=== PATIENT | female | born 1955 | race Two or more races ===

== ENCOUNTER 2022-01-01 21:31 | Inpatient (IN) | payer OTHER, MEDICAID ==
[~2022-01-01] VITALS: Ht 152.4 cm; Wt 99.3 kg
[2022-01-01 22:51] LABS: Basophils # (auto) 0 10 ^3/uL (0-0.2); Basophils % (auto) 0.4 % (0.0-2.0); Eosinophils # (auto) 0 10 ^3/uL (0-0.8); Hematocrit 35.5 % (36.0-46.0); Hemoglobin 11.2 g/dL (12.2-16.2); Lymphocytes # (auto) 1.2 10 ^3/uL (0.4-5.4); Lymphocytes % (auto) 11.8 % (10.0-50.0); Mean Corpuscular Hemoglobin 25.3 pg (28.0-32.0); Mean Corpuscular Hgb Conc. 31.5 g/dL (32.0-36.0); Mean Corpuscular Volume 80.3 fL (80.0-100.0); Monocytes # (auto) 0.7 10 ^3/uL (0-1.3); Monocytes % (auto) 6.7 % (0.0-12.0); Neutrophils % (auto) 81.1 % (37.0-80.0); Nucleated Red Blood Cells % 0.1 %; Red Blood Cells 4.43 10^6/uL (4.0-5.20); Red Cell Distribution Width 17.9 % (11.8-14.3); White Blood Cell 9.9 10^3/uL (4.4-10.8)
[2022-01-01 23:28] LABS: Albumin 3.9 g/dL (3.4-5.0); Calcium 9.3 mg/dL (8.5-10.1); Magnesium 2.2 mg/dL (1.6-2.6); Potassium 3.4 mmol/L (3.5-5.1)
[2022-01-01 23:30] LABS: BUN/Creatinine Ratio 22.9
[2022-01-01 23:31] LABS: Bilirubin, Total 0.5 mg/dL (0.2-1.0); Total Protein 9.8 g/dL (6.4-8.2)
[2022-01-01 23:48] LABS: INR 1.09 (0.9-1.15)
[2022-01-02] MEDS ORDERED: MORPHINE SULFATE INJ 2 MG/ml SYRG IV ONE ×3 (01:15→07:05)
[2022-01-02] MEDS ORDERED: FAMOTIDINE (10MG/ML) 2ML VL IV ONE (02:30)
[2022-01-02] MEDS ORDERED: ALUM & MAG HYDROX-SIMETH LIQ(MAALOX) 30 ML PO ONE (02:30)
[2022-01-02] MEDS ORDERED: LACTATED RINGER'S 1,000 ML IV ONE (02:30)
[2022-01-02] MEDS ORDERED: ONDANSETRON HCL 4 MG/2 ML VIAL IV ONE (02:30)
[2022-01-02] MEDS ORDERED: LIDOCAINE VISCOUS 2% 15ML UD PO ONE (02:30)
[2022-01-02] MEDS ORDERED: HYDROcodone-ACET 5/325MG TAB PO ONE (05:15)
[2022-01-02] MEDS ORDERED: ADENOSINE 57 MG in GIVE UN-DILUTED 0 ML IV ONE (08:45)
[2022-01-02 10:28] LABS: Urine Bacteria FEW /hpf (None Seen); Urine Blood 2+ /uL (Negative); Urine Budding Yeast OCCASIONAL /hpf (None Seen); Urine Specific Gravity 1.026 (1.001-1.035); Urine WBC 332 /hpf (0 - 5); Urine WBC Clumps PRESENT /hpf (None Seen)
[2022-01-02] MEDS ORDERED: PANTOPRAZOLE 40 MG/10 ML VIAL INJ IV ONE (10:45)
[2022-01-02] MEDS ORDERED: MORPHINE SULFATE INJ 2 MG/ml SYRG IV PRN ×2 (10:45)
[2022-01-02] MEDS ORDERED: NITROGLYCERIN 0.4 MG SL TAB SL PRN (10:45)
[2022-01-02] MEDS ORDERED: cefTRIAXone 1GM/50ML D5W 50 ML IV ONE (10:45)
[2022-01-02 10:56] LABS: Albumin 3.7 g/dL (3.4-5.0); Calcium 9.5 mg/dL (8.5-10.1)
[2022-01-02 11:03] LABS: BUN/Creatinine Ratio 21.9; Bilirubin, Total 0.5 mg/dL (0.2-1.0); Total Protein 9.6 g/dL (6.4-8.2)
[2022-01-02 11:33] LABS: Potassium 2.7 mmol/L (3.5-5.1)
[2022-01-02] MEDS: SOD CHL 0.45% 1,000 ML IV SCH ×2 (11:41→20:45)
[2022-01-02] MEDS ORDERED: POTASSIUM EFFERVESENT TAB 25 MEQ PO ONE (11:45)
[2022-01-02 11:47] LABS: Alcohol, Urine < 3.0 mg/dL (0-10); Amphetamine Screen, Urine NEGATIVE (NEGATIVE); Barbiturate Scree,Urine NEGATIVE (NEGATIVE); Benzodiazephine Screen, Urine NEGATIVE (NEGATIVE); Cocaine Screen, Urine NEGATIVE (NEGATIVE); Opiate Scree,Urine NEGATIVE (NEGATIVE); Phencyclidine Screen, Urine NEGATIVE (NEGATIVE)
[2022-01-02 11:55] LABS: Cannabinoid Screen, Urine POSITIVE (NEGATIVE)
[2022-01-02] MEDS: POTASSIUM CHL 20MEQ/100ML 100 ML IV SCH ×2 (11:57→13:45)
[2022-01-02 12:09] LABS: Eosinophils # (auto) 0.1 10 ^3/uL (0-0.8); Hemoglobin 11.2 g/dL (12.2-16.2); Lymphocytes # (auto) 0.9 10 ^3/uL (0.4-5.4)
[2022-01-02 12:12] LABS: Basophils # (auto) 0 10 ^3/uL (0-0.2); Basophils % (auto) 0.4 % (0.0-2.0); Eosinophils % (auto) 0.9 % (0.0-7.0); Lymphocytes % (auto) 8.9 % (10.0-50.0); Mean Corpuscular Hemoglobin 26.2 pg (28.0-32.0); Mean Corpuscular Hgb Conc. 32.1 g/dL (32.0-36.0); Mean Corpuscular Volume 81.4 fL (80.0-100.0); Monocytes # (auto) 0.6 10 ^3/uL (0-1.3); Monocytes % (auto) 5.8 % (0.0-12.0); Neutrophils # (auto) 8.1 10 ^3/uL (1.6-8.6); Nucleated Red Blood Cells % 0.2 %; Red Blood Cells 4.29 10^6/uL (4.0-5.20); Red Cell Distribution Width 17.8 % (11.8-14.3); White Blood Cell 9.7 10^3/uL (4.4-10.8)
[2022-01-02] MEDS ORDERED: OPTISON 3ml Vial for INJ IV ONE (14:57)
[2022-01-02 18:31] LABS: Calcium 8.9 mg/dL (8.5-10.1); Potassium 3.5 mmol/L (3.5-5.1)
[2022-01-02] MEDS ORDERED: ESZO1TAB9 PO (19:32)
[2022-01-02] MEDS ORDERED: OLAN20TA PO (19:33)
[2022-01-02] MEDS: SUCRALFATE 1 GM/10 ML ORAL SUSP PO SCH (21:01)
[2022-01-02] MEDS: PANTOPRAZOLE 40 MG/10 ML VIAL INJ IV SCH (21:01)
[2022-01-02 22:00] VITALS: BP 117/80
[2022-01-03 05:00] VITALS: BP 117/68
[2022-01-03 05:37] LABS: Basophils # (auto) 0.1 10 ^3/uL (0-0.2); Basophils % (auto) 0.9 % (0.0-2.0); Eosinophils # (auto) 0 10 ^3/uL (0-0.8); Eosinophils % (auto) 0.3 % (0.0-7.0); Hematocrit 33.3 % (36.0-46.0); Hemoglobin 10.4 g/dL (12.2-16.2); Lymphocytes # (auto) 2.1 10 ^3/uL (0.4-5.4); Lymphocytes % (auto) 25.3 % (10.0-50.0); Mean Corpuscular Hgb Conc. 31.3 g/dL (32.0-36.0); Mean Corpuscular Volume 83.2 fL (80.0-100.0); Monocytes # (auto) 0.4 10 ^3/uL (0-1.3); Monocytes % (auto) 5.2 % (0.0-12.0); Neutrophils # (auto) 5.6 10 ^3/uL (1.6-8.6); Neutrophils % (auto) 68.3 % (37.0-80.0); Red Cell Distribution Width 17.6 % (11.8-14.3); White Blood Cell 8.3 10^3/uL (4.4-10.8)
[2022-01-03 05:49] LABS: Albumin 3.2 g/dL (3.4-5.0); Calcium 8.6 mg/dL (8.5-10.1)
[2022-01-03 05:53] LABS: BUN/Creatinine Ratio 22.6; Bilirubin, Total 0.7 mg/dL (0.2-1.0); Total Protein 8.6 g/dL (6.4-8.2)
[2022-01-03] MEDS: SUCRALFATE 1 GM/10 ML ORAL SUSP PO SCH ×4 (06:19→21:10)
[2022-01-03] MEDS: SOD CHL 0.45% 1,000 ML IV SCH ×2 (07:00→16:52)
[2022-01-03 09:00] VITALS: BP 94/45
[2022-01-03] MEDS: PANTOPRAZOLE 40 MG/10 ML VIAL INJ IV SCH ×2 (09:55→21:10)
[2022-01-03] MEDS: cefTRIAXone 1GM/50ML D5W 50 ML IV SCH (09:57)
[2022-01-03] MEDS ORDERED: PANTOPRAZOLE 40 MG/10 ML VIAL INJ IV SCH (10:00)
[2022-01-03 13:00] VITALS: BP 92/60
[2022-01-03] MEDS ORDERED: POTASSIUM CHL 20 Meq TABLET PO ONE (13:30)
[2022-01-03] MEDS ORDERED: ACETAMINOPHEN 325 MG TAB PO PRN (13:30)
[2022-01-03] MEDS: POTASSIUM CHL 20MEQ/100ML 100 ML IV SCH ×2 (15:00→18:13)
[2022-01-03 17:00] VITALS: BP 102/52
[2022-01-03] MEDS: TEMAZEPAM 15 MG CAP PO PRN (21:10)
[2022-01-03 22:17] VITALS: BP 105/64
[2022-01-04 05:11] VITALS: BP 99/59
[2022-01-04] MEDS: SUCRALFATE 1 GM/10 ML ORAL SUSP PO SCH ×4 (06:01→21:07)
[2022-01-04 06:46] LABS: BUN/Creatinine Ratio 18.9; Basophils # (auto) 0 10 ^3/uL (0-0.2); Basophils % (auto) 0.3 % (0.0-2.0); Calcium 8.2 mg/dL (8.5-10.1); Eosinophils # (auto) 0 10 ^3/uL (0-0.8); Eosinophils % (auto) 0.6 % (0.0-7.0); Hematocrit 25.5 % (36.0-46.0); Hemoglobin 8.2 g/dL (12.2-16.2); Lymphocytes # (auto) 1.8 10 ^3/uL (0.4-5.4); Lymphocytes % (auto) 34.3 % (10.0-50.0); Mean Corpuscular Hemoglobin 26.4 pg (28.0-32.0); Mean Corpuscular Hgb Conc. 32.1 g/dL (32.0-36.0); Mean Corpuscular Volume 82.2 fL (80.0-100.0); Monocytes # (auto) 0.3 10 ^3/uL (0-1.3); Monocytes % (auto) 6.5 % (0.0-12.0); Neutrophils # (auto) 3.1 10 ^3/uL (1.6-8.6); Neutrophils % (auto) 58.3 % (37.0-80.0); Nucleated Red Blood Cells % 0.2 %; Potassium 3.6 mmol/L (3.5-5.1); Red Cell Distribution Width 17.2 % (11.8-14.3); White Blood Cell 5.3 10^3/uL (4.4-10.8)
[2022-01-04] MEDS ORDERED: LIDOCAINE VISCOUS 2% 15ML UD ONE (07:40)
[2022-01-04] MEDS ORDERED: SODIUM CHLORIDE LOCK 10 ML ONE (07:40)
[2022-01-04] MEDS ORDERED: diphenhdrAMINE HCL 50 MG/1 ML VL ONE (07:40)
[2022-01-04] MEDS ORDERED: MIDAZOLAM HCL 5 MG/ML-1ML VIAL ONE (07:40)
[2022-01-04] MEDS ORDERED: fentaNYL CITRATE 100 MCG/2 ML VL ONE ×2 (07:41→10:10)
[2022-01-04] MEDS ORDERED: MIDAZOLAM HCL 2MG/2ML 2ml VIAL (1mg/ml) ONE (10:10)
[2022-01-04] MEDS ORDERED: PROPOFOL 10 MG/ML 20 ML IV ONE (10:45)
[2022-01-04] MEDS ORDERED: ONDANSETRON HCL 4 MG/2 ML VIAL IV PRN (10:45)
[2022-01-04] MEDS: cefTRIAXone 1GM/50ML D5W 50 ML IV SCH (12:51)
[2022-01-04] MEDS: PANTOPRAZOLE 40 MG/10 ML VIAL INJ IV SCH ×2 (12:52→21:07)
[2022-01-04 13:00] VITALS: BP 116/61
[2022-01-04] MEDS: AZITHROMYCIN 500MG/ 250ML 250 ML IV SCH (16:58)
[2022-01-04 17:00] VITALS: BP 112/66
[2022-01-04] MEDS: ONDANSETRON HCL 4 MG/2 ML VIAL IV PRN (19:48)
[2022-01-04] MEDS: HYDROcodone-ACET 5/325MG TAB PO PRN (21:08)
[2022-01-04] MEDS: SOD CHL 0.45% 1,000 ML IV SCH (21:45)
[2022-01-04 21:59] VITALS: BP 117/64
[2022-01-04 22:29] LABS: Protein, Urine 46.1 mg/dL (0.0-11.9)
[2022-01-04] MEDS: TEMAZEPAM 15 MG CAP PO PRN (23:42)
[2022-01-05 05:00] VITALS: BP 100/59
[2022-01-05] MEDS: SUCRALFATE 1 GM/10 ML ORAL SUSP PO SCH ×4 (06:01→17:30)
[2022-01-05] MEDS: HYDROcodone-ACET 5/325MG TAB PO PRN ×2 (06:04→13:16)
[2022-01-05 06:05] LABS: Basophils # (auto) 0 10 ^3/uL (0-0.2); Basophils % (auto) 0.4 % (0.0-2.0); Eosinophils # (auto) 0 10 ^3/uL (0-0.8); Lymphocytes # (auto) 1.4 10 ^3/uL (0.4-5.4); Mean Corpuscular Volume 82.8 fL (80.0-100.0); Monocytes # (auto) 0.4 10 ^3/uL (0-1.3)
[2022-01-05 06:08] LABS: Eosinophils % (auto) 0.4 % (0.0-7.0); Hematocrit 27.2 % (36.0-46.0); Hemoglobin 8.6 g/dL (12.2-16.2); Lymphocytes % (auto) 27.9 % (10.0-50.0); Mean Corpuscular Hemoglobin 26.1 pg (28.0-32.0); Mean Corpuscular Hgb Conc. 31.6 g/dL (32.0-36.0); Monocytes % (auto) 8.3 % (0.0-12.0); Neutrophils # (auto) 3.2 10 ^3/uL (1.6-8.6); Nucleated Red Blood Cells % 0.1 %; Red Blood Cells 3.28 10^6/uL (4.0-5.20); Red Cell Distribution Width 17.5 % (11.8-14.3); White Blood Cell 5.1 10^3/uL (4.4-10.8)
[2022-01-05 06:22] LABS: BUN/Creatinine Ratio 13.9; Calcium 7.8 mg/dL (8.5-10.1); Potassium 3.4 mmol/L (3.5-5.1)
[2022-01-05] MEDS ORDERED: PNEUMOCOCCAL VACC POLYS 25 MCG/0.5 ML VIAL IM ONE (07:00)
[2022-01-05] MEDS: SOD CHL 0.45% 1,000 ML IV SCH ×2 (08:45→18:45)
[2022-01-05 09:22] VITALS: BP 105/63
[2022-01-05] MEDS: cefTRIAXone 1GM/50ML D5W 50 ML IV SCH (09:32)
[2022-01-05] MEDS: PANTOPRAZOLE 40 MG/10 ML VIAL INJ IV SCH (09:32)
[2022-01-05] MEDS: AZITHROMYCIN 500MG/ 250ML 250 ML IV SCH (10:15)
[2022-01-05 12:37] VITALS: BP 113/69
[2022-01-05] MEDS: ONDANSETRON HCL 4 MG/2 ML VIAL IV PRN ×2 (13:16→17:26)
[2022-01-05] MEDS ORDERED: POTASSIUM CHL 20MEQ/100ML 100 ML IV ONE (14:15)
[2022-01-05] MEDS ORDERED: LEVO500T31 PO (14:37)
[2022-01-05] MEDS ORDERED: PANT40TA2 PO (14:37)
[2022-01-05 16:38] VITALS: BP 120/80
[2022-01-05 18:00] VITALS: BP 113/69
== END 2022-01-05 19:30 | disposition home health service (06) | DRG 391 ==
LOC: EDBD 21:31 → ER 21:31 → TELE 01-02 10:40 → TELE-CENTR 01-02 16:42
PROVIDERS: ADMIT Registered Nurse; ATTEND Internal Medicine
PROC: 0DB68ZX Excision of Stomach, Via Natural or Artificial Opening Endoscopic, Diagnostic (ICD-10-PCS; principal; 2022-01-04 10:05)
DX: K29.70 Gastritis, unspecified, without bleeding (principal); J96.01 Acute respiratory failure with hypoxia; E87.1 Hypo-osmolality and hyponatremia; N17.9 Acute kidney failure, unspecified; N39.0 Urinary tract infection, site not specified; Z68.41 Body mass index [BMI] 40.0-44.9, adult; J98.11 Atelectasis; K92.1 Melena; E66.01 Morbid (severe) obesity due to excess calories; E86.0 Dehydration; E87.6 Hypokalemia; G89.29 Other chronic pain; I10 Essential (primary) hypertension; K31.7 Polyp of stomach and duodenum; Z98.84 Bariatric surgery status; D64.9 Anemia, unspecified; E78.5 Hyperlipidemia, unspecified; M54.9 Dorsalgia, unspecified; R31.9 Hematuria, unspecified; R79.89 Other specified abnormal findings of blood chemistry; R80.9 Proteinuria, unspecified; R82.4 Acetonuria; R94.31 Abnormal electrocardiogram [ECG] [EKG]; Z88.8 Allergy status to other drugs, medicaments and biological substances; Z71.6 Tobacco abuse counseling
CPT/HCPCS: 36415; 36600; 71045; 71250; 78452; 78582; 80048; 80053; 80061; 80307; 81001; 82570; 82805; 83036; 83690; 83735; 83880; 84156; 84484; 85025; 85379; 85610; 85730; 87086; 93005; 93017; 93306; 93970; 96361; 96365; 96375; 96376; C9113; G0378; J0153; J0696; J2250; J2405; J2704; J3480; J3490; Q9956

== ENCOUNTER 2022-12-01 21:01 | Inpatient (IN) | payer OTHER, MEDICAID ==
[~2022-12-01] VITALS: Ht 167.6 cm; Wt 108.1 kg
[~2022-12-01 21:01] MED LIST: ESZO1TAB9 PO; LEVO500T31 PO; OLAN20TA PO; PANT40TA2 PO
[2022-12-01 22:03] LABS: Basophils # (auto) 0 10 ^3/uL (0-0.2); Basophils % (auto) 0.4 % (0.0-2.0); Eosinophils # (auto) 0.1 10 ^3/uL (0-0.8); Eosinophils % (auto) 1.2 % (0.0-7.0); Hematocrit 24.5 % (36.0-46.0); Hemoglobin 7.3 g/dL (12.2-16.2); Lymphocytes # (auto) 2.2 10 ^3/uL (0.4-5.4); Lymphocytes % (auto) 39.3 % (10.0-50.0); Mean Corpuscular Hemoglobin 19.3 pg (28.0-32.0); Mean Corpuscular Hgb Conc. 29.8 g/dL (32.0-36.0); Mean Corpuscular Volume 64.8 fL (80.0-100.0); Monocytes # (auto) 0.5 10 ^3/uL (0-1.3); Monocytes % (auto) 8.9 % (0.0-12.0); Neutrophils # (auto) 2.8 10 ^3/uL (1.6-8.6); Neutrophils % (auto) 50.2 % (37.0-80.0); Nucleated Red Blood Cells % 0.1 %; Red Blood Cells 3.77 10^6/uL (4.0-5.20); Red Cell Distribution Width 21.2 % (11.8-14.3); White Blood Cell 5.5 10^3/uL (4.4-10.8)
[2022-12-01 22:20] LABS: Albumin 3.1 g/dL (3.4-5.0); Calcium 7.9 mg/dL (8.5-10.1); Magnesium 1.6 mg/dL (1.6-2.6)
[2022-12-01 22:24] LABS: BUN/Creatinine Ratio 7.7 (10.0-20.0); Bilirubin, Total 0.3 mg/dL (0.2-1.0); Total Protein 8.7 g/dL (6.4-8.2)
[2022-12-01 22:28] LABS: Potassium 2.8 mmol/L (3.5-5.1)
[2022-12-01 22:39] LABS: INR 1.01 (0.9-1.15); Partial Thromboplastin Time 25.7 sec (24.6-33.4)
[2022-12-01] MEDS ORDERED: POTASSIUM EFFERVESENT TAB 25 MEQ PO ONE (22:45)
[2022-12-01] MEDS ORDERED: LACTATED RINGER'S 2,000 ML IV ONE (23:15)
[2022-12-02] MEDS ORDERED: ONDANSETRON HCL 4 MG/2 ML VIAL IV ONE (04:15)
[2022-12-02] MEDS ORDERED: HYDROmorphone HCL 2 MG/ML VL/or syr IV ONE (04:15)
[2022-12-02 04:19] LABS: Urine Bacteria FEW /hpf (None Seen); Urine Blood Negative /uL (Negative); Urine Specific Gravity 1.001 (1.001-1.035); Urine WBC 7 /hpf (0 - 5)
[2022-12-02] MEDS ORDERED: ACETAMINOPHEN 325 MG TAB PO PRN (04:45)
[2022-12-02] MEDS ORDERED: MORPHINE SULFATE INJ 2 MG/ml SYRG IV PRN ×2 (04:45→06:15)
[2022-12-02] MEDS ORDERED: ONDANSETRON HCL 4 MG/2 ML VIAL IV PRN (04:45)
[2022-12-02] MEDS ORDERED: DOCUSATE SOD 100 MG CAP PO PRN (04:45)
[2022-12-02] MEDS: SODIUM CHLORIDE 0.9% 1,000 ML IV SCH ×2 (05:09→21:44)
[2022-12-02 05:27] LABS: Hematocrit 23.7 % (36.0-46.0); Mean Corpuscular Volume 66.3 fL (80.0-100.0); Monocytes # (auto) 0.4 10 ^3/uL (0-1.3); Nucleated Red Blood Cells % 0.1 %; Red Blood Cells 3.57 10^6/uL (4.0-5.20); White Blood Cell 5.8 10^3/uL (4.4-10.8)
[2022-12-02 05:29] LABS: Basophils # (auto) 0.1 10 ^3/uL (0-0.2); Eosinophils # (auto) 0.1 10 ^3/uL (0-0.8); Lymphocytes % (auto) 33.7 % (10.0-50.0); Mean Corpuscular Hemoglobin 19.6 pg (28.0-32.0); Mean Corpuscular Hgb Conc. 29.6 g/dL (32.0-36.0); Monocytes % (auto) 6.8 % (0.0-12.0); Neutrophils # (auto) 3.3 10 ^3/uL (1.6-8.6); Neutrophils % (auto) 57.5 % (37.0-80.0)
[2022-12-02 05:50] LABS: Albumin 2.8 g/dL (3.4-5.0); Calcium 7.6 mg/dL (8.5-10.1); Potassium 3.1 mmol/L (3.5-5.1)
[2022-12-02 05:53] LABS: BUN/Creatinine Ratio 8.3 (10.0-20.0); Bilirubin, Total 0.2 mg/dL (0.2-1.0); Total Protein 7.9 g/dL (6.4-8.2)
[2022-12-02] MEDS ORDERED: NITROGLYCERIN 0.4 MG SL TAB SL PRN (06:15)
[2022-12-02 07:18] LABS: Red Cell Distribution Width 20.9 % (11.8-14.3)
[2022-12-02 07:19] LABS: Hemoglobin 7.1 g/dL (12.2-16.2)
[2022-12-02] MEDS ORDERED: POTASSIUM CHL 20 Meq TABLET PO ONE (07:45)
[2022-12-02] MEDS ORDERED: ASPirin 81 mg TAB PO SCH (10:00)
[2022-12-02] MEDS: FAMOTIDINE (10MG/ML) 2ML VL IV SCH ×2 (10:04→21:44)
[2022-12-02] MEDS ORDERED: POTASSIUM CHL 20MEQ/100ML 100 ML IV ONE (10:15)
[2022-12-02] MEDS: cefTRIAXone 1GM/50ML D5W 50 ML IV SCH (10:50)
[2022-12-02 10:58] LABS: % Iron Saturation 3.2 % (15-50)
[2022-12-02 12:23] VITALS: BP 140/50
[2022-12-02] MEDS ORDERED: OLAN10TA PO (12:40)
[2022-12-02 12:56] VITALS: BP 140/50
[2022-12-02] MEDS: HYDROcodone-ACET 5/325MG TAB PO PRN ×2 (15:50→21:43)
[2022-12-02 17:00] VITALS: BP 130/72
[2022-12-02] MEDS ORDERED: IRON SUCROSE COMPLEX 200 MG in SODIUM CHL 0.9% 100 ML IV SCH (17:00)
[2022-12-02] MEDS ORDERED: MIRT-94 PO (17:10)
[2022-12-02] MEDS ORDERED: LEV25T PO (17:11)
[2022-12-02] MEDS: SODIUM FERR GLUC 62.5MG/5ML 125 MG in SODIUM CHL 0.9% 100 ML IV SCH (19:35)
[2022-12-02] MEDS ORDERED: ESZO1TAB21 PO (19:37)
[2022-12-02] MEDS ORDERED: PREG-110 PO (19:41)
[2022-12-02 19:56] LABS: Hematocrit 23.8 % (36.0-46.0); Mean Corpuscular Hemoglobin 18.9 pg (28.0-32.0); Mean Corpuscular Hgb Conc. 28.6 g/dL (32.0-36.0); Mean Corpuscular Volume 65.8 fL (80.0-100.0); Red Blood Cells 3.61 10^6/uL (4.0-5.20); White Blood Cell 4.7 10^3/uL (4.4-10.8)
[2022-12-02 20:05] LABS: BUN/Creatinine Ratio 5.3 (10.0-20.0); Calcium 7.7 mg/dL (8.5-10.1); Potassium 3.4 mmol/L (3.5-5.1)
[2022-12-02 20:07] LABS: Hemoglobin 6.8 g/dL (12.2-16.2); Red Cell Distribution Width 21.5 % (11.8-14.3)
[2022-12-02 20:08] LABS: Band Neutrophils % (manual) 0; Basophils % (manual) 0 (0.0-2.0); Blast Cells 0; Eosinophils % (manual) 0 (0-7); Metamyelocytes % 0; Myelocytes % 0; Promyelocytes % 0; Reactive Lymphocytes 0
[2022-12-02] MEDS: ATORVASTATIN 20 MG TAB PO SCH (21:44)
[2022-12-02 22:00] VITALS: BP 120/58
[2022-12-02 22:22] LABS: Lymphocytes % (manual) 42 (10.0-50.0); Monocytes % (manual) 9 (0-12)
[2022-12-02] MEDS: MELATONIN 5 MG TAB PO PRN (23:13)
[2022-12-03] VITALS (13 sets, daily range): BP systolic 100–157; BP diastolic 46–85
[2022-12-03 07:10] LABS: Hemoglobin 7.4 g/dL (12.2-16.2); Mean Corpuscular Volume 68.9 fL (80.0-100.0); Nucleated Red Blood Cells % 0.2 %
[2022-12-03 07:12] LABS: Basophils # (auto) 0.1 10 ^3/uL (0-0.2); Eosinophils # (auto) 0.1 10 ^3/uL (0-0.8); Eosinophils % (auto) 2.5 % (0.0-7.0); Hematocrit 24.3 % (36.0-46.0); Lymphocytes # (auto) 1.2 10 ^3/uL (0.4-5.4); Lymphocytes % (auto) 23.3 % (10.0-50.0); Mean Corpuscular Hemoglobin 20.9 pg (28.0-32.0); Mean Corpuscular Hgb Conc. 30.4 g/dL (32.0-36.0); Monocytes # (auto) 0.4 10 ^3/uL (0-1.3); Monocytes % (auto) 8.2 % (0.0-12.0); Neutrophils # (auto) 3.4 10 ^3/uL (1.6-8.6); Red Blood Cells 3.53 10^6/uL (4.0-5.20); Red Cell Distribution Width 24.3 % (11.8-14.3); White Blood Cell 5.2 10^3/uL (4.4-10.8)
[2022-12-03 07:28] LABS: Potassium 3.1 mmol/L (3.5-5.1)
[2022-12-03 07:35] LABS: Albumin 2.5 g/dL (3.4-5.0); Bilirubin, Total 0.6 mg/dL (0.2-1.0); Calcium 7.2 mg/dL (8.5-10.1); Total Protein 6.9 g/dL (6.4-8.2)
[2022-12-03] MEDS: cefTRIAXone 1GM/50ML D5W 50 ML IV SCH (08:58)
[2022-12-03] MEDS: FAMOTIDINE (10MG/ML) 2ML VL IV SCH ×2 (08:58→21:34)
[2022-12-03] MEDS: SODIUM FERR GLUC 62.5MG/5ML 125 MG in SODIUM CHL 0.9% 100 ML IV SCH (12:38)
[2022-12-03] MEDS: POTASSIUM CHL 20MEQ/100ML 100 ML IV SCH ×2 (13:23→23:21)
[2022-12-03] MEDS ORDERED: POTASSIUM CHL 20 Meq TABLET PO ONE (14:30)
[2022-12-03] MEDS ORDERED: MAGNESIUM SULFATE 1GM/100ML 200 ML IV ONE (20:31)
[2022-12-03] MEDS ORDERED: POTASSIUM CHL 20MEQ/100ML 200 ML IV ONE (20:31)
[2022-12-03] MEDS: MAGNESIUM SULFATE 1GM/100ML 100 ML IV SCH ×2 (20:45→22:21)
[2022-12-03] MEDS: SODIUM CHLORIDE 0.9% 1,000 ML IV SCH (20:46)
[2022-12-03] MEDS: ATORVASTATIN 20 MG TAB PO SCH (21:34)
[2022-12-03] MEDS: MELATONIN 5 MG TAB PO PRN (21:35)
[2022-12-04] MEDS: HYDROcodone-ACET 5/325MG TAB PO PRN (00:19)
[2022-12-04] MEDS: POTASSIUM CHL 20MEQ/100ML 100 ML IV SCH (02:48)
[2022-12-04 05:00] VITALS: BP 135/69
[2022-12-04 06:10] LABS: BUN/Creatinine Ratio 3.6 (10.0-20.0); Calcium 8.2 mg/dL (8.5-10.1); Potassium 3.2 mmol/L (3.5-5.1)
[2022-12-04 06:31] LABS: Basophils # (auto) 0 10 ^3/uL (0-0.2); Eosinophils # (auto) 0.1 10 ^3/uL (0-0.8); Hemoglobin 7.4 g/dL (12.2-16.2); Mean Corpuscular Hemoglobin 21.1 pg (28.0-32.0); Neutrophils # (auto) 3.1 10 ^3/uL (1.6-8.6); Red Blood Cells 3.52 10^6/uL (4.0-5.20); White Blood Cell 4.9 10^3/uL (4.4-10.8)
[2022-12-04 06:33] LABS: Basophils % (auto) 0.3 % (0.0-2.0); Eosinophils % (auto) 2.3 % (0.0-7.0); Lymphocytes # (auto) 1.1 10 ^3/uL (0.4-5.4); Lymphocytes % (auto) 22.3 % (10.0-50.0); Mean Corpuscular Hgb Conc. 30.9 g/dL (32.0-36.0); Mean Corpuscular Volume 68.1 fL (80.0-100.0); Monocytes # (auto) 0.5 10 ^3/uL (0-1.3); Monocytes % (auto) 10.8 % (0.0-12.0); Neutrophils % (auto) 64.3 % (37.0-80.0); Nucleated Red Blood Cells % 0.7 %
[2022-12-04 06:51] LABS: Red Cell Distribution Width 24.4 % (11.8-14.3)
[2022-12-04] MEDS: FAMOTIDINE (10MG/ML) 2ML VL IV SCH (09:21)
[2022-12-04] MEDS: cefTRIAXone 1GM/50ML D5W 50 ML IV SCH (09:21)
[2022-12-04] MEDS ORDERED: DOCU-94 PO (11:15)
[2022-12-04] MEDS ORDERED: FER325T PO (11:15)
[2022-12-04] MEDS ORDERED: BACDST PO (11:16)
[2022-12-04] MEDS ORDERED: POTASSIUM CHL 20 Meq TABLET PO ONE (12:30)
[2022-12-04 13:00] VITALS: BP 143/77
[2022-12-04] MEDS: SODIUM FERR GLUC 62.5MG/5ML 125 MG in SODIUM CHL 0.9% 100 ML IV SCH (13:11)
[2022-12-04 14:52] VITALS: BP 143/77
[2022-12-05 11:20] LABS: Folate (Folic Acid) 4.25 ng/mL (5.38-24)
== END 2022-12-04 15:30 | disposition home or self-care (01) | DRG 812 ==
LOC: ER 21:01 → TELE 12-02 06:08 → TELE-CENTR 12-02 11:50
PROVIDERS: ADMIT Nurse Practitioner Family; ATTEND Internal Medicine
PROC: 30233N1 Transfusion of Nonautologous Red Blood Cells into Peripheral Vein, Percutaneous Approach (ICD-10-PCS; principal; 2022-12-03)
DX: D50.9 Iron deficiency anemia, unspecified (principal); N39.0 Urinary tract infection, site not specified; N17.9 Acute kidney failure, unspecified; K90.9 Intestinal malabsorption, unspecified; R07.89 Other chest pain; E87.6 Hypokalemia; D69.6 Thrombocytopenia, unspecified; G47.00 Insomnia, unspecified; I10 Essential (primary) hypertension; E83.51 Hypocalcemia; E88.09 Other disorders of plasma-protein metabolism, not elsewhere classified; G25.2 Other specified forms of tremor; G89.29 Other chronic pain; E11.9 Type 2 diabetes mellitus without complications; G20 Parkinson's disease; D63.8 Anemia in other chronic diseases classified elsewhere; Z98.84 Bariatric surgery status
CPT/HCPCS: 36415; 71045; 80048; 80053; 81001; 82270; 82607; 82728; 82746; 83540; 83550; 83615; 83735; 83880; 84132; 84425; 84484; 85007; 85025; 85027; 85610; 85730; 86850; 86900; 86901; 86920; 87086; 93005; 93306; 96361; 96365; 96375; 99291; G0378; J0696; J1756; J2405; J3480; J3490

== ENCOUNTER 2023-06-25 10:56 | Emergency (ER) | payer OTHER, MEDICAID ==
[~2023-06-25] VITALS: Ht 167.6 cm; Wt 93.2 kg
[~2023-06-25 10:56] MED LIST changes: +BACDST PO; +DOCU-94 PO; +ESZO1TAB21 PO; -ESZO1TAB9 PO; +FER325T PO; +LEV25T PO; -LEVO500T31 PO; +MIRT-94 PO; +OLAN10TA PO; -OLAN20TA PO; +PREG-110 PO
[2023-06-25] MEDS ORDERED: SODIUM CHLORIDE 0.9% 500 ML IV ONE (11:45)
[2023-06-25 12:29] LABS: Basophils # (auto) 0.1 10 ^3/uL (0-0.2); Basophils % (auto) 0.8 % (0.0-2.0); Eosinophils # (auto) 0.2 10 ^3/uL (0-0.8); Eosinophils % (auto) 2.3 % (0.0-7.0); Hematocrit 43.7 % (36.0-46.0); Hemoglobin 14.3 g/dL (12.2-16.2); Lymphocytes # (auto) 1.8 10 ^3/uL (0.4-5.4); Lymphocytes % (auto) 23.9 % (10.0-50.0); Mean Corpuscular Hemoglobin 29.6 pg (28.0-32.0); Mean Corpuscular Hgb Conc. 32.7 g/dL (32.0-36.0); Mean Corpuscular Volume 90.6 fL (80.0-100.0); Monocytes # (auto) 0.6 10 ^3/uL (0-1.3); Monocytes % (auto) 8.7 % (0.0-12.0); Neutrophils # (auto) 4.7 10 ^3/uL (1.6-8.6); Neutrophils % (auto) 64.3 % (37.0-80.0); Red Blood Cells 4.82 10^6/uL (4.0-5.20); Red Cell Distribution Width 14.2 % (11.8-14.3); White Blood Cell 7.3 10^3/uL (4.4-10.8)
[2023-06-25 12:47] LABS: Alanine Aminotransferase 11 U/L (7-40); Albumin 4.8 g/dL (3.2-4.8); Alkaline Phosphatase 140 U/L (46-116); Anion Gap 13 (5-15); Aspartate Aminotransferase 15 U/L (13-40); BUN/Creatinine Ratio 6.8 (10.0-20.0); Blood Urea Nitrogen 27 mg/dL (9-23); Calcium 9.6 mg/dL (8.5-10.1); Carbon Dioxide 25 mmol/L (20-30); Chloride 95 mmol/L (98-107); Glucose 148 mg/dL (74-106); Sodium 133 mmol/L (136-145)
[2023-06-25 12:48] LABS: Bilirubin, Total 0.6 mg/dL (0.2-1.0); Total Protein 9.6 g/dL (5.7-8.2)
[2023-06-25] MEDS ORDERED: POTASSIUM EFFERVESENT TAB 25 MEQ PO ONE (14:45)
[2023-06-25 16:49] VITALS: BP 127/67; PULSE 105; RESP 20; TEMP 97.3; O2SAT 94
[2023-06-25] MEDS: ONDANSETRON HCL 4 MG/2 ML VIAL IV ONE ×2 (16:51→17:25)
== END 2023-06-25 18:05 | disposition home or self-care (01) ==
LOC: ER 10:56
DX: G45.9 Transient cerebral ischemic attack, unspecified (principal); E87.6 Hypokalemia; R53.1 Weakness; R42 Dizziness and giddiness; F12.10 Cannabis abuse, uncomplicated
CPT/HCPCS: 36415; 70450; 80053; 82962; 83605; 84484; 85025; 87040; 93005; 96361; 96374; 99285; J2405; J7040

== ENCOUNTER 2025-03-18 18:47 | Emergency (ER) | payer BC, MEDICAID ==
[~2025-03-18] VITALS: Ht 167.6 cm; Wt 90.0 kg
[~2025-03-18 18:47] MED LIST changes: -ESZO1TAB21 PO; +ESZO2TAB24 PO; -PREG-110 PO; +PREG100C66 PO
--- NOTE | 2025-03-18 20:00 | DVH ---
EXAM: CT HEAD WITHOUT CONTRAST INDICATION: NATARAJAN TECHNIQUE: CT of the head without intravenous contrast. Radiation Dose : 1. Head: CT Dose: CTDI volume is 51.89 mGy. Dose-length product is 935.65 mGy*cm The dose indicators for CT are the volume Computed Tomography (CT) Dose Index (CTDIvol) and the Dose Length Product (DLP), and are measured in units of mGy and mGy-cm, respectively. These indicators are not patient dose, but values generated from the CT scanner acquisition factors. The report includes radiation exposure data for exposures received during this examination. COMPARISON: CT HEAD WITHOUT CONTRAST on DOS: 06/25/23 FINDINGS: Evaluation is mildly degraded by motion and streak artifact. No acute territorial infarct, intracranial hemorrhage, or mass effect. There are global involutional changes with compensatory prominence of the ventricles and sulci. Patchy periventricular and subcorti eddie white matter hypoattenuation is nonspecific but may be related to small vessel ischemic disease. The orbits are normal. The paranasal sinuses and mastoid air cells are clear. The osseous structures are unremarkable. IMPRESSION: 1. No acute territorial infarct, intracranial hemorrhage, or mass effect. 2. Age-related involutional changes. Chronic microvascular changes. 3. If clinical symptoms persist, MRI may be beneficial in further evaluation. Radiation optimization: All CT scans at this facility use at least one of these dose optimization millicent hniques: automated exposure control mA and/or kV adjustment per patient size (includes targeted exam s where dose is matched to clinical indication) or iterative reconstruction.
--- NOTE | 2025-03-18 20:07 | DVH ---
CHEST RADIOGRAPH REASON FOR EXAM: body aches COMPARISON: XY CHEST PORTABLE on DOS: 12/01/22, CHEST WITHOUT CONTRAST on DOS: 01/04/22, CXRP on DOS: , CHEST PORTABLE on DOS: 01/01/22 TECHNIQUE: One view of the chest is provided FINDINGS: The cardiomediastinal silhouette is stable. There is aortic atherosclerosis. There is eleva tion of the right hemidiaphragm, unchanged. There is platelike atelectasis at the right lung base. No other focal airspace disease is identified. There is no significant pleural effusion. There is no p neumothorax. No acute osseous abnormality is identified. IMPRESSION: Platelike atelectasis of the right lung base. No other focal airspace disease is identified. Persistent elevation of the right hemidiaphragm.
[2025-03-18 21:02] LABS: Alanine Aminotransferase 11 U/L (7-40); Albumin 4.6 g/dL (3.2-4.8); Alkaline Phosphatase 108 U/L (46-116); Anion Gap 14 (5-15); BUN/Creatinine Ratio 8.2 (10.0-20.0); Bilirubin, Total 0.4 mg/dL (0.2-1.0); Calcium 9.6 mg/dL (8.7-10.4); Carbon Dioxide 22 mmol/L (20-31)
[2025-03-18 21:06] LABS: Blood Urea Nitrogen 8 mg/dL (9-23); Chloride 104 mmol/L (98-107); Glucose 114 mg/dL (74-106); Potassium 3.9 mmol/L (3.5-5.1); Sodium 140 mmol/L (136-145); Total Protein 9.1 g/dL (5.7-8.2)
--- NOTE | 2025-03-18 21:13 | ED.PDOC ---
GI ASSESSMENT HPI Comments HPI: 70-year-old female presents to the ED with chief complain of bilateral lower back pain onset 2 months. Patient has been experiencing headache, currently resolved, body aches, bilateral flank pain and tingling to bilateral feet for the past 2 months. Patient states she saw PCP about 1 month ago, was diagnosed with yeast infection, was not prescribed medication. She also states she was experiencing diarrhea, was taking Imodium and Pepto-Bismol, has now controlled diarrhea. Denies any fall, injury, trauma, shortness a breath, chest pain, dizziness, cough, congestion, dysuria, hematuria. No other symptoms or modifying factors present at this time. Initial Vitals BP: 175/102 HR: 67 RR: 20 O2: 98% Temp: 99.5 F Past Medical History: Denies Past Surgical History: gastric bypass Social History: Denies ETOH, smoking, and drug use. Medications: Lipitor Allergies: Prochlorperazine SHARYN: Multiple vague complaints HPI: Poor Historian. REVIEW OF SYSTEMS: CONSTITUTIONAL: Denies acute: fever, diaphoresis, chills, generalized weakness. HEAD: Denies acute: photophobia Eyes: Denies acute: Double vision, vision loss, eye pain, eye discharge. EARS: Denies acute: tinnitus, hearing loss, ear discharge, ear pain, THROAT: Denies acute: sore throat, swelling, difficulty swallowing , pain with swallowing, change in voice. NECK: Denies acute: neck pain, neck swelling, stiff neck. HEART: Denies acute : chest pain, palpitations, LUNGS: Denies acute: SOB, wheezing, cough, hemoptysis ABDOMEN: Denies acute: abdominal pain, Nausea, Vomiting, diarrhea, melena , hematemesis, hematochezia SKIN: Denies acute: rash, redness, lesions, itchiness. EXTREMITIES: Denies acute: calf pain, numbness, tingling, weakness, denies pain in extremity. Neuro: Denies acute: focal neurological deficit, motor or sensory focal neurological deficit, tremors, seizure like activity, confusion, dizziness, change in mental status, loss of bowel or bladder function, cauda equina like symptoms. : Denies acute: dysuria, hematuria, flank pain, increase in urinary frequency. PSYCH: Denies acute: hallucination, suicidal ideation, homicidal ideation. FEMALE: Denies acute: abnormal vaginal bleeding, foul odor, unusual discharge. PHYSICAL EXAM: General: ------no--acute distress, awake and alert. Head: normocephalic, atraumatic. Neck: supple, trachea is midline, no swelling. Throat: Normal phonation. Eyes:, no erythema, no purulent discharge, no proptosis, no icterus. Heart: regular rate, regular rhythm, no significant murmur appreciated. Lungs: no apparent respiratory distress, Able to speak in full sentences. No wheezing, no rhonchi, no crackles. No stridors Clear to auscultation bilaterally. Abdomen: non tender to palpation, non distended, soft, no guarding, no rebound, + bowel sounds. Mild nonspecific bilateral posterior iliac crest tenderness to palpation Neuro: Awake, Alert, oriented to name, self, situation, follows commands GCS=15. Speech is normal. Skin: no petechia, no purpura, no cyanosis, non-pale, not jaundice. Lower extremities: --no - Pitting edema no deformity, no focal swelling, no calf TTP. Makes eye contact. moves all four extremities. Face: no apparent facial droop. ED COURSE: DISCLAIMER: This medical document was created using an electronic medical record system with voice recognition software and computerized dictation system. Although this document has been carefully reviewed, there might still be some phonetic and typographical errors. Occasional wrong-word or "sound-alike" substitutions may have occurred due to the inherent limitations of voice recognition software. The se areas are purely typographical due to imperfections of the software programs and do not reflect any compromise in the patient's medical care. Please read the chart carefully and recognize, using context, where these substitutions have occurred. Chief Complaint: Headache Time Seen by MD: 21:00 Primary Care Provider: DANTE Reviewed Notes: Medications, Allergies Allergies: Coded Allergies: Prochlorperazine (Verified Allergy, Unknown, 01/01/22) Home Meds Active Scripts Sulfamethoxazole W/Trimethopri (Bactrim Ds Tablet) 1 Tab Tb, 1 TAB PO BID, #10 TAB Prov:LITO OHARA MD 12/04/22 Docusate Sodium (Colace) 100 Mg Cap, 100 MG PO DAILY PRN MDD Constipation, #30 MG Prov:LITO OHARA MD 12/04/22 Ferrous Sulfate (Ferrous Sulfate) 325 Mg Tab, 325 MG PO TIDWMEALS, #90 MG Prov:LITO OHARA MD 12/04/22 Pantoprazole Sodium Sesquihydr (Protonix) 40 Mg Tab, 40 MG PO BID, #60 TAB Prov:LITO OHARA MD 01/05/22 Reported Medications Pregabalin (Pregabalin) 100 Mg Cap, 1 CAP PO TID 12/02/22 Eszopiclone (Lunesta) 2 Mg Tab, 1 TAB PO QHSP PRN for INSOMNIA 12/02/22 Levothyroxine Sodium (Levothyroxine Sodium) 25 Mcg Tab, 1 TAB PO DAILY 12/02/22 Mirtazapine (REMERON) 30 Mg Tab, 1 TAB PO 12/02/22 Olanzapine (Zyprexa) 10 Mg Tab, 1 TAB PO 12/02/22 Information Source: Patient, Relative Mode of Arrival: Wheelchair Timing: Months Duration: Since onset Prehospital treatment: None Vomitus: None Stool: Loose Severity: Moderate Recent: None Recent Hx of: None Pain Location: Other (bilateral flank) Modifying Factors: Nothing Past Medical History PAST MEDICAL HISTORY: Denies Surgical History (Other): gastric bypass ELDERLY SITTER History: Denies all ELDERLY SITTER Hx Family History Family History: Reviewed,noncontributory to illness Social History Smoker: Non-Smoker Alcohol: Denies ETOH Use Drugs: Marijuana Lives In: Home Was a procedure done? Was a procedure done?: No GI differential Dx Differential Diagnosis: Other (Includes but not limited to thyroid disease, encephalopathy, electrolyte abnormality, sepsis, infection, intracranial pathology, drug adverse effects, arrhythmia, kidney insufficiency, ACS, CVA, malignancy, anemia) X-Ray, Labs, Meds, VS Vital Signs Date Time Temp Pulse Resp B/P (MAP) Pulse Ox O2 Delivery O2 Flow Rate FiO2 03/19/25 01:47 98.5 61 18 171/75 (107) 98 98.5 03/18/25 21:25 58 16 156/92 (113) 98 03/18/25 19:03 67 03/18/25 18:53 99.5 85 20 175/102 98 99.5 Lab Test 03/18/25 21:22 03/18/25 20:15 03/18/25 19:48 Range/Units White Blood Count 5.2 4.4-10.8 10^3/uL Red Blood Count 4.64 4.0-5.20 10^6/uL Hemoglobin 13.0 12.2-16.2 g/dL Hematocrit 39.4 36.0-46.0 % Mean Corpuscular Volume 84.9 80.0-100.0 fL Mean Corpuscular Hemoglobin 28.0 28.0-32.0 pg Mean Corpuscular Hemoglobin Concent 33.0 32.0-36.0 g/dL Red Cell Distribution Width 16.2 H 11.8-14.3 % Platelet Count 323 140-450 10^3/uL Mean Platelet Volume 7.6 6.9-10.8 fL Neutrophils (%) (Auto) 59.9 37.0-80.0 % Lymphocytes (%) (Auto) 29.7 10.0-50.0 % Monocytes (%) (Auto) 5.7 0.0-12.0 % Eosinophils (%) (Auto) 4.3 0.0-7.0 % Basophils (%) (Auto) 0.4 0.0-2.0 % Neutrophils # (Auto) 3.1 1.6-8.6 10 ^3/uL Lymphocytes # (Auto) 1.6 0.4-5.4 10 ^3/uL Monocytes # (Auto) 0.3 0-1.3 10 ^3/uL Eosinophils # (Auto) 0.2 0-0.8 10 ^3/uL Basophils # (Auto) 0 0-0.2 10 ^3/uL Nucleated Red Blood Cells 0.1 % Urine Color Light-yellow Yellow Urine Clarity Clear Clear Urine pH 6.0 5.0-9.0 Urine Specific [place] 1.008 1.001-1.035 Urine Protein Negative Negative Urine Ketones Negative Negative Urine Blood Negative Negative /uL Urine Nitrite Negative Negative Urine Bilirubin Negative Negative Urine Urobilinogen Normal Negative mg/dL Urine Leukocyte Esterase Negative Negative /uL Urine RBC None seen 0 - 4 /hpf Urine Microscopic WBC 1 0-5 /HPF Urine Squamous Epithelial Cells Few <5 /hpf Urine Bacteria None seen None Seen /hpf Urine Glucose Normal Normal mg/dL Troponin I High Sensitivity 7 9 </=34 ng/L Influenza Type A Antigen Negative Negative Influenza Type B Antigen Negative Negative SARS-CoV-2 Antigen (Rapid) Negative NEGATIVE Sodium Level 140 136-145 mmol/L Potassium Level 3.9 3.5-5.1 mmol/L Chloride Level 104 98-107 mmol/L Carbon Dioxide Level 22 20-31 mmol/L Anion Gap 14 5-15 Blood Urea Nitrogen 8 L 9-23 mg/dL Creatinine 0.97 0.550-1.02 mg/dL Glomerular Filtration Rate Calc 62 >90 mL/min BUN/Creatinine Ratio 8.2 L 10.0-20.0 Serum Glucose 114 H 74-106 mg/dL Calcium Level 9.6 8.7-10.4 mg/dL Total Bilirubin 0.4 0.2-1.0 mg/dL Aspartate Amino Transferase (AST) 19 13-40 U/L Alanine Aminotransferase (ALT) 11 7-40 U/L Alkaline Phosphatase 108 46-116 U/L Total Protein 9.1 H 5.7-8.2 g/dL Albumin 4.6 3.2-4.8 g/dL [place] [address] Ph: [phone] DIAGNOSTIC IMAGING Diagnostic Imaging Report : [id number] Signed PATIENT: ROBERT COLESACCT: [id number] UNIT: [id number] : 1955 LOC: ER ROOM / BED: / AGE / SEX: 70 / F ADM STATUS: REG ER SERVICE 17 ORDERING PHYSICIAN: DANII WELDON DO PROCEDURE(s): HWOCT - HEAD WITHOUT CONTRAST REASON: NATARAJAN ORDER NUMBER(s): [id number], ACCESSION NUMBER(s): [id number] EXAM: CT HEAD WITHOUT CONTRAST INDICATION: NATARAJAN TECHNIQUE: CT of the head without intravenous contrast. Radiation Dose : 1. Head: CT Dose: CTDI volume is 51.89 mGy. Dose-length product is 935.65 mGy*cm The dose indicators for CT are the volume Computed Tomography (CT) Dose Index (CTDIvol) and the Dose Length Product (DLP), and are measured in units of mGy and mGy-cm, respectively. These indicators are not patient dose, but values generated from the CT scanner acquisition factors. The report includes radiation exposure data for exposures received during this examination. COMPARISON: CT HEAD WITHOUT CONTRAST on DOS: 06/25/23 FINDINGS: Evaluation is mildly degraded by motion and streak artifact. No acute territorial infarct, intracranial hemorrhage, or mass effect. There are global involutional changes with compensatory prominence of the ventricles and sulci. Patchy periventricular and subcortical white matter hypoattenuation is nonspecific but may be related to small vessel ischemic disease. The orbits are normal. The paranasal sinuses and mastoid air cells are clear. The osseous structures are unremarkable. IMPRESSION: 1. No acute territorial infarct, intracranial hemorrhage, or mass effect. 2. Age-related involutional changes. Chronic microvascular changes. 3. If clinical symptoms persist, MRI may be beneficial in further evaluation. Radiation optimization: All CT scans at this facility use at least one of these dose optimization techniques: automated exposure control mA and/or kV adjustment per patient size (includes targeted exams where dose is matched to clinical indication) or iterative reconstruction. ATED BY: RODGER LISA MD DICTATED DATE/TIME: 03/18/251956 SIGNED BY: RODGER LISA MD SIGNED DATE/TIME: 03/18/251956 CC: [place] [address] Ph: [phone] DIAGNOSTIC IMAGING Diagnostic Imaging Report : [id number] Signed PATIENT: ROBERT COLESACCT: [id number] UNIT: [id number] : 1955 LOC: ER ROOM / BED: / AGE / SEX: 70 / F ADM STATUS: REG ER SERVICE 17 ORDERING PHYSICIAN: DANII WELDON DO PROCEDURE(s): CXRP - CHEST PORTABLE REASON: body aches ORDER NUMBER(s): [id number], ACCESSION NUMBER(s): [id number] CHEST RADIOGRAPH REASON FOR EXAM: body aches COMPARISON: XY CHEST PORTABLE on DOS: 12/01/22, CHEST WITHOUT CONTRAST on DOS: 01/04/22, CXRP on DOS: 01/01/22, CHEST PORTABLE on DOS: 01/01/22 TECHNIQUE: One view of the chest is provided FINDINGS: The cardiomediastinal silhouette is stable. There is aortic atherosclerosis. There is elevation of the right hemidiaphragm, unchanged. There is platelike atelectasis at the right lung base. No other focal airspace disease is identified. There is no significant pleural effusion. There is no pneumo thorax. No acute osseous abnormality is identified. IMPRESSION: Platelike atelectasis of the right lung base. No other focal airspace disease is identified. Persistent elevation of the right hemidiaphragm. ATED BY: PORTER ABRAMS MD DICTATED DATE/TIME: 03/18/252004 SIGNED BY: PORTER ABRAMS MD SIGNED DATE/TIME: 03/18/252004 CC: Time of 1ST Reevaluation: 21:30 Reevaluation 1ST: Unchanged Patient Education/Counseling: Diagnosis, Treatment Family Education/Counseling: Diagnosis, Treatment Comments MDM: patient presented with the above HPI.--multiple complaints of headache side pains-and body aches---workup was initiated. patient was found with the above mentioned diagnosis. the following medications were ordered: please refer to order lists of meds and tests obtained by myself Dr. Weldon. Patient ED course and VS have been stabilized. Patient has been reassessed in the ED and remained in a stable condition. Pertinent incidental findings were discussed with the patient and/or family. Patient/family voices understanding and is agreeable with plan. Patient has been observed in the ED adequate length of time to insure improvement/stability. Escalation of care considered: Consideration of escalation to observation or admission Patient was DISCHARGED home in a stable condition. All the reports of any imaging studies that were ordered by myself were reviewed by myself. Departure 1 Departure Time of Disposition: 01:00 Impression: Primary Impression: Body aches Additional Impression: Headache Disposition: HOME / SELF CARE / HOMELESS Condition: Stable Additional Instructions: Additional instructions: Please read all instructions provided in this packet carefully. You MUST follow-up with your primary care/family doctor in 1 to 2 days. If you are unable to see your primary care/family doctor, please return to our emergency room for re-assessment and re-evaluation in 1 to 2 days. Return to the emergency room here in our facility or to the nearest ER [facility] if your symptoms change or worsen. CONSULTATIONS: you MUST Follow-up for consultation as soon as possible with: Dr.-cardiology and gastroenterology and urology and OB Gyne doctor as needed in 1-2 days. Please call for appointment You MUST call the consultants office yourself to make an appointment. You may need to arrange that through your insurance and/or your primary/family doctor. If you are unable to see the as400 consultant in 1 to 2 days, you must return to our emergency room (or any other ER of your choice) for re-assessment and re- evaluation. Adequate fluid hydration. Although you have been discharged from the Emergency Department, this does not mean that you have a "clean bill of health". No definitive diagnosis for your symptoms has been made today. It is possible that you are in the process of developing a serious illness. This is why you must return to the ED without fail if any new or worsening symptoms develop. Below is a copy of your radiological report for follow up: [place] [address] Ph: [phone] DIAGNOSTIC IMAGING Diagnostic Imaging Report : [id number] Signed PATIENT: ROBERT COLES ACCT: [id number] UNIT: [id number] : 1955 LOC: ER ROOM / BED: / AGE / SEX: 70 / F ADM STATUS: REG ER SERVICE 17 ORDERING PHYSICIAN: DANII WELDON DO PROCEDURE(s): HWOCT - HEAD WITHOUT CONTRAST REASON: NATARAJAN ORDER NUMBER(s): [id number], ACCESSION NUMBER(s): [id number] EXAM: CT HEAD WITHOUT CONTRAST INDICATION: NATARAJAN TECHNIQUE: CT of the head without intravenous contrast. Radiation Dose : 1. Head: CT Dose: CTDI volume is 51.89 mGy. Dose-length product is 935.65 mGy*cm The dose indicators for CT are the volume Computed Tomography (CT) Dose Index (CTDIvol) and the Dose Length Product (DLP), and are measured in units of mGy and mGy-cm, respectively. These indicators are not patient dose, but values generated from the CT scanner acquisition factors. The report includes radiation exposure data for exposures received during this examination. COMPARISON: CT HEAD WITHOUT CONTRAST on DOS: 06/25/23 FINDINGS: Evaluation is mildly degraded by motion and streak artifact. No acute territorial infarct, intracranial hemorrhage, or mass effect. There are global involutional changes with compensatory prominence of the ventricles and sulci. Patchy periventricular and subcortical white matter hypoattenuation is nonspecific but may be related to small vessel ischemic disease. The orbits are normal. The paranasal sinuses and mastoid air cells are clear. The osseous structures are unremarkable. IMPRESSION: 1. No acute territorial infarct, intracranial hemorrhage, or mass effect. 2. Age-related involutional changes. Chronic microvascular changes. 3. If clinical symptoms persist, MRI may be beneficial in further evaluation. Radiation optimization: All CT scans at this facility use at least one of these dose optimization techniques: automated exposure control mA and/or kV adjustment per patient size (includes targeted exams where dose is matched to clinical indication) or iterative reconstruction. ATED BY: RODGER LISA MD DICTATED DATE/TIME: 03/18/251956 SIGNED BY: RODGER LISA MD SIGNED DATE/TIME: 03/18/251956 CC: [place] [address] Ph: [phone] DIAGNOSTIC IMAGING Diagnostic Imaging Report : [id number] Signed PATIENT: ROBERT COLES ACCT: [id number] UNIT: [id number] : 1955 LOC: ER ROOM / BED: / AGE / SEX: 70 / F ADM STATUS: REG ER SERVICE 17 ORDERING PHYSICIAN: DANII WELDON DO PROCEDURE(s): CXRP - CHEST PORTABLE REASON: body aches ORDER NUMBER(s): [id number], ACCESSION NUMBER(s): [id number] CHEST RADIOGRAPH REASON FOR EXAM: body aches COMPARISON: XY CHEST PORTABLE on DOS: 12/01/22, CHEST WITHOUT CONTRAST on DOS: 01/04/22, CXRP on DOS: 01/01/22, CHEST PORTABLE on DOS: 01/01/22 TECHNIQUE: One view of the chest is provided FINDINGS: The cardiomediastinal silhouette is stable. There is aortic atherosclerosis. There is elevation of the right hemidiaphragm, unchanged. There is platelike atelectasis at the right lung base. No other focal airspace disease is identified. There is no significant pleural effusion. There is no pneumothorax. No acute osseous abnormality is identified. IMPRESSION: Platelike atelectasis of the right lung base. No other focal airspace disease is identified. Persistent elevation of the right hemidiaphragm. ATED BY: PORTER ABRAMS MD DICTATED DATE/TIME: 03/18/252004 SIGNED BY: PORTER ABRAMS MD SIGNED DATE/TIME: 03/18/252004 [place] [address] Ph: [phone] DIAGNOSTIC IMAGING Diagnostic Imaging Report : [id number] Signed PATIENT: ROBERT COLES ACCT: [id number] UNIT: [id number] : 1955 LOC: ER ROOM / BED: / AGE / SEX: 70 / F ADM STATUS: REG ER SERVICE [id number] ORDERING PHYSICIAN: DANII WELDON DO PROCEDURE(s): ABPL - CT AB PEL WO CON-NO ORAL OR IV REASON: pain ORDER NUMBER(s): [id number], ACCESSION NUMBER(s): [id number] Exam: CT CT AB PEL WO CON-NO ORAL OR IV History: Abdominal pain Comparison Study: ECIDC on DOS: 01/02/22, ECIDC on DOS: 01/02/22 TECHNIQUE: Multidetector CT of the abdomen and pelvis was performed from lung bases to pubic symphysis. Imaging was performed without IV contrast. Axial, coronal, and sagittal multiplanar reformats were obtained from the axial data set by the technologist. RADIATION DOSE: CTDI vol 20.38 mGy. DLP 1163.27 mGy.cm Findings: Lungs: The lung bases are clear. Liver: Unremarkable. 2.3 cm cystic perihepatic lesion. Spleen: Unremarkable. Pancreas: Unremarkable. Gallbladder: Prior cholecystectomy. Adrenals: Unremarkable Kidneys: Unremarkable. Pelvic Viscera: The uterus is not visualized and may be surgically absent. Vasculature: Mild atherosclerotic vascular calcifications. Retroperitoneum: Unremarkable. Bowel: No bowel obstruction. Postsurgical changes of the stomach. Portions of the bowel are decompressed, limiting assessment. Musculoskeletal: Grade 1 anterolisthesis of L4 on L5. Soft tissues: Unremarkable Impression: 1. No acute abdominopelvic abnormality identified. 2. Incidental findings as detailed. ATED BY: RODGER LISA MD DICTATED DATE/TIME: 03/19/2554 SIGNED BY: RODGER LISA MD SIGNED DATE/TIME: 03/19/2554 CC: Discharged With: Self, Relative Critical Care Note Critical Care Time?: No I personally scribed for DANII WELDON DO ([email or web address]) on 03/18/25 at 21:13. Electronically submitted by Monserrat Huynh ([email or web address]). DANII WELDON DO Mar 18, 2025 21:13
[2025-03-18 21:24] LABS: COVID19 ANTIGEN SOFIA FIA NEGATIVE (NEGATIVE)
[2025-03-18 21:51] LABS: Hematocrit 39.4 % (36.0-46.0); Hemoglobin 13.0 g/dL (12.2-16.2); Mean Corpuscular Hemoglobin 28.0 pg (28.0-32.0); Mean Corpuscular Volume 84.9 fL (80.0-100.0); Nucleated Red Blood Cells % 0.1 %
[2025-03-18 23:32] LABS: Urine Protein, UAD Negative (Negative)
--- NOTE | 2025-03-19 00:58 | DVH ---
Exam: CT CT AB PEL WO CON-NO ORAL OR IV History: Abdominal pain Comparison Study: ECIDC on DOS: 01/02/22, ECIDC on DOS: 01/02/22 TECHNIQUE: Multidetector CT of the abdomen and pelvis was performed from lung bases to pubic symphysi s. Imaging was performed without IV contrast. Axial, coronal, and sagittal multiplanar reformats were obtained from the axial data set by the technologist. RADIATION DOSE: CTDI vol 20.38 mGy. DLP 1163.27 mGy.cm Findings: Lungs: The lung bases are clear. Liver: Unremarkable. 2.3 cm cystic perihepatic lesion. Spleen: Unremarkable. Pancreas: Unremarkable. Gallbladder: Prior cholecystectomy. Adrenals: Unremarkable Kidneys: Unremarkable. Pelvic Viscera: The uterus is not visualized and may be surgically absent. Vasculature: Mild atherosclerotic vascular calcifications. Retroperitoneum: Unremarkable. Bowel: No bowel obstruction. Postsurgical changes of the stomach. Portions of the bowel are decompres sed, limiting assessment. Musculoskeletal: Grade 1 anterolisthesis of L4 on L5. Soft tissues: Unremarkable Impression: 1. No acute abdominopelvic abnormality identified. 2. Incidental findings as detailed.
[2025-03-19 01:47] VITALS: BP 171/75; PULSE 61; RESP 18; TEMP 98.5; O2SAT 98
--- NOTE | 2025-03-19 06:22 | ECG ---
[facility] Test Date: 2025-03-18 Test Time: 19:03:52 Pat Name: ROBERT COLES Department: ED Room: Gender: F Gardening Supervisor: abisai : 1955 Requested By: EMERGENCY EMERGENCY Order Number: [id number] Reading MD: Measurements Intervals [place] Rate: 67 P: 68 KS: 146 QRS: 69 QRSD: 85 T: 66 QT: 396 QTc: 418 Interpretive Statements Sinus rhythm Low voltage, precordial leads Probable anteroseptal infarct, old Please click the below link to view image of tracing.
== END 2025-03-19 01:50 | disposition home or self-care (01) ==
LOC: ER 18:51
DX: R51.9 Headache, unspecified (principal); R19.7 Diarrhea, unspecified; R10.9 Unspecified abdominal pain; M54.50 Low back pain, unspecified; F12.90 Cannabis use, unspecified, uncomplicated; Z79.890 Hormone replacement therapy; Z98.84 Bariatric surgery status; Z79.899 Other long term (current) drug therapy; Z20.822 Contact with and (suspected) exposure to COVID-19
CPT/HCPCS: 36415; 70450; 71045; 74176; 80053; 81001; 84484; 87426; 87804; 93005

== ENCOUNTER 2025-06-01 07:24 | Inpatient (IN) | payer BC, OTHER ==
[~2025-06-01] VITALS: Ht 167.6 cm; Wt 88.1 kg
[2025-06-01 07:52] VITALS: PULSE 116; RESP 20; O2SAT 94
--- NOTE | 2025-06-01 08:01 | ED.PDOC ---
GI ASSESSMENT HPI Comments 70 year old female with PMHx HLD, CVA, [place], thyroid disease presents to the ED with a chief complaint of nausea/vomiting onset 5 days. Patient states she has been experiencing diffused abdominal pain as well as nausea, vomiting, dysuria, chills. She has experienced similar symptoms in the past, was diagnosed with UTI. Last marijuana use was last night. Denies hematemesis, chest pain, dizziness, headache, melena, constipation, shortness of breath, fever. No other symptoms or modifying factors present at this time. Chief Complaint: Nausea/Vomiting Time Seen by MD: 07:45 Primary Care Provider: DANTE Reviewed Notes: Medications, Allergies Allergies: Coded Allergies: Prochlorperazine (Verified Allergy, Unknown, 01/01/22) Home Meds Active Scripts Sulfamethoxazole W/Trimethopri (Bactrim Ds Tablet) 1 Tab Tb, 1 TAB PO BID, #10 TAB Prov:LITO OHARA MD 12/04/22 Docusate Sodium (Colace) 100 Mg Cap, 100 MG PO DAILY PRN MDD Constipation, #30 MG Prov:LITO OHARA MD 12/04/22 Ferrous Sulfate (Ferrous Sulfate) 325 Mg Tab, 325 MG PO TIDWMEALS, #90 MG Prov:LITO OHARA MD 12/04/22 Pantoprazole Sodium Sesquihydr (Protonix) 40 Mg Tab, 40 MG PO BID, #60 TAB Prov:LITO OHARA MD 01/05/22 Reported Medications Pregabalin (Pregabalin) 100 Mg Cap, 1 CAP PO TID 12/02/22 Eszopiclone (Lunesta) 2 Mg Tab, 1 TAB PO QHSP PRN for INSOMNIA 12/02/22 Levothyroxine Sodium (Levothyroxine Sodium) 25 Mcg Tab, 1 TAB PO DAILY 12/02/22 Mirtazapine (REMERON) 30 Mg Tab, 1 TAB PO 12/02/22 Olanzapine (Zyprexa) 10 Mg Tab, 1 TAB PO 12/02/22 Information Source: Patient Mode of Arrival: Ambulatory Timing: Days Duration: Since onset Prehospital treatment: None Quality: Sharp Severity: Moderate Recent: None Recent Hx of: None Pain Location: Diffuse Modifying Factors: Nothing Associated sign and symptoms: Nausea, Vomiting, Abdominal Pain Past Medical History PAST MEDICAL HISTORY: CVA, High Lip[place], [place], Thyroid Surgical History: Cholecystectomy, Hysterectomy Surgical History (Other): gastric bypass STOCK BROKER History: Denies all STOCK BROKER Hx Family History Family History: Reviewed,noncontributory to illness Social History Smoker: Non-Smoker Alcohol: Occasionally Drugs: Marijuana Lives In: Home Constitutional: reports: chills; denies: diaphoresis, fatigue, fever, malaise, sweats, weakness, others EENTM: denies: blurred vision, double vision, ear bleeding, ear discharge, ear drainage, ear pain, ear ringing, eye pain, eye redness, hearing loss, mouth pain, mouth swelling, nasal discharge, nose bleeding, nose congestion, nose pain, photophobia, tearing, throat pain, throat swelling, voice changes, others Respiratory: denies: cough, hemoptysis, orthopnea, SOB at rest, shortness of breath, SOB with excertion, stridor, wheezing, others Cardiovascular: denies: chest pain, dizzy spells, diaphoresis, Dyspnea on exertion, edema, irregular heart beat, left arm pain, lightheadedness, palpitations, PND, syncope, others Gastrointestinal: reports: abdominal pain, nausea, vomiting; denies: abdomen distended, blood streaked bowels, constipated, diarrhea, dysphagia, difficulty swallowing, hematemesis, melena, poor appetite, poor fluid intake, rectal bleeding, rectal pain, others Genitourinary: reports: dysuria; denies: abnormal vagina bleeding, burning, dy spareunia, flank pain, frequency, hematuria, incontinence, pain, , vagina discharge, urgency, others Neurological: denies: dizziness, fainting, headache, left sided numbness, left sided weakness, numbness, paresthesia, pre-existing deficit, right sided numbness, right sided weakness, seizure, speech problems, tingling, tremors, weakness, others Musculoskeletal: denies: back pain, gout, joint pain, joint swelling, muscle pain, muscle stiffness, neck pain, others Integumetry: denies: bruises, change in color, change in hair/nails, dryness, laceration, lesions, lumps, rash, wounds, others Allergic/Immunocompromised: denies: Difficulty Healing, Frequent Infections, Hi ves, Itching, others Hematologic/Lymphatic: denies: anemia, blood clots, easy bleeding, easy bruising, swollen glands, others Endocrine: denies: excessive hunger, excessive sweating, excessive thirst, excessive urination, flushing, intolerance to cold, intolerance to heat, unexplained weight gain, unexplained weight loss, others Psychiatric: denies: anxiety, bipolar disorder, depression, hopeless, panic disorder, schizophrenia, sleepless, suicidal, others All Other Systems: Reviewed and Negative Physical Exam General Appearance: Moderate Distress HEENT: Normal ENT Inspection, Pharynx Normal, TMs Normal Neck: Full Range of Motion, Non-Tender, Normal, Normal Inspection Respiratory: Chest Non-Tender, Lungs Clear, No Accessory Muscle Use, No Respiratory Distress, Normal Breath Sounds Cardiovascular: No Edema, No JVD, No Murmur, No Gallop, Tachycardia Breast Exam: Deferred Gastrointestinal: Diffuse, No Organomegaly, No Pulsatile Mass, Normal Bowel Sounds, Soft, Tenderness Genitalia: Deferred Pelvic: Deferred Rectal: Deferred Extremities: No calf tenderness, Normal capillary refill, Normal inspection, Normal range of motion, Non-tender, No pedal edema Musculoskeletal : Apperance: Normal Neurologic: Alert, automatic bow maker machine tender II-XII nml as Tested, No Motor Deficits, Normal Affect, Normal Mood, No Sensory Deficits Cerebellar Function: Normal Reflexes: Normal Skin: Dry, Normal Color, Warm Lymphatic: No Adenopathy EKG EKG : Pulse Rate (adult): 126 Cardiac Rhythm: ST Comments low voltage Was a procedure done? Was a procedure done?: No GI differential Dx Differential Diagnosis: Gastritis/PUD, Gastroenteritis, Inflammatory BD, Pancreatitis, UTI, Electrolyte Imbalance, Food Poisoning X-Ray, Labs, Meds, VS Vital Signs Date Time Temp Pulse Resp B/P (MAP) Pulse Ox O2 Delivery O2 Flow Rate FiO2 06/01/25 08:27 111 06/01/25 08:01 126 06/01/25 07:52 99.1 118 20 127/88 (101) 94 99.1 06/01/25 07:52 116 20 94 Room Air* 0 21 06/01/25 07:37 126 06/01/25 07:27 97.9 129 18 127/91 97 97.9 Lab Test 06/01/25 07:57 Range/Units White Blood Count 10.2 4.4-10.8 10^3/uL Red Blood Count 4.99 4.0-5.20 10^6/uL Hemoglobin 14.0 12.2-16.2 g/dL Hematocrit 43.1 36.0-46.0 % Mean Corpuscular Volume 86.4 80.0-100.0 fL Mean Corpuscular Hemoglobin 28.1 28.0-32.0 pg Mean Corpuscular Hemoglobin Concent 32.6 32.0-36.0 g/dL Red Cell Distribution Width 16.3 H 11.8-14.3 % Platelet Count 435 140-450 10^3/uL Mean Platelet Volume 8.0 6.9-10.8 fL Neutrophils (%) (Auto) 84.8 H 37.0-80.0 % Lymphocytes (%) (Auto) 10.0 10.0-50.0 % Monocytes (%) (Auto) 4.8 0.0-12.0 % Eosinophils (%) (Auto) 0.0 0.0-7.0 % Basophils (%) (Auto) 0.4 0.0-2.0 % Neutrophils # (Auto) 8.7 H 1.6-8.6 10 ^3/uL Lymphocytes # (Auto) 1.0 0.4-5.4 10 ^3/uL Monocytes # (Auto) 0.5 0-1.3 10 ^3/uL Eosinophils # (Auto) 0 0-0.8 10 ^3/uL Basophils # (Auto) 0 0-0.2 10 ^3/uL Nucleated Red Blood Cells 0.1 % Sodium Level 149 H 136-145 mmol/L Potassium Level 3.0 L 3.5-5.1 mmol/L Chloride Level 103 98-107 mmol/L Carbon Dioxide Level 25 20-31 mmol/L Anion Gap 21 H 5-15 Blood Urea Nitrogen 29 H 9-23 mg/dL Creatinine 2.40 H 0.550-1.02 mg/dL Glomerular Filtration Rate Calc 21 >90 mL/min BUN/Creatinine Ratio 12.1 10.0-20.0 Serum Glucose 168 H 74-106 mg/dL Calcium Level 10.7 H 8.7-10.4 mg/dL Total Bilirubin 0.6 0.2-1.0 mg/dL Aspartate Amino Transferase (AST) 29 13-40 U/L Alanine Aminotransferase (ALT) 14 7-40 U/L Alkaline Phosphatase 102 46-116 U/L Total Protein 10.0 H 5.7-8.2 g/dL Albumin 5.1 H 3.2-4.8 g/dL Lipase 28 12-53 U/L IV Hep-Lock was established The patient is being signed out to Dr. Zuñiga The patient's BUN is 29 the creatinine is 2.4 The patient was given Zofran 4 mg IV push for the nausea The CBC is within normal limits. The glucose is 168 Images Reviewed?: Images reviewed and evaluated by me Time of 1ST Reevaluation: 08:15 Reevaluation 1ST: Unchanged Patient Education/Counseling: Diagnosis, Treatment, Prognosis Family Education/Counseling: No Family Present SEPSIS Sepsis Screen Date sepsis recognized/suspect: Jun 01, 2025 Time Sepsis recognized/suspect: 729 Recent Procedure: No On Antibiotic Therapy: No Respiratory Rate >20: No Heart Rate >90: Yes Temp<36 C (96.8 F) or >38.3 C: No SBP <90 or MAP <65 mmHG: No New Acute Mental Status Change: No Is the patient on CPAP, BIPAP,: No Physician Orders Electrocardigram (06/01/25 07:34) Urinalysis (06/01/25 07:45) Ct Ab Pel Wo Con-No Oral Or Iv (06/01/25 07:45) Heplock Iv (06/01/25 07:45) Vital Signs Date Time Temp Pulse Resp B/P (MAP) Pulse Ox O2 Delivery O2 Flow Rate FiO2 06/01/25 08:27 111 06/01/25 08:01 126 06/01/25 07:52 99.1 118 20 127/88 (101) 94 99.1 06/01/25 07:52 116 20 94 Room Air* 0 21 06/01/25 07:37 126 06/01/25 07:27 97.9 129 18 127/91 97 97.9 Laboratory Tests Test 06/01/25 07:57 White Blood Count 10.2 10^3/uL (4.4-10.8) Departure 1 Departure Time of Disposition: 09:16 Impression: Primary Impression: Intractable abdominal pain Additional Impression: Intractable vomiting Disposition: ADMITTED INPATIENT Admit to: Med Surg Condition: Fair Critical Care Note Critical Care Time?: No Stability Stability form required: Yes Unstable for transfer: ED Physician Assesment (Clinical assesment) Heart Score Heart Score: Heart Score Response (Comments) Value History N/A 0 EKG N/A 0 Age N/A 0 Risk Factors N/A 0 Troponin N/A 0 Total 0 I personally scribed for JAYLEEN JACOB MD ([email or web address]) on 06/01/25 at 08:01. Electronically submitted by Monserrat Huynh ([email or web address]). JAYLEEN JACOB MD Jun 01, 2025 08:01
[2025-06-01 08:15] LABS: Hematocrit 43.1 % (36.0-46.0); Hemoglobin 14.0 g/dL (12.2-16.2); Mean Corpuscular Hemoglobin 28.1 pg (28.0-32.0); Mean Corpuscular Volume 86.4 fL (80.0-100.0); Nucleated Red Blood Cells % 0.1 %
[2025-06-01 08:22] LABS: Alanine Aminotransferase 14 U/L (7-40); Alkaline Phosphatase 102 U/L (46-116); Anion Gap 21 (5-15); BUN/Creatinine Ratio 12.1 (10.0-20.0); Carbon Dioxide 25 mmol/L (20-31); Chloride 103 mmol/L (98-107)
[2025-06-01 08:23] LABS: Albumin 5.1 g/dL (3.2-4.8); Bilirubin, Total 0.6 mg/dL (0.2-1.0); Blood Urea Nitrogen 29 mg/dL (9-23); Calcium 10.7 mg/dL (8.7-10.4); Glucose 168 mg/dL (74-106); Potassium 3.0 mmol/L (3.5-5.1); Sodium 149 mmol/L (136-145); Total Protein 10.0 g/dL (5.7-8.2)
[2025-06-01 09:07] LABS: Lipase 28 U/L (12-53)
[2025-06-01] MEDS: PANTOPRAZOLE 40 MG/10 ML VIAL INJ IV ONE (09:51)
[2025-06-01] MEDS: ONDANSETRON HCL 4 MG/2 ML VIAL IV ONE ×2 (09:51→11:21)
[2025-06-01] MEDS: SODIUM CHLORIDE 0.9% 500 ML IVB ONE (09:53)
--- NOTE | 2025-06-01 09:59 | DVH ---
Exam: CT CT AB PEL WO CON-NO ORAL OR IV History: Pain. Comparison Study: CT CT AB PEL WO CON-NO ORAL OR IV on DOS: 03/18/25, [facility] on DOS: 01/02/22, [facility] on DOS: 01/02/22 Technique: Multidetector spiral CT of the abdomen and pelvis was performed from lung bases to pubic symphysis. Imaging was performed without intravenous contrast. Coronal and sagittal multiplanar reformats were obtained from the axial data set by the technologist. Radiation Dose : 1. Abdomen/Pelvis: CTDIvol 10.78 mGy, DLP 606.1 mGy*cm. Findings: Evaluation of vasculature and solid organs is limited due to lack of intravenous contrast use. Lung Bases: Lung bases are clear. Visualized portions of the heart and pericardium are unremarkable. Liver: The liver is normal in size. No focal lesions. Gallbladder and Biliary Tree: The gallbladder is surgically absent. No intrahepatic or extrahepatic biliary ductal dilatation. Spleen: Unremarkable Pancreas: There is peripancreatic fat stranding. No fluid collection. Adrenal Glands: Unremarkable Kidneys: Kidneys are unremarkable without calculi or hydronephrosis. GI tract: There are postsurgical changes from prior gastric bypass surgery. Visualized portions of the stomach are unremarkable. No small bowel dilatation or mucosal thickening. Colon is underdistended. No findings to suggest acute appendicitis. Peritoneum/mesentery/retroperitoneum. No evidence of free intraperitoneal air. No ascites. No evidence of suspicious lymphadenopathy. Abdominal Wall: Unremarkable. Vasculature: The visualized abdominal aorta is normal in size and caliber. Evaluation of abdominal and pelvic vessels is limited due to lack of intravenous contrast. Urinary Bladder: Grossly unremarkable for degree of distention. Pelvic Organs: Unremarkable Musculoskeletal: No aggressive focal bony lesions, acute fractures or dislocation. There is grade 1 anterolisthesis at L4-L5. IMPRESSION: 1. Peripancreatic fat stranding which may represent acute pancreatitis. Correlation with pancreatic laboratory values is recommended. No fluid collection. 2. Postsurgical changes from prior gastric bypass surgery.
[2025-06-01] MEDS: fentaNYL CITRATE 100 MCG/2 ML VL IV ONE (11:22)
[2025-06-01] MEDS ORDERED: DEXTROSE (50%) 50ML SYRG IV PRN (12:15)
--- NOTE | 2025-06-01 12:36 | DVHHPRES ---
History of Present Illness Resident Creating Document: MAYTEAIXAKOLBY RESIDENT History of Present Illness Patient is a 70-year-old female with a medical history of GERD, depression, bipolar disorder, hypothyroidism, hypothyroidism gastric bypass in 1982, insomnia presented to the ED with a chief complaint of intractable nausea vomiting for 1 week. Patient reported she started to have nausea and subsequent vomiting last week on Sunday which was gradually progressive, initially she was able to tolerate a liquid and since she has not been able to keep anything down. Denied vomiting any bright red blood, reports vomiting dark brown flecks. She also reported of associated abdominal pain in the left upper quadrant and in the epigastric area and reported of chest pain when she vomited and a sensation of food getting stuck in the chest when she swallowed. Denied any fever or chills, no food intake outside of normal prior to illness. Patient reports since she got the gastric bypass surgery she has had episodes of intractable nausea or vomiting every 2-3 years. The last time she was hospitalized because of intractable nausea vomiting was about 3 years ago when she underwent EGD in this facility because at the time she had coffee-ground emesis and melena which showed gastritis, gastric polyps from 35-40 cm. Patient reports that she changed insurance and has not been taking her medications for about 2 years. Medical history: As per HPI Surgical history: Gastric bypass surgery, cholecystectomy, hysterectomy Social history: Patient denies smoking, alcohol, drug use Home medications: Was taking olanzapine, mirtazapine, Ambien but since her insurance if she has not been taking medications for about 2 years Review of Systems Review of Systems Reports mild nausea Last vomiting was in the morning today which was watery without any blood Allergies: Coded Allergies: Prochlorperazine (Verified Allergy, Unknown, 01/01/22) Exam Vital Signs Vital Signs Date Time Temp Pulse Resp B/P (MAP) Pulse Ox O2 Delivery O2 Flow Rate FiO2 06/01/25 11:22 141/98 06/01/25 08:27 111 06/01/25 07:52 99.1 20 94 99.1 06/01/25 07:52 Room Air* 0 21 Exam Skin - Patients skin is warm and dry. HEENT - normocephalic, atraumatic, moist mucous membranes, no pallor or icterus Neck - full ROM, no LAD, no JVD Pulmonary - B/L clear breath sounds without any rales or wheezing cardiovascular - regular S1,S2 heard, no added sounds, no murmurs heard. GI - soft abdomen with tenderness to palpation in the epigastrium, left upper quadrant and mild tenderness in the right upper quadrant. no hepatospleenomegaly. Bowel sounds hypoactive Neurological - Patient is A/O X 4. Bilateral upper extremity strength 5/5, bilateral lower extremity strength 5/5, no facial droop, normal speech, no tremor, no sensory deficiets. Labs/Xrays Labs Test 06/01/25 07:57 Range/Units White Blood Count 10.2 4.4-10.8 10^3/uL Red Blood Count 4.99 4.0-5.20 10^6/uL Hemoglobin 14.0 12.2-16.2 g/dL Hematocrit 43.1 36.0-46.0 % Mean Corpuscular Volume 86.4 80.0-100.0 fL Mean Corpuscular Hemoglobin 28.1 28.0-32.0 pg Mean Corpuscular Hemoglobin Concent 32.6 32.0-36.0 g/dL Red Cell Distribution Width 16.3 H 11.8-14.3 % Platelet Count 435 140-450 10^3/uL Mean Platelet Volume 8.0 6.9-10.8 fL Neutrophils (%) (Auto) 84.8 H 37.0-80.0 % Lymphocytes (%) (Auto) 10.0 10.0-50.0 % Monocytes (%) (Auto) 4.8 0.0-12.0 % Eosinophils (%) (Auto) 0.0 0.0-7.0 % Basophils (%) (Auto) 0.4 0.0-2.0 % Neutrophils # (Auto) 8.7 H 1.6-8.6 10 ^3/uL Lymphocytes # (Auto) 1.0 0.4-5.4 10 ^3/uL Monocytes # (Auto) 0.5 0-1.3 10 ^3/uL Eosinophils # (Auto) 0 0-0.8 10 ^3/uL Basophils # (Auto) 0 0-0.2 10 ^3/uL Nucleated Red Blood Cells 0.1 % Sodium Level 149 H 136-145 mmol/L Potassium Level 3.0 L 3.5-5.1 mmol/L Chloride Level 103 98-107 mmol/L Carbon Dioxide Level 25 20-31 mmol/L Anion Gap 21 H 5-15 Blood Urea Nitrogen 29 H 9-23 mg/dL Creatinine 2.40 H 0.550-1.02 mg/dL Glomerular Filtration Rate Calc 21 >90 mL/min BUN/Creatinine Ratio 12.1 10.0-20.0 Serum Glucose 168 H 74-106 mg/dL Calcium Level 10.7 H 8.7-10.4 mg/dL Total Bilirubin 0.6 0.2-1.0 mg/dL Aspartate Amino Transferase (AST) 29 13-40 U/L Alanine Aminotransferase (ALT) 14 7-40 U/L Alkaline Phosphatase 102 46-116 U/L Total Protein 10.0 H 5.7-8.2 g/dL Albumin 5.1 H 3.2-4.8 g/dL Lipase 28 12-53 U/L SEPSIS Sepsis Screen Date sepsis recognized/suspect: Jun 01, 2025 Time Sepsis recognized/suspect: 806 Recent Procedure: No On Antibiotic Therapy: No Respiratory Rate >20: No Heart Rate >90: Yes Temp<36 C (96.8 F) or >38.3 C: No SBP <90 or MAP <65 mmHG: No New Acute Mental Status Change: No Is the patient on CPAP, BIPAP,: No Physician Orders Electrocardigram (06/01/25 07:34) Urinalysis (06/01/25 07:45) Ct Ab Pel Wo Con-No Oral Or Iv (06/01/25 07:45) Heplock Iv (06/01/25 07:45) Admit (06/01/25 12:03) Oxygen By Nasal Cannula (06/01/25 12:03) Stat Ekg For Chest Pain (06/01/25 12:03) Notify Md Of Changes From Base (06/01/25 12:03) Jewelry Engraver For 24 Hours (06/01/25 12:03) Emergency Dysrhythmia Protocol (06/01/25 12:03) Npo Except Ice Chips (06/01/25 12:03) Npo (Nothing By Mouth) Diet (06/01/25 Lunch) Lactated Ringer's (06/01/25 12:15) Pantoprazole (Protonix) (06/01/25 22:00) Ondansetron Hcl (Zofran) (06/01/25 12:15) Lactated Ringers Lr (06/01/25 15:00) Glucose Blood (Accu-Chek Comfort Curve T (06/01/25 18:00) Mild Sliding Scale Npo - Q6hr (06/01/25 18:00) Dextrose 50% Syringe (06/01/25 12:15) Urinalysis (06/01/25 12:03) * Gi Dvh Forest Products Teacher (06/01/25 12:03) Kub Abdomen Single View (06/01/25 12:03) Morphine Sulfate Injection (06/01/25 12:15) Electrocardigram (06/01/25 12:03) Basic Metabolic Panel (06/01/25 14:00) Vital Signs Date Time Temp Pulse Resp B/P (MAP) Pulse Ox O2 Delivery O2 Flow Rate FiO2 06/01/25 11:22 141/98 06/01/25 08:27 111 06/01/25 08:01 126 06/01/25 07:52 99.1 118 20 127/88 (101) 94 99.1 06/01/25 07:52 116 20 94 Room Air* 0 21 06/01/25 07:37 126 06/01/25 07:27 97.9 129 18 127/91 97 97.9 Laboratory Tests Test 06/01/25 07:57 White Blood Count 10.2 10^3/uL (4.4-10.8) Medications Medications Dose Ordered Sig/Chela Route Start Time Stop Time Status Last Admin Dose Admin Fentanyl Citrate 12.5 mcg ONCE ONCE IV 06/01/25 11:15 06/01/25 11:16 DC 06/01/25 11:22 12.5 MCG Ondansetron HCl 4 mg ONCE ONCE IV 06/01/25 07:45 06/01/25 07:47 DC 06/01/25 09:51 4 MG Ondansetron HCl 4 mg ONCE ONCE IV 06/01/25 11:15 06/01/25 11:16 DC 06/01/25 11:21 4 MG Pantoprazole Sodium 40 mg ONCE ONCE IV 06/01/25 07:45 06/01/25 07:48 DC 06/01/25 09:51 40 MG Sodium Chloride 500 ml @ 500 mls/hr Q1H ONCE IVB 06/01/25 07:45 11/24/25 08:44 DC 06/01/25 09:53 500 MLS/HR Assessment/Plan Assessment/Plan Acute intractable nausea vomiting Probable acute pancreatitis H/o gastric bypass surgery H/o gastric polyps H/o upper GI bleed Hypernatremia likely due to dehydration LESTER on CKD likely prerenal due to VMN Plan - IV fluids - electrolyte replacement, monitor BMP - GI consult - Zofran as needed for nausea - IV Protonix b.i.d. - ECG pending Goals of care discussed with the patient for over 19 minutes. Full code Time spent: 36 mins Plan discussed with Dr. Rosa Plan discussed with: Patient, Other (RN) My Orders Orders - ALLA HU RESIDENT Procedure Category Date Status Time Admit ADMIT 06/01/25 Transmitted 12:03 Oxygen By Nasal RT 06/01/25 Transmitted Cannula 12:03 Stat Ekg For Chest JOSHUA 06/01/25 Transmitted Pain 12:03 Notify Of Changes JOSHUA 06/01/25 Transmitted From Base 12:03 Jewelry Engraver For JOSHUA 06/01/25 Transmitted 24 Hours 12:03 Emergency Dysrhythmia JOSHUA 06/01/25 Transmitted Protocol 12:03 Npo Except Ice Chips JOSHUA 06/01/25 Transmitted 12:03 Npo (Nothing By DIET 06/01/25 Transmitted Mouth) Diet Lunch Lactated Ringer's PHA 06/01/25 Transmitted 12:15 Pantoprazole PHA 06/01/25 Transmitted (Protonix) 22:00 Ondansetron Hcl PHA 06/01/25 Transmitted (Zofran) 12:15 Lactated Ringers Lr PHA 06/01/25 Transmitted 15:00 Glucose Blood PHA 06/01/25 Transmitted (Accu-Chek Comfort 18:00 Mild Sliding Scale PHA 06/01/25 Transmitted Npo - Q6hr 18:00 Dextrose 50% Syringe PHA 06/01/25 Transmitted 12:15 Urinalysis LAB 06/01/25 Transmitted 12:03 * Gi Dvh [employer] Teacher CONS 06/01/25 Verified 12:03 Kub Abdomen Single XY 06/01/25 Logged View 12:03 Morphine Sulfate PHA 06/01/25 Transmitted Injection 12:15 Electrocardigram EKG 06/01/25 Logged 12:03 Basic Metabolic Panel LAB 06/01/25 Transmitted 14:00 Date of Service: Jun 01, 2025 Billing Provider: NAA ROSA MD Common Visit Codes: [id number] INP/OBS CARE (HIGH) Secondary Visit Codes: [id number] CARE PLAN 30 MINUTES ALLA HU RESIDENT Jun 01, 2025 12:36
--- NOTE | 2025-06-01 13:11 | ECG ---
[facility] Test Date: 2025-06-01 Test Time: 13:10:16 Pat Name: ROBERT COLES Department: ED Room: [facility] Gender: F Bridge Inspector: YASHIRA : 1955 Requested By: JAYLEEN JACOB Order Number: [id number] Reading MD: Naif Sibley Measurements Intervals [place] Rate: 98 P: 46 ID: 114 QRS: 2 QRSD: 91 T: 48 QT: 365 QTc: 467 Interpretive Statements Sinus rhythm Borderline short ID interval Baseline wander in lead(s) III,aVL,aVF,V1,V2,V3,V4,V5,V6 Electronically Signed On 06-03-2025 17:45:43 PST by Naif Sibley Please click the below link to view image of tracing.
--- NOTE | 2025-06-01 13:23 | DVH ---
Date: 06/01/2025 12:33 PM Examination: XY KUB ABDOMEN SINGLE VIEW History: Intractable N/V, rule out obstruction Comparison: None TECHNIQUE: Frontal views of the abdomen was obtained. FINDINGS: Bowel gas pattern is unremarkable. The lung bases are unremarkable. No acute osseous abnormality identified. IMPRESSION: Nonobstructive bowel gas pattern.
[2025-06-01] MEDS: ONDANSETRON HCL 4 MG/2 ML VIAL IV PRN (14:07)
[2025-06-01] MEDS: MORPHINE SULFATE INJ 2 MG/ml SYRG IV PRN (14:08)
[2025-06-01] MEDS: LACTATED RINGER'S 750 ML IV ONE (14:09)
[2025-06-01 14:28] LABS: Chloride 104 mmol/L (98-107)
[2025-06-01 14:29] LABS: Anion Gap 18 (5-15); Calcium 10.2 mg/dL (8.7-10.4); Carbon Dioxide 28 mmol/L (20-31)
[2025-06-01 14:32] LABS: Potassium 3.2 mmol/L (3.5-5.1); Sodium 150 mmol/L (136-145)
[2025-06-01 14:34] VITALS: BP 144/99; PULSE 100; PULSE 101; RESP 18; TEMP 98.6; O2SAT 98
[2025-06-01 14:34] LABS: BUN/Creatinine Ratio 15.7 (10.0-20.0)
[2025-06-01 14:38] LABS: Blood Urea Nitrogen 36 mg/dL (9-23); Glucose 129 mg/dL (74-106)
[2025-06-01] MEDS: LACTATED RINGER'S 1,000 ML IV SCH (15:00)
--- NOTE | 2025-06-01 15:25 | ECG ---
[facility] Test Date: 2025-06-01 Test Time: 07:37:26 Pat Name: ROBERT COLES Department: ED Room: [facility] Gender: F Documentation Designer: NAOMI : 1955 Requested By: ALLA HU Order Number: [id number] Reading MD: Naif Sibley Measurements Intervals [place] Rate: 126 P: 55 GA: 122 QRS: 44 QRSD: 89 T: 39 QT: 317 QTc: 459 Interpretive Statements Sinus tachycardia Low voltage, precordial leads Minimal ST depression, inferior leads Artifact in lead(s) II,III,aVF Electronically Signed On 06-03-2025 17:45:27 PST by Naif Sibley Please click the below link to view image of tracing.
[2025-06-01 16:13] LABS: Hepatitis B Surface Antigen Negative (Negative)
[2025-06-01 16:36] LABS: Hepatitis C Antibody Negative (Negative)
[2025-06-01 16:38] VITALS: BP 134/94; PULSE 105; RESP 16; TEMP 97.8; O2SAT 97
--- NOTE | 2025-06-01 16:53 | DVHCONRES ---
Date Seen: Jun 01, 2025 Resident Creating Document: JON VIDES RESIDENT Referring Physician Dr. Monet History of Present Illness Patient is a 70-year-old female with a medical history of GERD, depression, bipolar disorder, hypothyroidism, hypothyroidism gastric bypass in 1982, insomnia presented to the ED with a chief complaint of intractable nausea vomiting for 1 week. Patient reported she started to have nausea and subsequent vomiting last week on Sunday which was gradually progressive, initially she was able to tolerate a liquid and since she has not been able to keep anything down. Denied vomiting any bright red blood, reports vomiting dark brown flecks. She also reported of associated abdominal pain in the left upper quadrant and in the epigastric area and reported of chest pain when she vomited and a sensation of food getting stuck in the chest when she swallowed. Denied any fever or chills, no food intake outside of normal prior to illness. Patient reports since she got the gastric bypass surgery she has had episodes of intract able nausea or vomiting every 2-3 years. The last time she was hospitalized because of intractable nausea vomiting was about 3 years ago when she underwent EGD in this facility because at the time she had coffee-ground emesis and melena which showed gastritis, gastric polyps from 35-40 cm. Patient reports that she changed insurance and has not been taking her medications for about 2 years. Medical history: As per HPI Surgical history: Gastric bypass surgery, cholecystectomy, hysterectomy Social history: Patient denies smoking, alcohol, drug use Home medications: Was taking olanzapine, mirtazapine, Ambien but since her insurance if she has not been taking medications for about 2 years Patient seen and examined. Reports last EGD was 3 years back, colonoscopy around 10 years back. Family History: Diabetes mellitus G8 MOTHER FH: obesity G8 FATHER, Pacemaker G8 MOTHER Allergies: Coded Allergies: Prochlorperazine (Verified Allergy, Unknown, 01/01/22) Home Meds Active Scripts Sulfamethoxazole W/Trimethopri (Bactrim Ds Tablet) 1 Tab Tb, 1 TAB PO BID, #10 TAB Prov:ILTO OHARA MD 12/04/22 Docusate Sodium (Colace) 100 Mg Cap, 100 MG PO DAILY PRN MDD Constipation, #30 MG Prov:LITO OHARA MD 12/04/22 Ferrous Sulfate (Ferrous Sulfate) 325 Mg Tab, 325 MG PO TIDWMEALS, #90 MG Prov:LITO OHARA MD 12/04/22 Pantoprazole Sodium Sesquihydr (Protonix) 40 Mg Tab, 40 MG PO BID, #60 TAB Prov:LITO OHARA MD 01/05/22 Reported Medications Pregabalin (Pregabalin) 100 Mg Cap, 1 CAP PO TID 12/02/22 Eszopiclone (Lunesta) 2 Mg Tab, 1 TAB PO QHSP PRN for INSOMNIA 12/02/22 Levothyroxine Sodium (Levothyroxine Sodium) 25 Mcg Tab, 1 TAB PO DAILY 12/02/22 Mirtazapine (REMERON) 30 Mg Tab, 1 TAB PO 12/02/22 Olanzapine (Zyprexa) 10 Mg Tab, 1 TAB PO 12/02/22 Current Medications Current Medications Medications (Trade) Dose Ordered Sig/Chela Route PRN Reason Start Time Stop Time Status Last Admin Pantoprazole Sodium (Protonix) 40 mg BID IV 06/01/25 22:00 Ondansetron HCl (Zofran) 4 mg Q6HPRN PRN IV NAUSEA / VOMITING 06/01/25 12:15 06/01/25 14:07 Lactated Ringer's 1,000 ml @ 100 mls/hr Q10H IV 06/01/25 15:00 06/01/25 15:00 Diagnostic Test (Pha) (Accu-Chek Comfort Curve T) 1 strip Q6HR 06/01/25 18:00 Insulin Human Regular (InsuLIN R) Q6HR SC 06/01/25 18:00 Dextrose 50 ml UD PRN IV Blood Sugar LESS THAN 60 06/01/25 12:15 Morphine Sulfate 2 mg Q6HPRN PRN IV SEVERE PAIN (7-10 PAIN SCALE) 06/01/25 12:15 06/01/25 14:08 Review of Systems Eyes: No Pain, No Vision change, No Conjunctivae inflammation, No Eyelid inflammation, No Other, No Redness ENT: No Ear pain, No Ear discharge, No Nose pain, No Nose discharge, No Nose congestion, No Mouth pain, No Mouth swelling, No Throat pain, No Throat swelling, No Other Cardiovascular: No Chest Pain, No Palpitations, No Orthopnea, No PND, No Edema, No Lt Headedness, No Other Respiratory: No Cough, No Dry, No Shortness of breath, No SOB with exertion, No Wheezing, No Hemoptysis, No Pleuritic Pain, No Sputum, No Other Gastrointestinal: Reports nausea, vomiting, abdominal pain, No Diarrhea, No Constipation, No Melena, No Hematochezia, No Other Genitourinary: No Dysuria, No Frequency, No Incontinence, No Hematuria, No Retention, No Other Musculoskeletal: No other, No neck pain, No shoulder pain, No arm pain, No back pain, No hand pain, No leg pain, No foot pain Skin: No Rash, No Lesions, No Jaundice, No Bruising, No Other Vital Signs Vital Signs Date Time Temp Pulse Resp B/P (MAP) Pulse Ox O2 Delivery O2 Flow Rate FiO2 06/01/25 16:38 97.8 105 16 134/94 (107) 97 97.8 06/01/25 14:34 Room Air* 0 21 Physical Exam Patient lying in bed, in no acute distress General: Well-built, afebrile, palor, mucosae are moist Cardiovascular: Regular S1 and S2. No murmurs, gallops or rubs. No JVD elevation. No pedal edema Respiratory: Normal B/L air entry on room air. Clear lung sounds on auscultation Abdomen: Soft, diffuse tenderness, nondistended, hypoactive bowel sounds, no rebound tenderness, no organomegaly, no masses Genitourinary: Deferred MSK/skin: Mobilizes 4 limbs. Skin is dry and warm Neurological: No motor, no sensitive deficits, normal speech. Pupils are isocoric and reactive. Psych/Mental Status: A/Ox3 Labs/Diagnostic Data Labs Test 06/01/25 13:56 06/01/25 07:57 Range/Units Sodium Level 150 H 136-145 mmol/L Potassium Level 3.2 L 3.5-5.1 mmol/L Chloride Level 104 98-107 mmol/L Carbon Dioxide Level 28 20-31 mmol/L Anion Gap 18 H 5-15 Blood Urea Nitrogen 36 H 9-23 mg/dL Creatinine 2.29 H 0.550-1.02 mg/dL Glomerular Filtration Rate Calc 22 >90 mL/min BUN/Creatinine Ratio 15.7 10.0-20.0 Serum Glucose 129 H 74-106 mg/dL Calcium Level 10.2 8.7-10.4 mg/dL White Blood Count 10.2 4.4-10.8 10^3/uL Red Blood Count 4.99 4.0-5.20 10^6/uL Hemoglobin 14.0 12.2-16.2 g/dL Hematocrit 43.1 36.0-46.0 % Mean Corpuscular Volume 86.4 80.0-100.0 fL Mean Corpuscular Hemoglobin 28.1 28.0-32.0 pg Mean Corpuscular Hemoglobin Concent 32.6 32.0-36.0 g/dL Red Cell Distribution Width 16.3 H 11.8-14.3 % Platelet Count 435 140-450 10^3/uL Mean Platelet Volume 8.0 6.9-10.8 fL Neutrophils (%) (Auto) 84.8 H 37.0-80.0 % Lymphocytes (%) (Auto) 10.0 10.0-50.0 % Monocytes (%) (Auto) 4.8 0.0-12.0 % Eosinophils (%) (Auto) 0.0 0.0-7.0 % Basophils (%) (Auto) 0.4 0.0-2.0 % Neutrophils # (Auto) 8.7 H 1.6-8.6 10 ^3/uL Lymphocytes # (Auto) 1.0 0.4-5.4 10 ^3/uL Monocytes # (Auto) 0.5 0-1.3 10 ^3/uL Eosinophils # (Auto) 0 0-0.8 10 ^3/uL Basophils # (Auto) 0 0-0.2 10 ^3/uL Nucleated Red Blood Cells 0.1 % Total Bilirubin 0.6 0.2-1.0 mg/dL Aspartate Amino Transferase (AST) 29 13-40 U/L Alanine Aminotransferase (ALT) 14 7-40 U/L Alkaline Phosphatase 102 46-116 U/L Total Protein 10.0 H 5.7-8.2 g/dL Albumin 5.1 H 3.2-4.8 g/dL Lipase 28 12-53 U/L Hepatitis B Surface Antigen Negative Negative Hepatitis C Antibody Negative Negative Assessment Intractable nausea and vomiting ? Acute pancreatitis Acute kidney injury vasomotor mediated ? CKD History of gastric bypass surgery/gastric sleeve Hypernatremia Hypokalemia History of gastritis and gastric polyps Upper EGD from 01/04/2022 showed gastritis, gastric polyps, no active bleeding CT abdomen shows Peripancreatic fat stranding which may represent acute pancreatitis. Correlation with pancreatic laboratory values is recommended. No fluid collection. Plan: Recommendation: Dr. King Given intractable nausea and vomiting, history of gastritis and gastric polyps, patient will be scheduled for upper EGD 06/02. NPO after midnight. Obtain consent. Patient would benefit from outpatient GI follow up and elective colonoscopy has the last colonoscopy was around 10 years back Continue Protonix 40 mg IV b.i.d., Zofran PRN Continue IV LR Correct underlying electrolyte abnormalities Plan discussed with patient in which all questions have been answered Case discussed with Dr. King Plan discussed with: Patient JON VIDES RESIDENT Jun 01, 2025 16:53
[2025-06-01] MEDS: InsuLIN REG 1unit/0.01ml Soln (100units/ml) SC SCH (18:00)
[2025-06-01] MEDS: ACCU-CHEK COMFORT CURVE STRIP VI SCH (18:12)
[2025-06-01] MEDS: POTASSIUM CHL 20MEQ/100ML 100 ML IV ONE (18:13)
[2025-06-01] MEDS: POTASSIUM CHLORIDE 40 MEQ, LIDOCAINE 1% (LOCAL ANESTH.) 4 ML in SODIUM CHL 0.9% 250 ML IV ONE (18:45)
[2025-06-01] MEDS: LACTATED RINGER'S 500 ML IV ONE (19:00)
--- NOTE | 2025-06-01 19:04 | DVH ---
CHEST RADIOGRAPH Indication: pre-op Technique: Single frontal view of the chest was obtained Comparison: XY CHEST PORTABLE on DOS: 03/18/25, XY CHEST PORTABLE on DOS: 12/01/22, CXRP on DOS: 01/01/22 FINDINGS: Lines and Tubes: None Lungs: No focal consolidation. Pleura: No effusion. No pneumothorax. Cardiomediastinal contours: Unremarkable Bones: No acute osseous abnormality. IMPRESSION: 1. No acute cardiopulmonary disease.
[2025-06-01 19:19] LABS: INR 1.08 (0.9-1.15); Partial Thromboplastin Time 25.1 SEC (24.5-34.5); Prothrombin Time 11.4 sec (9.3-11.8)
[2025-06-01 20:00] VITALS: PULSE 109; PULSE 99; RESP 18; O2SAT 95
[2025-06-01] MEDS: MORPHINE SULFATE 4 MG/ML SYR/VIAL IV PRN (20:44)
[2025-06-01 21:45] VITALS: BP 121/83; PULSE 99; RESP 18; TEMP 98.6; O2SAT 95
[2025-06-01] MEDS: MELATONIN 5 MG TAB PO SCH (22:00)
[2025-06-01] MEDS: PANTOPRAZOLE 40 MG/10 ML VIAL INJ IV SCH (22:13)
[2025-06-02] VITALS (10 sets, daily range): BP systolic 91–148; BP diastolic 56–88; PULSE 57–101; RESP 14–18; TEMP 97.6–99.2; O2SAT 90–100
[2025-06-02 08:02] LABS: Hematocrit 34.8 % (36.0-46.0); Hemoglobin 11.4 g/dL (12.2-16.2); Mean Corpuscular Hemoglobin 28.2 pg (28.0-32.0); Mean Corpuscular Volume 86.1 fL (80.0-100.0); Nucleated Red Blood Cells % 0.3 %
[2025-06-02 08:15] LABS: Alanine Aminotransferase 16 U/L (7-40); Alkaline Phosphatase 75 U/L (46-116); Anion Gap 12 (5-15); BUN/Creatinine Ratio 19.9 (10.0-20.0); Calcium 9.3 mg/dL (8.7-10.4); Carbon Dioxide 29 mmol/L (20-31); INR 1.08 (0.9-1.15); Magnesium 1.9 mg/dL (1.6-2.6); Partial Thromboplastin Time 22.5 SEC (24.5-34.5); Potassium 3.6 mmol/L (3.5-5.1); Prothrombin Time 11.4 sec (9.3-11.8); Total Protein 7.7 g/dL (5.7-8.2)
[2025-06-02 08:16] LABS: Albumin 4.0 g/dL (3.2-4.8); Bilirubin, Total 0.6 mg/dL (0.2-1.0); Blood Urea Nitrogen 33 mg/dL (9-23); Chloride 108 mmol/L (98-107); Glucose 115 mg/dL (74-106); Sodium 149 mmol/L (136-145)
[2025-06-02] MEDS ORDERED: NALOXONE HCL 0.4 MG/ML VIAL ONE (12:14)
[2025-06-02] MEDS ORDERED: SODIUM CHLORIDE LOCK 10 ML ONE (12:15)
[2025-06-02] MEDS ORDERED: FLUMAZENIL 0.1 MG/ML INJ 10ML MDV IV ONE (12:15)
[2025-06-02] MEDS ORDERED: SIMETHICONE 40 MG/0.6 ML ORAL DROP ONE (12:54)
[2025-06-02] MEDS: LIDOCAINE VISCOUS 2% 15ML UD ONE (14:30)
[2025-06-02] MEDS: fentaNYL CITRATE 100 MCG/2 ML VL ONE (14:31)
[2025-06-02] MEDS: MIDAZOLAM HCL 5 MG/ML-1ML VIAL ONE (14:31)
[2025-06-02] MEDS: diphenhydrAMINE HCL 50 MG/1 ML VL ONE (14:31)
--- NOTE | 2025-06-02 15:14 | DVHOP2 ---
Operative Report DATE OF OPERATION: 06/02/25 PROCEDURE: Upper Endoscopy with biopsy. PREOPERATIVE INDICATION: The patient is a 70 -year-old female undergoing endoscopy for nausea vomiting and coffee-ground emesis POSTOPERATIVE DIAGNOSES: 1. 2-3 cm sliding-type hiatal hernia with severe grade B to C linear erosive esophagitis with distal esophageal ulcers from which biopsies were obtained 2. Patient had midbody gastric narrowing likely due to gastric stapling 3. Mild to moderate linear antral gastritis and mild duodenitis 4. Otherwise normal examination up to the 2nd and 3rd part of the duodenum PROCEDURE PERFORMED BY: Alejandro King GI NURSE: Mari SCOPE: Olympus videoendoscope. ASA CLASS: 3 PREOPERATIVE MEDICATIONS: Versed 3 mg, Fentanyl 75 mcg, Benadryl 50 mg I administered moderate sedation throughout this _9_ minutes procedure. An independent trained observer pushed medications at my direction, and monitored the patient's level of consciousness and physiological status throughout. PROCEDURE IN DETAIL: After obtaining an informed consent, the patient was placed on left lateral decubitus position. The patient was then sedated with the above medications. A bite block was placed between her teeth. The endoscope was then passed through the oropharynx, into the esophagus, and through the stomach and pylorus up to the second and third part of the duodenum. The endoscope was then withdrawn. The 2nd and 3rd part of the duodenum were normal. The duodenal bulb showed and postbulbar area showed mild duodenitis. Duodenal biopsies were obtained The pre-pyloric area antrum and distal body showed mild linear gastritis. Gastric biopsies were obtained The patient had on retroflexion the fundus and cardia were normal in the midbody of the stomach there was a narrowed opening and narrowing this appeared to be probably related to a gastric stapling In the proximal pouch above this area of narrowing had shown mild gastritis. Endoscope was then withdrawn into distal esophagus Patient had a 2 cm sliding-type hiatal hernia with severe grade B to C linear erosive esophagitis with ulcers extending into the distal 10 cm of the esophagus This was likely source of the upper GI bleeding but there was no bleeding at this time. Esophageal biopsies were obtained The patient tolerated the procedure well without difficulty. COMPLICATIONS : None SPECIMENS: Duodenal biopsies Gastric biopsies Esophageal biopsies DISPOSITION: Transfer back to the floor Stable PLAN: 1. Await for biopsy result 2. Will place pt on Protonix 40 mg bid p.o. 3. Carafate suspension 1 g p.o. twice a day 4. Start with a full liquid diet and maintain herself on a pureed or soft m echanical diet because of narrowed opening in her midbody of stomach 5. Outpatient follow up with me in 4-6 weeks to review results and discuss further management ALEJANDRO KING MD Jun 02, 2025 15:14
[2025-06-02] MEDS: SUCRALFATE 1 GM/10 ML ORAL SUSP PO SCH (17:03)
--- NOTE | 2025-06-02 17:44 | DVHPNRES ---
Progress Note Date Seen: Jun 02, 2025 Resident Creating Document: JOSEJ UAN BLANCO RESIDENT Medical Necessity Reason Pt with a Central, PICC or Fol: No Subjective Review of Systems Talib Tran is a 70-year-old female with a medical history of GERD, depression, bipolar disorder, hypothyroidism, hypothyroidism gastric bypass in 1982, insomnia who presented to the ED with the chief complaint of intractable nausea, vomiting and abdominal pain for 6 days. Patient reported that she started having nausea 6 days back with subsequent vomiting which was gradually progressive, initially he was able to tolerate liquids but was not able to keep anything down gradually. Patient reported having left-sided abdominal pain associated with it. The patient mentions noticing the vomitus to be dark brown in color on 1 occasion. Mentioned experiencing chills on 2 occasions in the last 6 days. She denied any fever or eating food from outside. She reports that since she got the gastric bypass surgery, has had recurrent episodes of nausea and vomiting. The last time she was hospitalized because of intractable nausea vomiting was about 3 years ago when she underwent EGD in this facility because at the time she had coffee-ground emesis and melena which showed gastritis, gastric polyps from 35-40 cm. Patient reports that she changed insurance and has not been taking her medications for about 2 years. The patient underwent EGD today, which showed sliding type hiatal hernia with grade B to C linear erosive esophagitis with distal esophageal ulcers, [id number] gastroenteritis and mild duodenitis. Past medical history: GERD, depression, bipolar disorder, hypothyroidism, hypothyroidism gastric bypass in 1982, insomnia Past surgical history: History of gastric sleeve surgery in 1982, cholecystectomy, hysterectomy Home medications:Was taking olanzapine, mirtazapine, Ambien but since her insurance if she has not been taking medications for about 2 years Social & Personal history: Denies smoking, alcohol, drug use Allergies: prochlorperazine Patient seen and examined at bedside. Patient is alert and oriented to time, place person and responding to all questions. Patient has no complaints at this time. Eyes: No Pain, No Vision change, No Conjunctivae inflammation, No Eyelid inflammation, No Redness ENT: No Ear pain, No Ear discharge, No Nose pain, No Nose discharge, No Nose congestion, No Mouth pain, No Mouth swelling, No Throat pain, No Throat swelling Cardiovascular: No Chest Pain, No Palpitations, No Orthopnea, No Paroxysmal No Dyspnea, No Edema, No Lt Headedness Respiratory: No Cough, No Dry, No Shortness of breath, No SOB with exertion, No Wheezing, No Hemoptysis, No Pleuritic Pain, No Sputum Gastrointestinal: No Nausea, No Vomiting, No Abdominal Pain, No Diarrhea, No Constipation, No Melena, No Hematochezia Genitourinary: No Dysuria, No Frequency, No Incontinence, No Hematuria, No Retention Objective vital signs Vital Sign Date Time Temp Pulse Resp B/P (MAP) Pulse Ox O2 Delivery O2 Flow Rate FiO2 06/02/25 15:32 97.6 60 16 120/69 (86) 98 97.6 06/02/25 14:45 Nasal Cannula 2.0 96 Total Intake and Output 06/01/25 06/01/25 06/02/25 15:00 23:00 07:00 Intake Total 500 ml 1000 ml 0 ml Output Total 0 ml Balance 500 ml 1000 ml 0 ml medications Current Medications Medications Dose Ordered Sig/Chela Route Start Time Stop Time Status Last Admin Dose Admin Pantoprazole Sodium 40 mg BID IV 06/01/25 22:00 06/02/25 09:14 40 MG Ondansetron HCl 4 mg Q6HPRN PRN IV 06/01/25 12:15 06/02/25 11:00 4 MG Lactated Ringer's 1,000 ml @ 100 mls/hr Q10H IV 06/01/25 15:00 06/02/25 17:05 100 MLS/HR Diagnostic Test (Pha) 1 strip Q6HR 06/01/25 18:00 06/02/25 12:00 1 STRIP Insulin Human Regular Q6HR SC 06/01/25 18:00 06/02/25 05:27 2 UNITS Dextrose 50 ml UD PRN IV 06/01/25 12:15 Morphine Sulfate 2 mg Q6HPRN PRN IV 06/01/25 20:15 06/02/25 11:02 2 MG Melatonin 5 mg HS PO 06/01/25 22:00 Sucralfate 1 gm QID@0600,1130,1700,2200 PO 06/02/25 17:00 06/02/25 17:03 1 GM Examination General Appearance: Cooperative. Well developed. Well nourished. NAD Head Exam: Normal inspection Neck Exam: Normal inspection. Non-tender. Normal alignment Pulmonary/Respiratory: Chest non-tender. Clear bilateral breath sounds, no crackles, no wheezing. Cardiovascular/Chest: Regular rate and rhythm. No murmurs. No JVD. Peripheral Pulses: 2+ Radial (R). 2+ Radial (L). 2+ Pedal (R). 2+ Pedal (L) Abdominal Exam: Normal bowel sounds. Soft. normal abdomen, no visible veins, m ild tenderness to palpation in epigastrium and left upper and lower quadrants. No hepatospenomegaly. No masses Ankle Exam: Negative ankle edema Lower extremities: Negative lower extremity edema Neuro/Mental Status: A&O x4. Coherent. Thoughts/Psych: Normal thought pattern. Appropriate mood and affect. Good judgement and insight Skin Exam: Normal inspection. Normal color. Warm. Dry laboratory and microbiology Laboratory Tests 06/02/25 07:49 Test 06/02/25 07:49 Range/Units Serum Glucose 115 H 74-106 mg/dL Labs and/or images reviewed: Labs reviewed by me, Image(s) reviewed by me Problem List/Assessment/Plan Problem List/Assessment/Plan # Acute intractable nausea and vomiting, likely due to PUD # Esophageal ulcer without active bleeding # Probable acute pancreatitis # H/o gastric bypass surgery # H/o gastric polyps # H/o upper GI bleed - Protonix 40 mg b.i.d. IV - Carafate 1 g p.o. q.i.d. - GI on board- EGD revealed sliding hiatal hernia, grade B to C erosive esophagitis, esophageal ulcers, [id number] gastral antritis and mild duodenitis - CT abdomen- Peripancreatic fat stranding which may represent acute pancreatitis - lipase 28 - full liquid diet # LESTRE on CKD likely prerenal due to VMN -LR at 100 mL/hour -avoid nephrotoxic agents -monitor BNP # Hypokalemia, likely due to vomiting -repleted -monitor BNP # Hypernatremia likely due to dehydration -monitor BNP # Hypothyroidism - resume home dose of levothyroxine 25 mcg # Chronic diabetes mellitus type 2, controlled -HbA1c 6 -mild insulin sliding scale DVT prophylaxis: held due to GI ulcer and hemoglobin dropping Goals of care discussed with the patient for over 19 minutes, Full code Plan discussed with Dr. Pardo Plan discussed with: Patient Date of Service: Jun 02, 2025 Billing Provider: NAA PARDO MD Common Visit Codes: [id number] INP/OBS CARE(HIGH) JOSE JUAN BLANCOUR RESIDENT Jun 02, 2025 17:44 NAA PARDO MD Jun 02, 2025 22:46
[2025-06-02 23:11] LABS: Urine Protein, UAD 1+ (Negative)
[2025-06-03] VITALS (7 sets, daily range): BP systolic 112–157; BP diastolic 66–98; PULSE 68–85; RESP 16–20; TEMP 98.2–99; O2SAT 90–97
[2025-06-03] MEDS: METOCLOPRAMIDE HCL 5MG/ml INJ 2ml VIAL IV ONE ×2 (03:10→20:53)
[2025-06-03 05:34] LABS: Hematocrit 31.2 % (36.0-46.0); Hemoglobin 10.1 g/dL (12.2-16.2)
[2025-06-03] MEDS: LEVOTHYROXINE SODIUM 25 MCG TAB PO SCH (05:44)
[2025-06-03 07:05] LABS: Chloride 105 mmol/L (98-107)
[2025-06-03 07:06] LABS: Anion Gap 16 (5-15); Calcium 8.8 mg/dL (8.7-10.4); Carbon Dioxide 27 mmol/L (20-31)
[2025-06-03 07:08] LABS: Potassium 3.5 mmol/L (3.5-5.1); Sodium 148 mmol/L (136-145)
[2025-06-03 07:11] LABS: BUN/Creatinine Ratio 28.7 (10.0-20.0); Glucose 101 mg/dL (74-106)
[2025-06-03 07:22] LABS: Blood Urea Nitrogen 31 mg/dL (9-23)
[2025-06-03] MEDS ORDERED: PANT-62 PO (13:27)
[2025-06-03] MEDS ORDERED: SUCR1SUS26 PO (13:27)
--- NOTE | 2025-06-03 15:07 | DVHDSRES ---
Discharge Summary Date of Admission Resident Creating Document: JOSE JUAN BLANCO RESIDENT Jun 01, 2025 at 12:03 Date of Discharge: Jun 03, 2025 Admitting Diagnosis Intractable nausea and vomiting, rule out acute pancreatitis Labs/Diagnostic Data: Laboratory Results Test 06/03/25 05:33 06/03/25 04:30 06/02/25 22:48 06/02/25 07:49 POC Glucose 102 mg/dl (70-106) Hemoglobin 10.1 g/dL (12.2-16.2) Hematocrit 31.2 % (36.0-46.0) Sodium Level 148 mmol/L (136-145) Potassium Level 3.5 mmol/L (3.5-5.1) Chloride Level 105 mmol/L (98-107) Carbon Dioxide Level 27 mmol/L (20-31) Anion Gap 16 (5-15) Blood Urea Nitrogen 31 mg/dL (9-23) Creatinine 1.08 mg/dL (0.550-1.02) Glomerular Filtration Rate Calc 55 mL/min (>90) BUN/Creatinine Ratio 28.7 (10.0-20.0) Serum Glucose 101 mg/dL (74-106) Calcium Level 8.8 mg/dL (8.7-10.4) Urine Color Yellow (Yellow) Urine Clarity Turbid (Clear) Urine pH 5.5 (5.0-9.0) Urine Specific [place] 1.028 (1.001-1.035) Urine Protein 1+ (Negative) Urine Ketones 1+ (Negative) Urine Blood Negative /uL (Negative) Urine Nitrite Negative (Negative) Urine Bilirubin Negative (Negative) Urine Urobilinogen Normal mg/dL (Negative) Urine Leukocyte Esterase 1+ /uL (Negative) Urine RBC 2 /hpf (0 - 4) Urine Microscopic WBC 14 /HPF (0-5) Urine Squamous Epithelial Cells Mod /hpf (<5) Urine Bacteria Many /hpf (None Seen) Urine Mucus Few (None Seen) Urine Glucose Normal mg/dL (Normal) White Blood Count 9.6 10^3/uL (4.4-10.8) Red Blood Count 4.05 10^6/uL (4.0-5.20) Mean Corpuscular Volume 86.1 fL (80.0-100.0) Mean Corpuscular Hemoglobin 28.2 pg (28.0-32.0) Mean Corpuscular Hemoglobin Concent 32.8 g/dL (32.0-36.0) Red Cell Distribution Width 16.5 % (11.8-14.3) Platelet Count 323 10^3/uL (140-450) Mean Platelet Volume 7.9 fL (6.9-10.8) Neutrophils (%) (Auto) 78.1 % (37.0-80.0) Lymphocytes (%) (Auto) 14.5 % (10.0-50.0) Monocytes (%) (Auto) 6.8 % (0.0-12.0) Eosinophils (%) (Auto) 0.0 % (0.0-7.0) Basophils (%) (Auto) 0.6 % (0.0-2.0) Neutrophils # (Auto) 7.5 10 ^3/uL (1.6-8.6) Lymphocytes # (Auto) 1.4 10 ^3/uL (0.4-5.4) Monocytes # (Auto) 0.7 10 ^3/uL (0-1.3) Eosinophils # (Auto) 0 10 ^3/uL (0-0.8) Basophils # (Auto) 0.1 10 ^3/uL (0-0.2) Nucleated Red Blood Cells 0.3 % Prothrombin Time 11.4 sec (9.3-11.8) Prothrombin Time INR 1.08 (0.9-1.15) Activated Partial Thromboplast Time 22.5 SEC (24.5-34.5) Hemoglobin A1c 6.0 % A1C (<5.7) Magnesium Level 1.9 mg/dL (1.6-2.6) Total Bilirubin 0.6 mg/dL (0.2-1.0) Aspartate Amino Transferase (AST) 35 U/L (13-40) Alanine Aminotransferase (ALT) 16 U/L (7-40) Alkaline Phosphatase 75 U/L (46-116) Total Protein 7.7 g/dL (5.7-8.2) Albumin 4.0 g/dL (3.2-4.8) Thyroid Stimulating Hormone (TSH) 2.66 uIU/mL (0.55-4.78) Test 06/01/25 07:57 Lipase 28 U/L (12-53) Hepatitis B Surface Antigen Negative (Negative) Hepatitis C Antibody Negative (Negative) Other Laboratory Tests 06/03/25 04:30 06/02/25 07:49 Brief Hx & Hospital Course: Talib Tran is a 70-year-old female with a medical history of GERD, depression, bipolar disorder, hypothyroidism, hypothyroidism gastric bypass in 1982, insomnia who presented to the ED with the chief complaint of intractable nausea, vomiting and abdominal pain for 6 days. Patient reported that she started having nausea 6 days before admission with subsequent vomiting which was gradually progressive, initially she was able to tolerate liquids but was not able to keep anything down gradually. Patient reported having left-sided abdominal pain associated with it. The patient mentions noticing the vomitus to be dark brown in color on 1 occasion. Mentioned experiencing chills on 2 occasions in the last 6 days. She denied any fever or eating food from outside. She reported that since she got the gastric bypass surgery, has had recurrent episodes of nausea and vomiting. The last time she was hospitalized because of intractable nausea vomiting was about 3 years ago when she underwent EGD in this facility because at the time she had coffee-ground emesis and melena which showed gastritis, gastric polyps from 35-40 cm. Patient reports that she changed insurance and has not been taking her medications for about 2 years. Abdomen/pelvic CT showed peripancreatic fat stranding which may represent acute pancreatitis, but lipase was 28, so acute pancreatitis was ruled out.The patient underwent EGD on 06/02/2025, which showed sliding type hiatal hernia with grade B to C linear erosive esophagitis with distal esophageal ulcers, [id number] gastroenteritis and mild duodenitis. The patient was given Protonix 40 mg b.i.d. and Carafate 1 g p.o. q.i.d.. The patient mentioned her symptoms improved. She was discharged home in a stable condition. Medications and recommendations were thoroughly explained to the patient and she demonstrated understanding of the same. She was recommended to follow up with discharge clinic in 1 week, with PCP in 1-2 weeks and with GI for biopsy results. Past medical history: GERD, depression, bipolar disorder, hypothyroidism, hypothyroidism gastric bypass in 1982, insomnia Past surgical history: History of gastric sleeve surgery in 1982, cholecystectomy, hysterectomy Home medications:Was taking olanzapine, mirtazapine, Ambien but since her insurance if she has not been taking medications for about 2 years Social & Personal history: Denies smoking, alcohol, drug use Allergies: prochlorperazine General Appearance: Cooperative. Well developed. Well nourished. NAD Head Exam: Normal inspection Neck Exam: Normal inspection. Non-tender. Normal alignment Pulmonary/Respiratory: Chest non-tender. Clear bilateral breath sounds, no crackles, no wheezing. Cardiovascular/Chest: Regular rate and rhythm. No murmurs. No JVD. Peripheral Pulses: 2+ Radial (R). 2+ Radial (L). 2+ Pedal (R). 2+ Pedal (L) Abdominal Exam: Normal bowel sounds. Soft. normal abdomen, no visible veins, Nontender. No hepatospenomegaly. No masses Ankle Exam: Negative ankle edema Lower extremities: Negative lower extremity edema Neuro/Mental Status: A&O x4. Coherent. Thoughts/Psych: Normal thought pattern. Appropriate mood and affect. Good judgement and insight Skin Exam: Normal inspection. Normal color. Warm. Dry Operations or Procedures 1.PROCEDURE(s): ABPL - CT AB PEL WO CON-NO ORAL OR IV REASON: pain ORDER NUMBER(s): [id number], ACCESSION NUMBER(s): [id number] Exam: CT CT AB PEL WO CON-NO ORAL OR IV History: Pain. Comparison Study: CT CT AB PEL WO CON-NO ORAL OR IV on DOS: 03/18/25, [facility] on DOS: 01/02/22, [facility] on DOS: 01/02/22 Technique: Multidetector spiral CT of the abdomen and pelvis was performed from lung bases to pubic symphysis. Imaging was performed without intravenous contrast. Coronal and sagittal multiplanar reformats were obtained from the axial data set by the technologist. Radiation Dose : 1. Abdomen/Pelvis: CTDIvol 10.78 mGy, DLP 606.1 mGy*cm. Findings: Evaluation of vasculature and solid organs is limited due to lack of intravenous contrast use. Lung Bases: Lung bases are clear. Visualized portions of the heart and pericardium are unremarkable. Liver: The liver is normal in size. No focal lesions. Gallbladder and Biliary Tree: The gallbladder is surgically absent. No intrahepatic or extrahepatic biliary ductal dilatation. Spleen: Unremarkable Pancreas: There is peripancreatic fat stranding. No fluid collection. Adrenal Glands: Unremarkable Kidneys: Kidneys are unremarkable without calculi or hydronephrosis. GI tract: There are postsurgical changes from prior gastric bypass surgery. Visualized portions of the stomach are unremarkable. No small bowel dilatation or mucosal thickening. Colon is underdistended. No findings to suggest acute appendicitis. Peritoneum/mesentery/retroperitoneum. No evidence of free intraperitoneal air. No ascites. No evidence of suspicious lymphadenopathy. Abdominal Wall: Unremarkable. Vasculature: The visualized abdominal aorta is normal in size and caliber. Evaluation of abdominal and pelvic vessels is limited due to lack of intravenous contrast. Urinary Bladder: Grossly unremarkable for degree of distention. Pelvic Organs: Unremarkable Musculoskeletal: No aggressive focal bony lesions, acute fractures or dislocation. There is grade 1 anterolisthesis at L4-L5. IMPRESSION: 1. Peripancreatic fat stranding which may represent acute pancreatitis. Correlation with pancreatic laboratory values is recommended. No fluid collection. 2. Postsurgical changes from prior gastric bypass surgery. 2.PROCEDURE(s): KUB - KUB ABDOMEN SINGLE VIEW REASON: Intractable N/V, rule out obstruction ORDER NUMBER(s): [id number], ACCESSION NUMBER(s): [id number] Date: 06/01/2025 12:33 PM Examination: XY KUB ABDOMEN SINGLE VIEW History: Intractable N/V, rule out obstruction Comparison: None TECHNIQUE: Frontal views of the abdomen was obtained. FINDINGS: Bowel gas pattern is unremarkable. The lung bases are unremarkable. No acute osseous abnormality identified. IMPRESSION: Nonobstructive bowel gas pattern. 3.PROCEDURE(s): CXR1 - CHEST XRAY 1 VIEW REASON: pre-op ORDER NUMBER(s): [id number], ACCESSION NUMBER(s): [id number] CHEST RADIOGRAPH Indication: pre-op Technique: Single frontal view of the chest was obtained Comparison: XY CHEST PORTABLE on DOS: 03/18/25, XY CHEST PORTABLE on DOS: 12/01/22, CXRP on DOS: 01/01/22 FINDINGS: Lines and Tubes: None Lungs: No focal consolidation. Pleura: No effusion. No pneumothorax. Cardiomediastinal contours: Unremarkable Bones: No acute osseous abnormality. IMPRESSION: 1. No acute cardiopulmonary disease 4.Operative Report DATE OF OPERATION: 06/02/25 PROCEDURE: Upper Endoscopy with biopsy. PREOPERATIVE INDICATION: The patient is a 70 -year-old female undergoing endoscopy for nausea vomiting and coffee-ground emesis POSTOPERATIVE DIAGNOSES: 1. 2-3 cm sliding-type hiatal hernia with severe grade B to C linear erosive esophagitis with distal esophageal ulcers from which biopsies were obtained 2. Patient had midbody gastric narrowing likely due to gastric stapling 3. Mild to moderate linear antral gastritis and mild duodenitis 4. Otherwise normal examination up to the 2nd and 3rd part of the duodenum PROCEDURE PERFORMED BY: Fozia King GI NURSE: Mari SCOPE: Olympus videoendoscope. ASA CLASS: 3 PREOPERATIVE MEDICATIONS: Versed 3 mg, Fentanyl 75 mcg, Benadryl 50 mg I administered moderate sedation throughout this _9_ minutes procedure. An independent trained observer pushed medications at my direction, and monitored the patient's level of consciousness and physiological status throughout. PROCEDURE IN DETAIL: After obtaining an informed consent, the patient was placed on left lateral decubitus position. The patient was then sedated with the above medications. A bite block was placed between her teeth. The endoscope was then passed through the oropharynx, into the esophagus, and through the stomach and pylorus up to the second and third part of the duodenum. The endoscope was then withdrawn. The 2nd and 3rd part of the duodenum were normal. The duodenal bulb showed and postbulbar area showed mild duodenitis. Duodenal biopsies were obtained The pre-pyloric area antrum and distal body showed mild linear gastritis. Gastric biopsies were obtained The patient had on retroflexion the fundus and cardia were normal in the midbody of the stomach there was a narrowed opening and narrowing this appeared to be probably related to a gastric stapling In the proximal pouch above this area of narrowing had shown mild gastritis. Endoscope was then withdrawn into distal esophagus Patient had a 2 cm sliding-type hiatal hernia with severe grade B to C linear erosive esophagitis with ulcers extending into the distal 10 cm of the esophagus This was likely source of the upper GI bleeding but there was no bleeding at this time. Esophageal biopsies were obtained The patient tolerated the procedure well without difficulty. COMPLICATIONS : None SPECIMENS: Duodenal biopsies Gastric biopsies Esophageal biopsies DISPOSITION: Transfer back to the floor Stable PLAN: 1. Await for biopsy result 2. Will place pt on Protonix 40 mg bid p.o. 3. Carafate suspension 1 g p.o. twice a day 4. Start with a full liquid diet and maintain herself on a pureed or soft mechanical diet because of narrowed opening in her midbody of stomach 5. Outpatient follow up with me in 4-6 weeks to review results and discuss further management Condition at Discharge: Fair Final Diagnosis/Problems List Acute intractable nausea and vomiting, likely due to PUD Esophageal ulcer without active bleeding Probable acute pancreatitis, ruled out LESTER on CKD likely prerenal due to VMN H/o gastric bypass surgery H/o gastric polyps H/o upper GI bleed Hypokalemia, likely due to vomiting Hypernatremia likely due to dehydration Hypothyroidism Chronic diabetes mellitus type 2, controlled Discharge Disposition: Home Discharge Instruct/Medications Diet: Regular Activity: No Restrictions, As Tolerated Follow Up/Referral: Follow-up in [place] clinic in 1 week Followup with PCP in 1-2 weeks Follow-up with GI in 2-4 weeks for biopsy results Scheduled Ferrous Sulfate (Ferrous Sulfate), 325 MG PO TIDWMEALS Levothyroxine Sodium (Levothyroxine Sodium), 1 TAB PO DAILY, (Reported) Pantoprazole Sodium Sesquihydr (Protonix), 40 MG PO BID Pantoprazole Sodium Sesquihydr (Pantoprazole Sodium Dr), 40 MG PO BID Pregabalin (Pregabalin), 1 CAP PO TID, (Reported) Sucralfate (Carafate Susp), 1 GM PO QID@0600,1130,1700,2200 Sulfamethoxazole W/Trimethopri (Bactrim Ds Tablet), 1 TAB PO BID Scheduled PRN Docusate Sodium (Colace), 100 MG PO DAILY PRN Eszopiclone (Lunesta), 1 TAB PO QHSP PRN for INSOMNIA, (Reported) Ondansetron Odt 4MG Tab (Zofran Po), 4 MG PO TID PRN Miscellaneous Medications Mirtazapine (Remeron), 1 TAB PO, (Reported) Olanzapine (Zyprexa), 1 TAB PO, (Reported) Discharge Statement: "Patient was advised to return to the ER or call 911 if any headaches, dizziness, shortness of breath, chest pain, abdominal pain, bleeding, fevers, or worsening of medical condition. Patient was counseled about treatment plan, medications, possible side effects, patientverbalized understanding. All questions were answered to the best of my ability. This discharge took greater then 30 minutes in planning, reviewing documentation, counseling the patient, and discussing with other team members." ASSESSMENT ASSESSMENT Assessment Esophageal ulcer without GI bleed Date of Service: Jun 03, 2025 Billing Provider: NAA PARDO MD Common Visit Codes: 96849-AAC/OBS DISCH DAY >30min JOSE JUAN BLANCO RESIDENT Jun 03, 2025 15:07 NAA PARDO MD Jun 03, 2025 23:30
[2025-06-03] MEDS ORDERED: ZOFR4T PO (15:39)
--- NOTE | 2025-06-03 17:38 | DVHPN2 ---
Progress Note Date Seen: Jun 03, 2025 Resident Creating Document: JON VIDES RESIDENT Medical Necessity Reason Pt with a Central, PICC or Fol: No Subjective Review of Systems Patient is a 70-year-old female with a medical history of GERD, depression, bipolar disorder, hypothyroidism, hypothyroidism gastric bypass in 1982, insomnia presented to the ED with a chief complaint of intractable nausea vomiting for 1 week. Patient reported she started to have nausea and subsequent vomiting last week on Sunday which was gradually progressive, initially she was able to tolerate a liquid and since she has not been able to keep anything down. Denied vomiting any bright red blood, reports vomiting dark brown flecks. She also reported of associated abdominal pain in the left upper quadrant and in the epigastric area and reported of chest pain when she vomited and a sensation of food getting stuck in the chest when she swallowed. Denied any fever or chills, no food intake outside of normal prior to illness. Patient reports since she got the gastric bypass surgery she has had episodes of intractable nausea or vomiting every 2-3 years. The last time she was hospitalized because of intractable nausea vomiting was about 3 years ago when she underwent EGD in this facility because at the time she had coffee-ground emesis and melena which showed gastritis, gastric polyps from 35-40 cm. Patient reports that she changed insurance and has not been taking her medications for about 2 years. Medical history: As per HPI Surgical history: Gastric bypass surgery, cholecystectomy, hysterectomy Social history: Patient denies smoking, alcohol, drug use Home medications: Was taking olanzapine, mirtazapine, Ambien but since her insurance if she has not been taking medications for about 2 years 06/01 r-Patient seen and examined. Reports last EGD was 3 years back, colonoscopy around 10 years back. 06/03-no acute distress Objective vital signs Vital Sign Date Time Temp Pulse Resp B/P (MAP) Pulse Ox O2 Delivery O2 Flow Rate FiO2 06/03/25 16:22 98.6 84 20 157/66 (96) 97 98.6 06/03/25 08:00 Room Air* 0 21 Total Intake and Output 06/02/25 06/02/25 06/03/25 15:00 23:00 07:00 Intake Total 1340 ml 100 ml Balance 1340 ml 100 ml medications Current Medications Medications Dose Ordered Sig/Chela Route Start Time Stop Time Status Last Admin Dose Admin Pantoprazole Sodium 40 mg BID IV 06/01/25 22:00 06/03/25 10:38 40 MG Ondansetron HCl 4 mg Q6HPRN PRN IV 06/01/25 12:15 06/03/25 17:07 4 MG Diagnostic Test (Pha) 1 strip Q6HR 06/01/25 18:00 06/03/25 12:06 1 STRIP Insulin Human Regular Q6HR SC 06/01/25 18:00 06/02/25 05:27 2 UNITS Dextrose 50 ml UD PRN IV 06/01/25 12:15 Morphine Sulfate 2 mg Q6HPRN PRN IV 06/01/25 20:15 06/03/25 12:02 2 MG Melatonin 5 mg HS PO 06/01/25 22:00 Sucralfate 1 gm QID@0600,1130,1700,2200 PO 06/02/25 17:00 06/03/25 17:07 1 GM Levothyroxine Sodium 25 mcg QAM@0600 PO 06/03/25 06:00 06/03/25 05:44 25 MCG Examination Patient lying in bed, in no acute distress General: Well-built, afebrile, palor, mucosae are moist Cardiovascular: Regular S1 and S2. No murmurs, gallops or rubs. No JVD elevation. No pedal edema Respiratory: Normal B/L air entry on room air. Clear lung sounds on auscultation Abdomen: Soft, diffuse tenderness, nondistended, hypoactive bowel sounds, no rebound tenderness, no organomegaly, no masses Genitourinary: Deferred MSK/skin: Mobilizes 4 limbs. Skin is dry and warm Neurological: No motor, no sensitive deficits, normal speech. Pupils are isocoric and reactive. Psych/Mental Status: A/Ox3 laboratory and microbiology Laboratory Tests 06/03/25 04:30 06/02/25 07:49 Test 06/03/25 04:30 Range/Units Serum Glucose 101 74-106 mg/dL Labs and/or images reviewed: Labs reviewed by me, Image(s) reviewed by me Problem List/Assessment/Plan Problem List/Assessment/Plan Intractable nausea and vomiting ? Acute pancreatitis severe grade B to C linear erosive esophagitis with distal esophageal ulcers 2-3 cm sliding-type hiatal hernia Acute kidney injury vasomotor mediated ? CKD History of gastric bypass surgery/gastric sleeve Hypernatremia Hypokalemia History of gastritis and gastric polyps Upper EGD from 01/04/2022 showed gastritis, gastric polyps, no active bleeding CT abdomen shows Peripancreatic fat stranding which may represent acute pancreatitis. Correlation with pancreatic laboratory values is recommended. No fluid collection. POSTOPERATIVE DIAGNOSES: 1. with severe grade B to C linear erosive esophagitis with distal esophageal ulcers from which biopsies were obtained 2. Patient had midbody gastric narrowing likely due to gastric stapling 3. Mild to moderate linear antral gastritis and mild duodenitis 4. Otherwise normal examination up to the 2nd and 3rd part of the duodenum Plan: Recommendation: Dr. King Patient underwent upper EGD which showed hiatal hernia, erosive esophagitis with distal esophageal ulcers. Follow up with GI as outpatient for biopsy results and further management. Patient would benefit from outpatient GI follow up and elective colonoscopy has the last colonoscopy was around 10 years back Continue Protonix 40 mg IV b.i.d., Zofran PRN Continue IV LR Correct underlying electrolyte abnormalities Plan discussed with patient in which all questions have been answered Case discussed with Dr. King Plan discussed with: Patient JON VIDES RESIDENT Jun 03, 2025 17:38
[2025-06-04] VITALS (7 sets, daily range): BP systolic 115–161; BP diastolic 62–92; PULSE 63–86; RESP 17–18; TEMP 98.4–99.2; O2SAT 93–100
[2025-06-04 06:12] LABS: Hematocrit 30.5 % (36.0-46.0); Hemoglobin 9.8 g/dL (12.2-16.2)
[2025-06-04 06:29] LABS: Anion Gap 14 (5-15); Carbon Dioxide 28 mmol/L (20-31); Chloride 104 mmol/L (98-107)
[2025-06-04 06:34] LABS: Calcium 8.6 mg/dL (8.7-10.4); Potassium 3.2 mmol/L (3.5-5.1); Sodium 146 mmol/L (136-145)
[2025-06-04 06:35] LABS: BUN/Creatinine Ratio 20.2 (10.0-20.0); Blood Urea Nitrogen 20 mg/dL (9-23); Glucose 95 mg/dL (74-106)
[2025-06-04] MEDS ORDERED: POTASSIUM EFFERVESENT TAB 25 MEQ PO ONE (07:00)
[2025-06-04] MEDS: POTASSIUM EFFERVESENT TAB 25 MEQ PO ONE (09:35)
--- NOTE | 2025-06-04 12:51 | DVHPNRES ---
Progress Note Date Seen: Jun 04, 2025 Resident Creating Document: JOSE JUAN BLANCO RESIDENT Medical Necessity Reason Pt with a Central, PICC or Fol: No Subjective Review of Systems Talib Tran is a 70-year-old female with a medical history of GERD, depression, bipolar disorder, hypothyroidism, hypothyroidism gastric bypass in 1982, insomnia who presented to the ED with the chief complaint of intractable nausea, vomiting and abdominal pain for 6 days. Patient reported that she started having nausea 6 days back with subsequent vomiting which was gradually progressive, initially he was able to tolerate liquids but was not able to keep anything down gradually. Patient reported having left-sided abdominal pain associated with it. The patient mentions noticing the vomitus to be dark brown in color on 1 occasion. Mentioned experiencing chills on 2 occasions in the last 6 days. She denied any fever or eating food from outside. She reports that since she got the gastric bypass surgery, has had recurrent episodes of nausea and vomiting. The last time she was hospitalized because of intractable nausea vomiting was about 3 years ago when she underwent EGD in this facility because at the time she had coffee-ground emesis and melena which showed gastritis, gastric polyps from 35-40 cm. Patient reports that she changed insurance and has not been taking her medications for about 2 years. The patient underwent EGD today, which showed sliding type hiatal hernia with grade B to C linear erosive esophagitis with distal esophageal ulcers, [id number] gastroenteritis and mild duodenitis. Past medical history: GERD, depression, bipolar disorder, hypothyroidism, hypothyroidism gastric bypass in 1982, insomnia Past surgical history: History of gastric sleeve surgery in 1982, cholecystectomy, hysterectomy Home medications:Was taking olanzapine, mirtazapine, Ambien but since her insurance if she has not been taking medications for about 2 years Social & Personal history: Denies smoking, alcohol, drug use Allergies: prochlorperazine Patient seen and examined at bedside. Patient is alert and oriented to time, place person and responding to all questions. Patient has no complaints at this time. Eyes: No Pain, No Vision change, No Conjunctivae inflammation, No Eyelid inflammation, No Redness ENT: No Ear pain, No Ear discharge, No Nose pain, No Nose discharge, No Nose congestion, No Mouth pain, No Mouth swelling, No Throat pain, No Throat swelling Cardiovascular: No Chest Pain, No Palpitations, No Orthopnea, No Paroxysmal No Dyspnea, No Edema, No Lt Headedness Respiratory: No Cough, No Dry, No Shortness of breath, No SOB with exertion, No Wheezing, No Hemoptysis, No Pleuritic Pain, No Sputum Gastrointestinal: No Nausea, No Vomiting, No Abdominal Pain, No Diarrhea, No Constipation, No Melena, No Hematochezia Genitourinary: No Dysuria, No Frequency, No Incontinence, No Hematuria, No Retention 06/03/25- Patient was seen at bedside today. She continued to complain of nausea and had multiple episodes of vomiting, and was not able to keep anything down. She was given Reglan 5 mg IV. Discharge order was put in for the patient, but she did not go home due to the intractable vomiting. 06/04/2025- The patient was seen at bedside today. She mentioned her nausea had improved considerably. She did not have any episode of vomiting since last evening. Her potassium this morning was 3.2 and she was given 25 mEq potassium effervescent tablet. She will be discharged home today on Reglan, Carafate and Protonix. Patient was explained in detail about her low hemoglobin and recommended to follow-up with PCP within 1 week with repeat CBC. She was recommended to slowly advance her diet at home, as tolerated. Was given a repeat dose of 40 mEq calcium and 400 mg magnesium oxide. She was also sent potassium replacement for 3 days and recommended to eat bananas at home. Objective vital signs Vital Sign Date Time Temp Pulse Resp B/P (MAP) Pulse Ox O2 Delivery O2 Flow Rate FiO2 06/04/25 12:32 98.9 63 17 145/87 (106) 100 98.9 06/04/25 08:00 Room Air* 0 21 Total Intake and Output 06/03/25 06/03/25 06/04/25 15:00 23:00 07:00 Intake Total 940 ml 400 ml Balance 940 ml 400 ml medications Current Medications Medications Dose Ordered Sig/Chela Route Start Time Stop Time Status Last Admin Dose Admin Pantoprazole Sodium 40 mg BID IV 06/01/25 22:00 06/04/25 09:35 40 MG Ondansetron HCl 4 mg Q6HPRN PRN IV 06/01/25 12:15 06/03/25 23:25 4 MG Diagnostic Test (Pha) 1 strip Q6HR 06/01/25 18:00 06/04/25 12:00 1 STRIP Insulin Human Regular Q6HR SC 06/01/25 18:00 06/02/25 05:27 2 UNITS Dextrose 50 ml UD PRN IV 06/01/25 12:15 Morphine Sulfate 2 mg Q6HPRN PRN IV 06/01/25 20:15 06/03/25 23:26 2 MG Melatonin 5 mg HS PO 06/01/25 22:00 Sucralfate 1 gm QID@0600,1130,1700,2200 PO 06/02/25 17:00 06/04/25 12:01 1 GM Levothyroxine Sodium 25 mcg QAM@0600 PO 06/03/25 06:00 06/04/25 06:30 25 MCG Examination General Appearance: Cooperative. Well developed. Well nourished. NAD Head Exam: Normal inspection Neck Exam: Normal inspection. Non-tender. Normal alignment Pulmonary/Respiratory: Chest non-tender. Clear bilateral breath sounds, no crackles, no wheezing. Cardiovascular/Chest: Regular rate and rhythm. No murmurs. No JVD. Peripheral Pulses: 2+ Radial (R). 2+ Radial (L). 2+ Pedal (R). 2+ Pedal (L) Abdominal Exam: Normal bowel sounds. Soft. normal abdomen, no visible veins, no tenderness No hepatospenomegaly. No masses Ankle Exam: Negative ankle edema Lower extremities: Negative lower extremity edema Neuro/Mental Status: A&O x4. Coherent. Thoughts/Psych: Normal thought pattern. Appropriate mood and affect. Good judgement and insight Skin Exam: Normal inspection. Normal color. Warm. Dry laboratory and microbiology Laboratory Tests 06/04/25 04:30 06/02/25 07:49 Test 06/04/25 04:30 Range/Units Serum Glucose 95 74-106 mg/dL Labs and/or images reviewed: Labs reviewed by me, Image(s) reviewed by me Problem List/Assessment/Plan Problem List/Assessment/Plan # Acute intractable nausea and vomiting, likely due to PUD # Esophageal ulcer without active bleeding # Probable acute pancreatitis # H/o gastric bypass surgery # H/o gastric polyps # H/o upper GI bleed - Protonix 40 mg b.i.d. IV - Carafate 1 g p.o. q.i.d. - GI on board- EGD revealed sliding hiatal hernia, grade B to C erosive esophagitis, esophageal ulcers, [id number] gastral antritis and mild duodenitis - CT abdomen- Peripancreatic fat stranding which may represent acute pancreatitis - lipase 28 - full liquid diet - Reglan 5 mg IV p.r.n. # LESTER on CKD likely prerenal due to VMN -LR at 100 mL/hour -avoid nephrotoxic agents -monitor BNP # Hypokalemia, likely due to vomiting -repleted -monitor BNP # Hypernatremia likely due to dehydration -monitor BNP # Hypothyroidism - resume home dose of levothyroxine 25 mcg # Chronic diabetes mellitus type 2, controlled -HbA1c 6 -mild insulin sliding scale # acute anemia, normocytic hypochromic -hemoglobin today is 9.8>10 -patient recommended to follow up with repeat CBC with PCP within 1 week DVT prophylaxis: held due to GI ulcer and hemoglobin dropping Goals of care discussed with the patient for over 19 minutes, Full code Plan discussed with Dr. Rosa Plan discussed with: Patient My Orders My Orders Orders - JOSE JUAN BLANCO RESIDENT Procedure Category Date Status Time Discharge DISCHARGE 06/03/25 Transmitted 13:43 Schedule For Dc JOSHUA 06/03/25 In Process Clinic F/U 13:43 Communication Order ORDERS 06/03/25 Transmitted 17:49 Date of Service: Jun 04, 2025 Billing Provider: NAA ROSA MD Common Visit Codes: [id number] INP/OBS CARE(HIGH) JOSE JUAN BLANCO RESIDENT Jun 04, 2025 12:51 NAA ROSA MD Jun 05, 2025 20:58
[2025-06-04 13:18] LABS: Potassium 3.2 mmol/L (3.5-5.1)
[2025-06-04 13:30] LABS: Magnesium 1.6 mg/dL (1.6-2.6)
[2025-06-04 13:52] LABS: Hematocrit 30.8 % (36.0-46.0); Hemoglobin 10.0 g/dL (12.2-16.2); Mean Corpuscular Hemoglobin 27.6 pg (28.0-32.0); Mean Corpuscular Volume 85.2 fL (80.0-100.0); Nucleated Red Blood Cells % 0.2 %
--- NOTE | 2025-06-04 14:25 | DVHPN2 ---
Progress Note Date Seen: Jun 04, 2025 Resident Creating Document: JON VIDES RESIDENT Medical Necessity Reason Pt with a Central, PICC or Fol: No Subjective Review of Systems Patient is a 70-year-old female with a medical history of GERD, depression, bipolar disorder, hypothyroidism, hypothyroidism gastric bypass in 1982, insomnia presented to the ED with a chief complaint of intractable nausea vomiting for 1 week. Patient reported she started to have nausea and subsequent vomiting last week on Sunday which was gradually progressive, initially she was able to tolerate a liquid and since she has not been able to keep anything down. Denied vomiting any bright red blood, reports vomiting dark brown flecks. She also reported of associated abdominal pain in the left upper quadrant and in the epigastric area and reported of chest pain when she vomited and a sensation of food getting stuck in the chest when she swallowed. Denied any fever or chills, no food intake outside of normal prior to illness. Patient reports since she got the gastric bypass surgery she has had episodes of intractable nausea or vomiting every 2-3 years. The last time she was hospitalized because of intractable nausea vomiting was about 3 years ago when she underwent EGD in this facility because at the time she had coffee-ground emesis and melena which showed gastritis, gastric polyps from 35-40 cm. Patient reports that she changed insurance and has not been taking her medications for about 2 years. Medical history: As per HPI Surgical history: Gastric bypass surgery, cholecystectomy, hysterectomy Social history: Patient denies smoking, alcohol, drug use Home medications: Was taking olanzapine, mirtazapine, Ambien but since her insurance if she has not been taking medications for about 2 years 06/01 r-Patient seen and examined. Reports last EGD was 3 years back, colonoscopy around 10 years back. 06/03-no acute distress 06/04 - reports nausea, no bm for 5 days, abd soft, passing gas, electrolytes replenished, lactulose once Objective vital signs Vital Sign Date Time Temp Pulse Resp B/P (MAP) Pulse Ox O2 Delivery O2 Flow Rate FiO2 06/04/25 12:32 98.9 63 17 145/87 (106) 100 98.9 06/04/25 08:00 Room Air* 0 21 Total Intake and Output 06/03/25 06/03/25 06/04/25 15:00 23:00 07:00 Intake Total 940 ml 400 ml Balance 940 ml 400 ml medications Current Medications Medications Dose Ordered Sig/Chela Route Start Time Stop Time Status Last Admin Dose Admin Pantoprazole Sodium 40 mg BID IV 06/01/25 22:00 06/04/25 09:35 40 MG Ondansetron HCl 4 mg Q6HPRN PRN IV 06/01/25 12:15 06/03/25 23:25 4 MG Diagnostic Test (Pha) 1 strip Q6HR 06/01/25 18:00 06/04/25 12:00 1 STRIP Insulin Human Regular Q6HR SC 06/01/25 18:00 06/02/25 05:27 2 UNITS Dextrose 50 ml UD PRN IV 06/01/25 12:15 Morphine Sulfate 2 mg Q6HPRN PRN IV 06/01/25 20:15 06/03/25 23:26 2 MG Melatonin 5 mg HS PO 06/01/25 22:00 Sucralfate 1 gm QID@0600,1130,1700,2200 PO 06/02/25 17:00 06/04/25 12:01 1 GM Levothyroxine Sodium 25 mcg QAM@0600 PO 06/03/25 06:00 06/04/25 06:30 25 MCG Examination Patient lying in bed, in no acute distress General: Well-built, afebrile, palor, mucosae are moist Cardiovascular: Regular S1 and S2. No murmurs, gallops or rubs. No JVD elevation. No pedal edema Respiratory: Normal B/L air entry on room air. Clear lung sounds on auscultation Abdomen: Soft, diffuse tenderness, nondistended, hypoactive bowel sounds, no rebound tenderness, no organomegaly, no masses Genitourinary: Deferred MSK/skin: Mobilizes 4 limbs. Skin is dry and warm Neurological: No motor, no sensitive deficits, normal speech. Pupils are isocoric and reactive. Psych/Mental Status: A/Ox3 laboratory and microbiology Laboratory Tests 06/04/25 13:45 06/04/25 12:58 06/04/25 04:30 Test 06/04/25 04:30 Range/Units Serum Glucose 95 74-106 mg/dL Labs and/or images reviewed: Labs reviewed by me, Image(s) reviewed by me Problem List/Assessment/Plan Problem List/Assessment/Plan Intractable nausea and vomiting ? Acute pancreatitis severe grade B to C linear erosive esophagitis with distal esophageal ulcers 2-3 cm sliding-type hiatal hernia Acute kidney injury vasomotor mediated ? CKD History of gastric bypass surgery/gastric sleeve Hypernatremia Hypokalemia History of gastritis and gastric polyps Upper EGD from 01/04/2022 showed gastritis, gastric polyps, no active bleeding CT abdomen shows Peripancreatic fat stranding which may represent acute pancreatitis. Correlation with pancreatic laboratory values is recommended. No fluid collection. POSTOPERATIVE DIAGNOSES: 1. with severe grade B to C linear erosive esophagitis with distal esophageal ulcers from which biopsies were obtained 2. Patient had midbody gastric narrowing likely due to gastric stapling 3. Mild to moderate linear antral gastritis and mild duodenitis 4. Otherwise normal examination up to the 2nd and 3rd part of the duodenum Plan: Recommendation: Dr. King Patient underwent upper EGD which showed hiatal hernia, erosive esophagitis with distal esophageal ulcers. Follow up with GI as outpatient for biopsy results and further management. Patient would benefit from outpatient GI follow up and elective colonoscopy has the last colonoscopy was around 10 years back Continue Protonix 40 mg IV b.i.d., Zofran PRN Continue lactulose daily Replenish electrolytes Correct underlying electrolyte abnormalities Plan discussed with patient in which all questions have been answered Case discussed with Dr. King Plan discussed with: Patient My Orders My Orders Orders - JON VIDES Procedure Category Date Status Time Magnesium Sean PHA 06/04/25 Verified 15:00 Potassium Chl Sean PHA 06/04/25 Verified KCL 14:30 Lactulose Oral PHA 06/04/25 Verified 14:30 JON VIDES Jun 04, 2025 14:25
[2025-06-04] MEDS: MAGNESIUM SULFATE 1GM/100ML 100 ML IV SCH (16:46)
[2025-06-04] MEDS: POTASSIUM CHL 20MEQ/100ML 100 ML IV SCH (16:47)
[2025-06-04] MEDS: POTASSIUM CHL 20 Meq TABLET PO ONE (17:43)
[2025-06-04] MEDS: LACTULOSE 20Gm/30ML SOLN PO ONE (17:43)
[2025-06-04] MEDS: MAGNESIUM OXIDE 400 MG TAB PO ONE (17:44)
[2025-06-05] MEDS ORDERED: POTA-180 PO (08:24)
== END 2025-06-04 18:58 | disposition home or self-care (01) | DRG 380 ==
LOC: ER 07:24 → OVERFLOW 12:03 → TELE-WESTW 14:36 → WEST WING 06-03 10:40
PROVIDERS: ADMIT Internal Medicine; ATTEND Internal Medicine
PROC: 0DB68ZX Excision of Stomach, Via Natural or Artificial Opening Endoscopic, Diagnostic (ICD-10-PCS; 2025-06-02)
PROC: 0DB38ZX Excision of Lower Esophagus, Via Natural or Artificial Opening Endoscopic, Diagnostic (ICD-10-PCS; 2025-06-02)
PROC: 0DB98ZX Excision of Duodenum, Via Natural or Artificial Opening Endoscopic, Diagnostic (ICD-10-PCS; principal; 2025-06-02 14:26)
DX: K22.10 Ulcer of esophagus without bleeding (principal); N17.0 Acute kidney failure with tubular necrosis; E87.0 Hyperosmolality and hypernatremia; K29.80 Duodenitis without bleeding; D50.9 Iron deficiency anemia, unspecified; E11.22 Type 2 diabetes mellitus with diabetic chronic kidney disease; E03.9 Hypothyroidism, unspecified; N18.9 Chronic kidney disease, unspecified; F31.9 Bipolar disorder, unspecified; E86.0 Dehydration; E87.6 Hypokalemia; K29.70 Gastritis, unspecified, without bleeding; K44.9 Diaphragmatic hernia without obstruction or gangrene; E78.5 Hyperlipidemia, unspecified; K21.00 Gastro-esophageal reflux disease with esophagitis, without bleeding; Z86.73 Personal history of transient ischemic attack (TIA), and cerebral infarction without residual deficits; I25.2 Old myocardial infarction; Z90.710 Acquired absence of both cervix and uterus; Z90.49 Acquired absence of other specified parts of digestive tract; Z98.84 Bariatric surgery status; Z88.8 Allergy status to other drugs, medicaments and biological substances; Z79.899 Other long term (current) drug therapy
CPT/HCPCS: 36415; 43239; 71045; 74018; 74176; 80048; 80053; 81001; 82962; 83036; 83690; 83735; 84132; 84443; 85014; 85018; 85025; 85610; 85730; 86803; 86850; 86900; 86901; 87340; 93005; 96365; 96375; G0378; J1815; J2003; J2250; J2405; J2470; J3480

== ENCOUNTER 2025-06-17 15:24 | Inpatient (IN) | payer BC, OTHER ==
[~2025-06-17] VITALS: Ht 168.9 cm; Wt 81.4 kg
[2025-06-17] MEDS: SODIUM CHLORIDE 0.9% 1,000 ML IV SCH (06:00)
[~2025-06-17 15:24] MED LIST changes: +PANT-62 PO; +POTA-180 PO; +SUCR1SUS26 PO; +ZOFR4T PO
--- NOTE | 2025-06-17 15:52 | ED.PDOC ---
GI ASSESSMENT HPI Comments 70 year old female with PMHx HTN, HLD, thyroid disease, peptic ulcer, pancreatitis presents to the ED with a chief complaint of abdominal pain onset 5 days. Patient has been experiencing diffused abdominal pain for the past 5 days, was discharged from [facility] on 06/04/25, was admitted for peptic ulcer. Patient states pain worsened today, currently rates pain 10/10. Denies nausea, vomiting, diarrhea, headache, dizziness, fever, chills, dysuria, hematuria, hematemesis. No other symptoms or modifying factors present at this time. Chief Complaint: Abdominal Pain Time Seen by MD: 15:45 Primary Care Provider: DANTE Reviewed Notes: Nurses Notes, Medications, Allergies Allergies: Coded Allergies: Prochlorperazine (Verified Allergy, Unknown, 01/01/22) Home Meds Active Scripts Potassium Chloride (Potassium Chloride ER) 20 Meq Tab, 20 MEQ PO DAILY for 3 Days, #3 TAB Prov:QUYNH DUNCAN RESIDENT 06/05/25 Ondansetron Odt 4MG Tab (ZOFRAN PO) 4 Mg Tb, 4 MG PO TID PRN for 7 Days, #21 TAB ODT TAB-DISSOLVE IN MOUTH, THEN SWALLOW Prov:QUYNH DUNCAN RESIDENT 06/03/25 Pantoprazole Sodium Sesquihydr (Pantoprazole Sodium Dr) 40 Mg Tab, 40 MG PO BID for 30 Days, #60 TAB Prov:QUYNH DUNCAN RESIDENT 06/03/25 Sucralfate (CARAFATE SUSP) 1 Gm/10 Ml Ss, 1 GM PO QID@0600,1130,1700,2200 for 30 Days, #1 BOTTLE Prov:QUYNH DUNCAN RESIDENT 06/03/25 Sulfamethoxazole W/Trimethopri (Bactrim Ds Tablet) 1 Tab Tb, 1 TAB PO BID, #10 TAB Prov:LITO OHARA MD 12/04/22 Docusate Sodium (Colace) 100 Mg Cap, 100 MG PO DAILY PRN MDD Constipation, #30 MG Prov:LITO OHARA MD 12/04/22 Ferrous Sulfate (Ferrous Sulfate) 325 Mg Tab, 325 MG PO TIDWMEALS, #90 MG Prov:LITO OHARA MD 12/04/22 Pantoprazole Sodium Sesquihydr (Protonix) 40 Mg Tab, 40 MG PO BID, #60 TAB Prov:LITO OHARA MD 01/05/22 Reported Medications Pregabalin (Pregabalin) 100 Mg Cap, 1 CAP PO TID 12/02/22 Eszopiclone (Lunesta) 2 Mg Tab, 1 TAB PO QHSP PRN for INSOMNIA 12/02/22 Levothyroxine Sodium (Levothyroxine Sodium) 25 Mcg Tab, 1 TAB PO DAILY 12/02/22 Mirtazapine (REMERON) 30 Mg Tab, 1 TAB PO 12/02/22 Olanzapine (Zyprexa) 10 Mg Tab, 1 TAB PO 12/02/22 Information Source: Patient Mode of Arrival: Wheelchair Timing: Days Duration: Since onset Prehospital treatment: None Quality: Sharp Vomitus: None Severity: Moderate Recent: None Recent Hx of: None Pain Location: Diffuse Modifying Factors: Nothing Associated sign and symptoms: Abdominal Pain Past Medical History PAST MEDICAL HISTORY: CVA, High Lipids, HTN, [place], Thyroid Past Medical History (Other): peptic ulcer, pancreatitis Surgical History: Cholecystectomy, Hysterectomy [employer] History: Denies all [employer] Hx Family History Family History: Reviewed,noncontributory to illness Social History Smoker: Non-Smoker Alcohol: Occasionally Drugs: Marijuana Lives In: Home Constitutional: reports: others (generalized body pain); denies: chills, diaphoresis, fatigue, fever, malaise, sweats, weakness EENTM: denies: blurred vision, double vision, ear bleeding, ear discharge, ear drainage, ear pain, ear ringing, eye pain, eye redness, hearing loss, mouth pain, mouth swelling, nasal discharge, nose bleeding, nose congestion, nose pain, photophobia, tearing, throat pain, throat swelling, voice changes, others Respiratory: denies: cough, hemoptysis, orthopnea, SOB at rest, shortness of breath, SOB with excertion, stridor, wheezing, others Cardiovascular: denies: chest pain, dizzy spells, diaphoresis, Dyspnea on exertion, edema, irregular heart beat, left arm pain, lightheadedness, palpitations, PND, syncope, others Gastrointestinal: reports: abdominal pain; denies: abdomen distended, blood streaked bowels, constipated, diarrhea, dysphagia, difficulty swallowing, hematemesis, melena, nausea, poor appetite, poor fluid intake, rectal bleeding, rectal pain, vomiting, others Genitourinary: denies: abnormal vagina bleeding, burning, dyspareunia, dysuria, flank pain, frequency, hematuria, incontinence, pain, , vagina discharge, urgency, others Neurological: denies: dizziness, fainting, headache, left sided numbness, left sided weakness, numbness, paresthesia, pre-existing deficit, right sided numbness, right sided weakness, seizure, speech problems, tingling, tremors, weakness, others Musculoskeletal: denies: back pain, gout, joint pain, joint swelling, muscle pain, muscle stiffness, neck pain, others Integumetry: denies: bruises, change in color, change in hair/nails, dryness, laceration, lesions, lumps, rash, wounds, others Allergic/Immunocompromised: denies: Difficulty Healing, Frequent Infections, Hives, Itching, others Hematologic/Lymphatic: denies: anemia, blood clots, easy bleeding, easy bruising, swollen glands, others Endocrine: denies: excessive hunger, excessive sweating, excessive thirst, excessive urination, flushing, intolerance to cold, intolerance to heat, unexplained weight gain, unexplained weight loss, others Psychiatric: denies: anxiety, bipolar disorder, depression, hopeless, panic disorder, schizophrenia, sleepless, suicidal, others All Other Systems: Reviewed and Negative Physical Exam General Appearance: Moderate Distress HEENT: Normal ENT Inspection, Pharynx Normal, TMs Normal Neck: Full Range of Motion, Non-Tender, Normal, Normal Inspection Respiratory: Chest Non-Tender, Lungs Clear, No Accessory Muscle Use, No Respiratory Distress, Normal Breath Sounds Cardiovascular: No Edema, No JVD, No Murmur, No Gallop, Normal Peripheral Pulses, Regular Rate/Rhythm Breast Exam: Deferred Gastrointestinal: Diffuse, No Organomegaly, No Pulsatile Mass, Normal Bowel Sounds, Soft, Tenderness Genitalia: Deferred Pelvic: Deferred Rectal: Deferred Extremities: No calf tenderness, Normal capillary refill, Normal inspection, Normal range of motion, Non-tender, No pedal edema Musculoskeletal : Apperance: Normal Neurologic: Alert, bridge inspector II-XII nml as Tested, Motor Weakness, Normal Affect, Normal Mood, No Sensory Deficits Cerebellar Function: Normal Reflexes: Normal Skin: Dry, Normal Color, Warm Lymphatic: No Adenopathy Was a procedure done? Was a procedure done?: No GI differential Dx Differential Diagnosis: Appendicitis, Gastritis/PUD, Gastroenteritis, Ischemic Bowel, Pancreatitis, UTI, Electrolyte Imbalance, Food Poisoning X-Ray, Labs, Meds, VS Vital Signs Date Time Temp Pulse Resp B/P (MAP) Pulse Ox O2 Delivery O2 Flow Rate FiO2 06/17/25 15:26 97.6 90 18 135/90 98 97.6 Lab Test 06/17/25 16:23 Range/Units White Blood Count 4.4 4.4-10.8 10^3/uL Red Blood Count 4.60 4.0-5.20 10^6/uL Hemoglobin 12.8 12.2-16.2 g/dL Hematocrit 39.4 36.0-46.0 % Mean Corpuscular Volume 85.8 80.0-100.0 fL Mean Corpuscular Hemoglobin 27.9 L 28.0-32.0 pg Mean Corpuscular Hemoglobin Concent 32.6 32.0-36.0 g/dL Red Cell Distribution Width 15.7 H 11.8-14.3 % Platelet Count 335 140-450 10^3/uL Mean Platelet Volume 7.8 6.9-10.8 fL Neutrophils (%) (Auto) 69.2 37.0-80.0 % Lymphocytes (%) (Auto) 23.4 10.0-50.0 % Monocytes (%) (Auto) 5.9 0.0-12.0 % Eosinophils (%) (Auto) 0.9 0.0-7.0 % Basophils (%) (Auto) 0.6 0.0-2.0 % Neutrophils # (Auto) 3.0 1.6-8.6 10 ^3/uL Lymphocytes # (Auto) 1.0 0.4-5.4 10 ^3/uL Monocytes # (Auto) 0.3 0-1.3 10 ^3/uL Eosinophils # (Auto) 0 0-0.8 10 ^3/uL Basophils # (Auto) 0 0-0.2 10 ^3/uL Nucleated Red Blood Cells 0.2 % Sodium Level 137 136-145 mmol/L Potassium Level 3.1 L 3.5-5.1 mmol/L Chloride Level 100 98-107 mmol/L Carbon Dioxide Level 22 20-31 mmol/L Anion Gap 15 5-15 Blood Urea Nitrogen 7 L 9-23 mg/dL Creatinine 0.93 0.550-1.02 mg/dL Glomerular Filtration Rate Calc 66 >90 mL/min BUN/Creatinine Ratio 7.5 L 10.0-20.0 Serum Glucose 110 H 74-106 mg/dL Calcium Level 9.1 8.7-10.4 mg/dL Total Bilirubin 0.4 0.2-1.0 mg/dL Aspartate Amino Transferase (AST) 16 13-40 U/L Alanine Aminotransferase (ALT) 12 7-40 U/L Alkaline Phosphatase 84 46-116 U/L Total Protein 8.0 5.7-8.2 g/dL Albumin 4.0 3.2-4.8 g/dL Lipase 24 12-53 U/L IMPRESSION: 1. No acute abdominopelvic abnormality. 2. Incidental findings as detailed. At this time, the patient is being admitted to the hospitalist The patient's CBC is within normal limits The chemistry panel shows hypokalemia The patient was given potassium IV piggyback 20 mEq The patient is being admitted Images Reviewed?: Images reviewed and evaluated by me Time of 1ST Reevaluation: 16:15 Reevaluation 1ST: Unchanged Patient Education/Counseling: Diagnosis, Treatment, Prognosis Family Education/Counseling: No Family Present SEPSIS Sepsis Screen Date sepsis recognized/suspect: Jun 17, 2025 Time Sepsis recognized/suspect: 1528 Recent Procedure: No (N) On Antibiotic Therapy: No Respiratory Rate >20: No Heart Rate >90: No Temp<36 C (96.8 F) or >38.3 C: No SBP <90 or MAP <65 mmHG: No New Acute Mental Status Change: No Is the patient on CPAP, BIPAP,: No Physician Orders Urinalysis (06/17/25 15:49) Ct Ab Pel Wo Con-No Oral Or Iv (06/17/25 15:49) Heplock Iv (06/17/25 15:49) Shaft Sinker (06/17/25 15:49) Blood Pressure (06/17/25 15:49) Pulse Oximetry (06/17/25 15:49) Drug Screen (06/17/25 15:49) Potassium Chl Sean Kcl (06/17/25 17:15) Vital Signs Date Time Temp Pulse Resp B/P (MAP) Pulse Ox O2 Delivery O2 Flow Rate FiO2 06/17/25 15:26 97.6 90 18 135/90 98 97.6 Laboratory Tests Test 06/17/25 16:23 White Blood Count 4.4 10^3/uL (4.4-10.8) Departure 1 Departure Time of Disposition: 17:09 Impression: Primary Impression: Intractable abdominal pain Disposition: ADMITTED INPATIENT Admit to: Med Surg Condition: Fair Critical Care Note Critical Care Time?: No Stability Stability form required: Yes Unstable for transfer: ED Physician Assesment (Clinical assesment) Heart Score Heart Score: Heart Score Response (Comments) Value History N/A 0 EKG N/A 0 Age N/A 0 Risk Factors N/A 0 Troponin N/A 0 Total 0 I personally scribed for JAYLEEN JACOB MD ([email or web address]) on 06/17/25 at 15:52. Electronically submitted by Monserrat Huynh ([email or web address]). I personally scribed for JAYLEEN JACOB MD ([email or web address]) on 06/17/25 at 16:54. Electronically submitted by Monserrat Huynh ([email or web address]). JAYLEEN JACOB MD Jun 17, 2025 15:52
--- NOTE | 2025-06-17 16:43 | DVH ---
EXAM: CT CT AB PEL WO CON-NO ORAL OR IV HISTORY: pain COMPARISON STUDY: CT CT AB PEL WO CON-NO ORAL OR IV on DOS: 06/01/25, CT CT AB PEL WO CON-NO ORAL OR IV on DOS: 03/18/25, [facility] on DOS: 01/02/22, [facility] on DOS: 01/02/22 TECHNIQUE: Multidetector CT of the abdomen and pelvis was performed from lung bases to pubic symphysis. Imaging was performed without IV contrast. Axial, coronal, and sagittal multiplanar reformats were obtained from the axial data set by the technologist. RADIATION DOSE: CTDI vol 10.6 mGy. DLP 621.6 mGy.cm FINDINGS: Limited evaluation of the solid organs in the absence of IV contrast. Lungs: Basilar atelectasis/scarring. Liver: Unremarkable. Spleen: Unremarkable. Pancreas: Unremarkable. Gallbladder: Prior cholecystectomy. Adrenals: Unremarkable Kidneys: Unremarkable. Pelvic Viscera: Prior hysterectomy. Vasculature: Minimal atherosclerotic vascular calcification. Retroperitoneum: Unremarkable. Bowel: Portions of the bowel are decompressed, limiting assessment. There is submucosal fat deposition which may reflect chronic inflammation. No bowel obstruction. Musculoskeletal: Unremarkable. Soft tissues: Unremarkable IMPRESSION: 1. No acute abdominopelvic abnormality. 2. Incidental findings as detailed.
[2025-06-17 16:47] LABS: Hematocrit 39.4 % (36.0-46.0); Hemoglobin 12.8 g/dL (12.2-16.2); Mean Corpuscular Hemoglobin 27.9 pg (28.0-32.0); Mean Corpuscular Volume 85.8 fL (80.0-100.0); Nucleated Red Blood Cells % 0.2 %
[2025-06-17 17:01] LABS: Alanine Aminotransferase 12 U/L (7-40); Albumin 4.0 g/dL (3.2-4.8); Alkaline Phosphatase 84 U/L (46-116); Anion Gap 15 (5-15); BUN/Creatinine Ratio 7.5 (10.0-20.0); Calcium 9.1 mg/dL (8.7-10.4); Carbon Dioxide 22 mmol/L (20-31); Chloride 100 mmol/L (98-107); Lipase 24 U/L (12-53); Sodium 137 mmol/L (136-145); Total Protein 8.0 g/dL (5.7-8.2)
[2025-06-17 17:02] LABS: Bilirubin, Total 0.4 mg/dL (0.2-1.0)
[2025-06-17 17:04] LABS: Blood Urea Nitrogen 7 mg/dL (9-23); Glucose 110 mg/dL (74-106); Potassium 3.1 mmol/L (3.5-5.1)
[2025-06-17] MEDS ORDERED: ACETAMINOPHEN 325 MG TAB PO PRN (19:30)
[2025-06-17] MEDS ORDERED: NITROGLYCERIN 0.4 MG SL TAB SL PRN (19:30)
--- NOTE | 2025-06-17 19:31 | DVHHP2 ---
Admitting Diagnosis: Abdominal Pain History of Present Illness 70 yo female with hx of HTN, HLD, Thyroid disease, peptic ulcer, and pancreatitis c/o diffuse abdominal pain x 5 days. Patient was admitted on 06/04 for peptic ulcer and states that her pain is now worse. While in the emergency department the patient was evaluated by the provider, As per provider: Labs, vital signs, and imagining monitored. Patient will be admitted for further evaluation and treatment. I discussed admission with the patient/family and is in agreement to treatment plan. Patient Family History: Diabetes mellitus G8 MOTHER FH: obesity G8 FATHER, Pacemaker G8 MOTHER Allergies: Coded Allergies: Prochlorperazine (Verified Allergy, Unknown, 01/01/22) Home Meds Active Scripts Potassium Chloride (Potassium Chloride ER) 20 Meq Tab, 20 MEQ PO DAILY for 3 Days, #3 TAB Prov:QUYNH DUNCAN RESIDENT 06/05/25 Ondansetron Odt 4MG Tab (ZOFRAN PO) 4 Mg Tb, 4 MG PO TID PRN for 7 Days, #21 TAB ODT TAB-DISSOLVE IN MOUTH, THEN SWALLOW Prov:QUYNH DUNCAN RESIDENT 06/03/25 Pantoprazole Sodium Sesquihydr (Pantoprazole Sodium Dr) 40 Mg Tab, 40 MG PO BID for 30 Days, #60 TAB Prov:QUYNH DUNCAN RESIDENT 06/03/25 Sucralfate (CARAFATE SUSP) 1 Gm/10 Ml Ss, 1 GM PO QID@0600,1130,1700,2200 for 30 Days, #1 BOTTLE Prov:QUYNH DUNCAN RESIDENT 06/03/25 Sulfamethoxazole W/Trimethopri (Bactrim Ds Tablet) 1 Tab Tb, 1 TAB PO BID, #10 TAB Prov:LITO OHARA MD 12/04/22 Docusate Sodium (Colace) 100 Mg Cap, 100 MG PO DAILY PRN MDD Constipation, #30 MG Prov:LITO OHARA MD 12/04/22 Ferrous Sulfate (Ferrous Sulfate) 325 Mg Tab, 325 MG PO TIDWMEALS, #90 MG Prov:LITO OHARA MD 12/04/22 Pantoprazole Sodium Sesquihydr (Protonix) 40 Mg Tab, 40 MG PO BID, #60 TAB Prov:LITO OHARA MD 01/05/22 Reported Medications Levothyroxine Sodium (Levothyroxine Sodium) 25 Mcg Tab, 1 TAB PO QAM 06/18/25 Pregabalin (Pregabalin) 100 Mg Cap, 1 CAP PO TID 12/02/22 Eszopiclone (Lunesta) 2 Mg Tab, 1 TAB PO QHSP PRN for INSOMNIA 12/02/22 Levothyroxine Sodium (Levothyroxine Sodium) 25 Mcg Tab, 1 TAB PO DAILY 12/02/22 Mirtazapine (REMERON) 30 Mg Tab, 1 TAB PO 12/02/22 Olanzapine (Zyprexa) 10 Mg Tab, 1 TAB PO 12/02/22 Current Medications Current Medications Medications (Trade) Dose Ordered Sig/Chela Route PRN Reason Start Time Stop Time Status Last Admin Acetaminophen/ Hydrocodone Bitart (Stickney 5/325MG Tab) 1 tab Q4HP PRN PO MODERATE PAIN (4-6 PAIN SCALE) 06/17/25 19:30 Ondansetron HCl (Zofran) 4 mg Q4HP PRN IV NAUSEA / VOMITING 06/17/25 19:30 Enoxaparin Sodium (Lovenox) 40 mg DAILY SC 06/18/25 10:00 06/18/25 13:01 Acetaminophen (Tylenol Tablet) 650 mg Q6HP PRN PO PAIN SCALE 1-3 OR TEMP>100.4 06/17/25 19:30 Sodium Chloride 1,000 ml @ 75 mls/hr [id number] IV 06/17/25 19:30 06/18/25 08:50 Pantoprazole Sodium (Protonix) 40 mg BID IV 06/17/25 22:00 06/18/25 13:01 Nitroglycerin (Ntrostat Sublingual) 0.4 mg Q5MINP PRN SL FOR CHEST PAIN 06/17/25 19:30 Morphine Sulfate 2 mg Q30M PRN IV FOR CHEST PAIN 06/17/25 19:30 Sucralfate (Carafate Susp) 1 gm QID@0600,1130,1700,2200 GT 06/18/25 17:30 Ferrous Sulfate 325 mg TIDWMEALS PO 06/18/25 18:00 Levothyroxine Sodium (Synthroid Tablet) 25 mcg QAM PO 06/19/25 07:00 Mirtazapine (Remeron Tablet) 30 mg DAILY PO 06/19/25 10:00 Review of Systems Constitutional: denies chills, denies fever, denies malaise Eyes: denies eye pain, denies vision change ENT: denies ear pain, denies headache, denies nasal congestion, denies painful swallowing, denies voice change Cardiovascular: denies chest pain, denies edema, denies orthopnea, denies palpitations, denies paroxysmal nocturnal dyspnea Respiratory: denies cough, denies shortness of breath Gastrointestinal: denies constipation, denies diarrhea, denies nausea, denies vomiting Genitourinary: denies dysuria, denies frequent urination, denies urethral discharge Musculoskeletal: denies back pain, denies joint pain, denies muscle pain Skin: denies bruising, denies itching, denies rash Neurological: denies focal weakness, denies headache, denies sensory changes Psychiatric: denies anxiety, denies depression Endocrine: denies polydipsia, denies polyuria Hematologic/Lymphatic: denies easy bleeding, denies easy bruising, denies enlarged lymph nodes Allergic/Immunologic: denies allergy, denies hives Vital Signs Vital Signs Date Time Temp Pulse Resp B/P (MAP) Pulse Ox O2 Delivery O2 Flow Rate FiO2 06/18/25 18:38 99.0 84 18 120/88 (99) 95 99.0 06/18/25 18:38 Room Air* 0 21 Physical Exam General Appearance: alert, no distress HEENT: EOMI, PERRLA, normal external inspect of ears, no icterus, no nasal drainage Neck: no carotid bruit, no jugular venous distention (JVD), no lymphadenopathy Chest: normal thorax Respiratory: clear to auscultation, normal air movement Cardiovascular: regular rate and rhythm, no diastolic murmur, no jugular venous distention (JVD), no rub, no systolic murmur Abdominal: soft, no hepatomegaly, no mass, no splenomegaly, no tenderness Genitourinary: grossly normal external Musculoskeletal: no joint tenderness, no swelling Extremities: normal pulses, no calf tenderness, no clubbing, no cyanosis, no edema Skin: no bruising, no jaundice, no rash Neurological: alert, No focal deficit SEPSIS Sepsis Screen Date sepsis recognized/suspect: Jun 17, 2025 Time Sepsis recognized/suspect: 1528 Recent Procedure: No (N) On Antibiotic Therapy: No Respiratory Rate >20: No Heart Rate >90: No Temp<36 C (96.8 F) or >38.3 C: No SBP <90 or MAP <65 mmHG: No New Acute Mental Status Change: No Is the patient on CPAP, BIPAP,: No Physician Orders Urinalysis (06/17/25 15:49) Ct Ab Pel Wo Con-No Oral Or Iv (06/17/25 15:49) Heplock Iv (06/17/25 15:49) Embroidery Machine Operator (06/17/25 15:49) Blood Pressure (06/17/25 15:49) Pulse Oximetry (06/17/25 15:49) Drug Screen (06/17/25:49) Admit (06/17/25:) Code Status (06/17/25:) Hydrocodone-Acet 5/325mg Tab (Stickney 5/32 (06/17/25 19:30) Ondansetron Hcl (Zofran) (06/17/25 19:30) Enoxaparin Sodium (Lovenox) (06/18/25 10:00) Condition: Fair (06/17/25:) Acetaminophen Tablet (Tylenol Tablet) (06/17/25:30) Sequential Compression Device (06/17/25 ) Sodium Chloride 0.9% (06/17/25 19:30) Pantoprazole (Protonix) (06/17/25 22:00) Nitroglycerin Sublingual (Ntrostat Subli (06/17/25:30) Stat Ekg For Chest Pain (06/17/25:27) Notify Md Of Changes From Base (06/17/25:) Registered Medical Assistant For 24 Hours (06/17/25:) Emergency Dysrhythmia Protocol (06/17/25:) Rhythm Strips Once Every Shift (06/17/25:27) Oxygen By Nasal Cannula (06/17/25:27) Morphine Sulfate Injection (06/17/25 19:30) Soft Diet (06/18/25 Lunch) Sucralfate Susp (Carafate Susp) (06/18/25 17:30) Ferrous Sulfate Tablet (06/18/25 18:00) Levothyroxine Tablet (Synthroid Tablet) (06/19/25 07:00) Mirtazapine Tablet (Remeron Tablet) (06/19/25 10:00) * Gi Dvh Elevator Attendant (06/18/25 18:51) Vital Signs Date Time Temp Pulse Resp B/P (MAP) Pulse Ox O2 Delivery O2 Flow Rate FiO2 06/18/25 18:38 99.0 84 18 120/88 (99) 95 99.0 06/18/25 18:38 Room Air* 0 21 06/18/25 07:42 89 13 Room Air* 0 06/18/25 07:42 99.0 89 13 136/81 (99) 99.0 06/18/25 06:58 87 14 127/85 (99) 95 06/18/25 06:00 97.9 88 18 128/80 (96) 97 97.9 06/18/25 05:39 76 16 122/66 06/18/25 05:19 98 Room Air* 0 06/18/25 05:09 94 19 140/91 06/18/25 03:50 91 26 122/66 (84) 97 06/18/25 00:49 101 16 121/77 (92) 97 06/17/25 15:26 97.6 90 18 135/90 98 97.6 Laboratory Tests Test 06/17/25 16:23 06/18/25 06:21 White Blood Count 4.4 10^3/uL (4.4-10.8) 4.3 10^3/uL (4.4-10.8) L Medications Medications Dose Ordered Sig/Chela Route Start Time Stop Time Status Last Admin Dose Admin Enoxaparin Sodium 40 mg DAILY SC 06/18/25 10:00 06/18/25 13:01 Potassium Chloride 60 meq ONCE ONCE PO 06/18/25 12:15 06/18/25 12:21 DC 06/18/25 13:02 Results Labs Test 06/18/25 06:21 06/17/25 16:23 Range/Units White Blood Count 4.3 L 4.4-10.8 10^3/uL Red Blood Count 4.25 4.0-5.20 10^6/uL Hemoglobin 11.6 L 12.2-16.2 g/dL Hematocrit 36.4 36.0-46.0 % Mean Corpuscular Volume 85.7 80.0-100.0 fL Mean Corpuscular Hemoglobin 27.3 L 28.0-32.0 pg Mean Corpuscular Hemoglobin Concent 31.9 L 32.0-36.0 g/dL Red Cell Distribution Width 15.5 H 11.8-14.3 % Platelet Count 304 140-450 10^3/uL Mean Platelet Volume 7.7 6.9-10.8 fL Neutrophils (%) (Auto) 62.1 37.0-80.0 % Lymphocytes (%) (Auto) 26.7 10.0-50.0 % Monocytes (%) (Auto) 10.7 0.0-12.0 % Eosinophils (%) (Auto) 0.2 0.0-7.0 % Basophils (%) (Auto) 0.3 0.0-2.0 % Neutrophils # (Auto) 2.7 1.6-8.6 10 ^3/uL Lymphocytes # (Auto) 1.1 0.4-5.4 10 ^3/uL Monocytes # (Auto) 0.5 0-1.3 10 ^3/uL Eosinophils # (Auto) 0 0-0.8 10 ^3/uL Basophils # (Auto) 0 0-0.2 10 ^3/uL Nucleated Red Blood Cells 0.2 % Sodium Level 138 136-145 mmol/L Potassium Level 2.9 L 3.5-5.1 mmol/L Chloride Level 101 98-107 mmol/L Carbon Dioxide Level 21 20-31 mmol/L Anion Gap 16 H 5-15 Blood Urea Nitrogen 7 L 9-23 mg/dL Creatinine 0.83 0.550-1.02 mg/dL Glomerular Filtration Rate Calc 75 >90 mL/min BUN/Creatinine Ratio 8.4 L 10.0-20.0 Serum Glucose 103 74-106 mg/dL Calcium Level 8.4 L 8.7-10.4 mg/dL Total Bilirubin 0.4 0.2-1.0 mg/dL Aspartate Amino Transferase (AST) 18 13-40 U/L Alanine Aminotransferase (ALT) 14 7-40 U/L Alkaline Phosphatase 79 46-116 U/L Total Protein 7.0 5.7-8.2 g/dL Albumin 3.7 3.2-4.8 g/dL Lipase 24 12-53 U/L Plan 1. Intractable nausea and vomiting Monitor, prn antiemetics, GI consult, carafate 2. Gastritis and esophagitis Monitor, GI consult 3. Hypothyroid Monitor, restart synthroid 4. GERD Monitor, small meals, PPI 5. Hypogastric bypass surgery 1982 Monitor, GI consult Plan discussed with: Patient, Other PHIL CARROLL NP Jun 17, 2025 19:31
[2025-06-18] MEDS: PANTOPRAZOLE 40 MG/10 ML VIAL INJ IV ONE (05:03)
[2025-06-18] MEDS: ONDANSETRON HCL 4 MG/2 ML VIAL IV ONE (05:08)
[2025-06-18] MEDS: PANTOPRAZOLE 40 MG/10 ML VIAL INJ IV SCH (05:08)
[2025-06-18] MEDS: MORPHINE SULFATE 4 MG/ML SYR/VIAL IV ONE (05:09)
[2025-06-18] MEDS: SODIUM CHLORIDE 0.9% 500 ML IVB ONE (05:09)
[2025-06-18] MEDS: POTASSIUM CHL 20MEQ/100ML 100 ML IV ONE (05:11)
[2025-06-18 05:19] VITALS: O2SAT 98
[2025-06-18 06:50] LABS: Alanine Aminotransferase 14 U/L (7-40); Albumin 3.7 g/dL (3.2-4.8); Alkaline Phosphatase 79 U/L (46-116); Anion Gap 16 (5-15); BUN/Creatinine Ratio 8.4 (10.0-20.0); Bilirubin, Total 0.4 mg/dL (0.2-1.0); Carbon Dioxide 21 mmol/L (20-31); Chloride 101 mmol/L (98-107); Glucose 103 mg/dL (74-106); Sodium 138 mmol/L (136-145); Total Protein 7.0 g/dL (5.7-8.2)
[2025-06-18 06:52] LABS: Blood Urea Nitrogen 7 mg/dL (9-23); Calcium 8.4 mg/dL (8.7-10.4); Potassium 2.9 mmol/L (3.5-5.1)
[2025-06-18 06:54] LABS: Hematocrit 36.4 % (36.0-46.0); Hemoglobin 11.6 g/dL (12.2-16.2); Mean Corpuscular Hemoglobin 27.3 pg (28.0-32.0); Mean Corpuscular Volume 85.7 fL (80.0-100.0); Nucleated Red Blood Cells % 0.2 %
[2025-06-18 07:42] VITALS: PULSE 89; RESP 13
--- NOTE | 2025-06-18 09:59 | DVHPN2 ---
Progress Note - Dictate Date Seen: Jun 18, 2025 Medical Necessity Reason Pt with a Central, PICC or Fol: No vital signs Vital Sign Date Time Temp Pulse Resp B/P (MAP) Pulse Ox O2 Delivery O2 Flow Rate FiO2 06/18/25 06:58 87 14 127/85 (99) 95 06/18/25 06:00 97.9 97.9 06/18/25 05:19 Room Air* 0 21 Total Intake and Output 06/17/25 06/17/25 06/18/25 15:00 23:00 07:00 Intake Total 500 ml Balance 500 ml medications Current Medications Medications Dose Ordered Sig/Chela Route Start Time Stop Time Status Last Admin Dose Admin Acetaminophen/ Hydrocodone Bitart 1 tab Q4HP PRN PO 06/17/25 19:30 Ondansetron HCl 4 mg Q4HP PRN IV 06/17/25 19:30 Enoxaparin Sodium 40 mg DAILY SC 06/18/25 10:00 Acetaminophen 650 mg Q6HP PRN PO 06/17/25 19:30 Sodium Chloride 1,000 ml @ 75 mls/hr [id number] IV 06/17/25 19:30 06/18/25 08:50 75 MLS/HR Pantoprazole Sodium 40 mg BID IV 06/17/25 22:00 06/18/25 05:08 40 MG Nitroglycerin 0.4 mg Q5MINP PRN SL 06/17/25 19:30 Morphine Sulfate 2 mg Q30M PRN IV 06/17/25 19:30 objective General Appearance: alert, no distress HEENT: EOMI, PERRLA, normal external inspect of ears, no icterus, no nasal drainage Neck: no carotid bruit, no jugular venous distention (JVD), no lymphadenopathy Chest: normal thorax Respiratory: clear to auscultation, normal air movement Cardiovascular: regular rate and rhythm, no diastolic murmur, no jugular venous distention (JVD), no rub, no systolic murmur Abdominal: soft, no hepatomegaly, no mass, no splenomegaly, no tenderness Genitourinary: grossly normal external Musculoskeletal: no joint tenderness, no swelling Extremities: normal pulses, no calf tenderness, no clubbing, no cyanosis, no edema Skin: no bruising, no jaundice, no rash Neurological: alert, No focal deficit laboratory and microbiology Laboratory Tests 06/18/25 06:21 Test 06/18/25 06:21 Range/Units Serum Glucose 103 74-106 mg/dL Problem List 1. Intractable nausea and vomiting Monitor, prn antiemetics, GI consult, carafate 2. Gastritis and esophagitis Monitor, GI consult 3. Hypothyroid Monitor, restart synthroid 4. GERD Monitor, small meals, PPI 5. Hypogastric bypass surgery 1983 Monitor, GI consult Assessment/Plan Subjective: Patient is awake and alert. She reports ongoing abdominal pain. She states she was recently diagnosed with gastritis several weeks ago and picked up her prescribed Protonix and Carafate. She denies any new symptoms aside from her abdominal discomfort. Objective: Patient was admitted for abdominal pain. She has a recent history of gastritis. Current labs show hypokalemia. She is tolerating clear liquids. Plan: Replace electrolytes, including potassium. Continue Protonix and Carafate. Obtain GI consult. Advance diet from clear liquids to soft diet as tolerated. Monitor symptoms and labs. Plan discussed with: Patient, Other PHIL CARROLL NP Jun 18, 2025 09:59
[2025-06-18] MEDS: ENOXAPARIN SOD 40 MG/0.4 ML SYRINGE SC SCH (13:01)
[2025-06-18] MEDS: POTASSIUM CHL 20 Meq TABLET PO ONE (13:02)
[2025-06-18] MEDS ORDERED: LEVO25TA6 PO (17:27)
[2025-06-18 18:38] VITALS: BP 120/88; PULSE 84; RESP 18; TEMP 99; O2SAT 95
[2025-06-18 21:00] VITALS: BP 144/70; PULSE 61; RESP 18; TEMP 98.8; O2SAT 100
[2025-06-18] MEDS: SUCRALFATE 1 GM/10 ML ORAL SUSP GT SCH (21:37)
[2025-06-18] MEDS: MELATONIN 5 MG TAB PO ONE (23:20)
[2025-06-19] VITALS (9 sets, daily range): BP systolic 124–147; BP diastolic 60–81; PULSE 55–81; RESP 17–20; TEMP 98–99.8; O2SAT 95–99
[2025-06-19] MEDS: MORPHINE SULFATE 4 MG/ML SYR/VIAL IV PRN (01:24)
[2025-06-19] MEDS: ONDANSETRON HCL 4 MG/2 ML VIAL IV PRN (01:39)
[2025-06-19 02:28] LABS: Urine Protein, UAD Negative (Negative)
[2025-06-19 02:41] LABS: Opiate Scree,Urine Pos (NEGATIVE)
[2025-06-19 02:42] LABS: Cannabinoid Screen, Urine Pos (NEGATIVE)
[2025-06-19 02:45] LABS: Amphetamine Screen, Urine Neg (NEGATIVE); Barbiturate Scree,Urine Neg (NEGATIVE); Benzodiazephine Screen, Urine Neg (NEGATIVE); Cocaine Screen, Urine Neg (NEGATIVE); Phencyclidine Screen, Urine Neg (NEGATIVE)
[2025-06-19] MEDS: LEVOTHYROXINE SODIUM 25 MCG TAB PO SCH (06:45)
[2025-06-19] MEDS: FERROUS SULFATE 325mg EC TAB PO SCH (08:00)
[2025-06-19] MEDS: MIRTAZAPINE 30 MG TAB PO SCH (09:01)
[2025-06-19 13:44] LABS: Chloride 106 mmol/L (98-107); Sodium 142 mmol/L (136-145)
[2025-06-19 13:46] LABS: Anion Gap 11 (5-15); Calcium 8.7 mg/dL (8.7-10.4); Carbon Dioxide 25 mmol/L (20-31)
[2025-06-19 13:47] LABS: Potassium 3.3 mmol/L (3.5-5.1)
[2025-06-19 13:51] LABS: Glucose 92 mg/dL (74-106)
[2025-06-19 13:52] LABS: BUN/Creatinine Ratio 5.7 (10.0-20.0); Blood Urea Nitrogen < 5 mg/dL (9-23)
[2025-06-19] MEDS: HYDROcodone-ACET 5/325MG TAB PO PRN (14:15)
--- NOTE | 2025-06-19 14:17 | DVHINCON2 ---
GI Consult Consult Note GI consult note Date of Consultation: 06/19/2025 Chief Complaint: Abdominal pain Referring Physician: GLEN BOONE H&P: 70-year-old female with past medical history of hypertension, HLD, thyroid disease, peptic ulcers and pancreatitis admitted with complains of diffuse abdominal pain for the past five days. Patient says her pain is more like a discomfort at this time. Patient has nausea especially when eating food denies any vomiting. Bowel movement one day ago which was soft and dark brown in color. Patient admits to not feeling good when she ran out of her sleeping medications Status post EGD DATE OF OPERATION: 06/02/25 PROCEDURE: Upper Endoscopy with biopsy. PREOPERATIVE INDICATION: The patient is a 70 -year-old female undergoing endoscopy for nausea vomiting and coffee-ground emesis POSTOPERATIVE DIAGNOSES: 1. 2-3 cm sliding-type hiatal hernia with severe grade B to C linear erosive esophagitis with distal esophageal ulcers from which biopsies were obtained 2. Patient had midbody gastric narrowing likely due to gastric stapling 3. Mild to moderate linear antral gastritis and mild duodenitis 4. Otherwise normal examination up to the 2nd and 3rd part of the duodenum PROCEDURE PERFORMED BY: Fozia King Pathology shows mild chronic inactive gastritis Squamous mucosa showing acute esophagitis with ulceration Status post colonoscopy more than 10 years ago unsure about results Past Medical History: GERD, depression, bipolar disorder, hypothyroidism, gastric bypass 1983, insomnia Past Surgical History: Gastric bypass surgery, cholecystectomy, hysterectomy Social History: NO smoking, drinking ETOH Positive marijuana Family History: Noncontributory Review of Systems: Constitutional: no fever, chill, weight loss HEENT: no eye pain, no hearing loss, no oral lesion, no scleral icterus Heart: no chest pain, no chest pressure Lung: no cough, no dyspnea with exertion Abdomen: see HPI Physical exam: General: NAD, AAOX3 Chest: lung valdes clear to auscultation Heart: RRR, no murmur Abdomen: non-distended, no tenderness to palpation, +BS Labs: Labs Test 06/19/25 13:25 06/19/25 01:44 06/18/25 21:27 06/18/25 06:21 Range/Units Sodium Level 142 136-145 mmol/L Potassium Level 3.3 L 3.5-5.1 mmol/L Chloride Level 106 98-107 mmol/L Carbon Dioxide Level 25 20-31 mmol/L Anion Gap 11 5-15 Blood Urea Nitrogen < 5 L 9-23 mg/dL Creatinine 0.88 0.550-1.02 mg/dL Glomerular Filtration Rate Calc 70 >90 mL/min BUN/Creatinine Ratio 5.7 L 10.0-20.0 Serum Glucose 92 74-106 mg/dL Calcium Level 8.7 8.7-10.4 mg/dL Urine Color Yellow Yellow Urine Clarity Clear Clear Urine pH 6.5 5.0-9.0 Urine Specific [place] 1.014 1.001-1.035 Urine Protein Negative Negative Urine Ketones 1+ H Negative Urine Blood Negative Negative /uL Urine Nitrite Negative Negative Urine Bilirubin Negative Negative Urine Urobilinogen 2 H Negative mg/dL Urine Leukocyte Esterase Negative Negative /uL Urine RBC None seen 0 - 4 /hpf Urine Microscopic WBC 1 0-5 /HPF Urine Squamous Epithelial Cells Few <5 /hpf Urine Bacteria None seen None Seen /hpf Urine Mucus Few None Seen Urine Glucose Normal Normal mg/dL Urine Opiates Screen Pos NEGATIVE Urine Fentanyl Screen Neg NEGATIVE Urine Barbiturates Screen Neg NEGATIVE Urine Phencyclidine Screen Neg NEGATIVE Urine Amphetamines Screen Neg NEGATIVE Urine Benzodiazepines Screen Neg NEGATIVE Urine Cocaine Screen Neg NEGATIVE Urine Cannabinoids Screen Pos NEGATIVE POC Glucose 108 H 70-106 mg/dl White Blood Count 4.3 L 4.4-10.8 10^3/uL Red Blood Count 4.25 4.0-5.20 10^6/uL Hemoglobin 11.6 L 12.2-16.2 g/dL Hematocrit 36.4 36.0-46.0 % Mean Corpuscular Volume 85.7 80.0-100.0 fL Mean Corpuscular Hemoglobin 27.3 L 28.0-32.0 pg Mean Corpuscular Hemoglobin Concent 31.9 L 32.0-36.0 g/dL Red Cell Distribution Width 15.5 H 11.8-14.3 % Platelet Count 304 140-450 10^3/uL Mean Platelet Volume 7.7 6.9-10.8 fL Neutrophils (%) (Auto) 62.1 37.0-80.0 % Lymphocytes (%) (Auto) 26.7 10.0-50.0 % Monocytes (%) (Auto) 10.7 0.0-12.0 % Eosinophils (%) (Auto) 0.2 0.0-7.0 % Basophils (%) (Auto) 0.3 0.0-2.0 % Neutrophils # (Auto) 2.7 1.6-8.6 10 ^3/uL Lymphocytes # (Auto) 1.1 0.4-5.4 10 ^3/uL Monocytes # (Auto) 0.5 0-1.3 10 ^3/uL Eosinophils # (Auto) 0 0-0.8 10 ^3/uL Basophils # (Auto) 0 0-0.2 10 ^3/uL Nucleated Red Blood Cells 0.2 % Total Bilirubin 0.4 0.2-1.0 mg/dL Aspartate Amino Transferase (AST) 18 13-40 U/L Alanine Aminotransferase (ALT) 14 7-40 U/L Alkaline Phosphatase 79 46-116 U/L Total Protein 7.0 5.7-8.2 g/dL Albumin 3.7 3.2-4.8 g/dL Test 06/17/25 16:23 Range/Units Lipase 24 12-53 U/L Microbiology Date/Time Source Procedure Growth Status 06/18/25 23:25 Nose MRSA Screen - Final Complete Imaging: CT abdomen pelvis IMPRESSION: 1. No acute abdominopelvic abnormality. 2. Incidental findings as detailed. Assessment: Abdominal pain improving Nausea History of gastritis, esophagitis Insomnia Plan: Discussed with Dr. King Protonix and Carafate Zofran Monitor labs Recommend outpatient colonoscopy and follow-up in GI clinic Advance diet as tolerated Thank you for this consult Date of Service: Jun 19, 2025 Billing Provider: FANNY ARGUETA Common Visit Codes: [id number] INP/OBS CARE(HIGH), CONSULT ONLY Consultation Codes: [id number] CONSULT <60MIN FANNY ARGUETA Jun 19, 2025 14:17
--- NOTE | 2025-06-19 17:20 | DVHPN2 ---
Subjective no nausea today Reviewed: H&P Changes from previous H/P or p: No Changes Objective Vitals Vital Signs Date Time Temp Pulse Resp B/P (MAP) Pulse Ox O2 Delivery O2 Flow Rate FiO2 06/19/25 16:36 98.0 78 20 145/70 (95) 96 98.0 06/19/25 07:30 Room Air* 0 21 Intake/Output Intake and Output 06/19/25 05:00 Intake Total 1533 ml Balance 1533 ml Intake Oral 958 ml IV Total 575 ml # Voids 2 General Appearance: Alert, Oriented X3 HEENT: Atraumatic Lungs: Clear to auscultation Cardiovascular: Regular rate, Normal S1 Medications Current Medications Medications Dose Ordered Sig/Chela Route Start Time Stop Time Status Last Admin Dose Admin Acetaminophen/ Hydrocodone Bitart 1 tab Q4HP PRN PO 06/17/25 19:30 06/19/25 14:15 1 TAB Ondansetron HCl 4 mg Q4HP PRN IV 06/17/25 19:30 06/19/25 14:10 4 MG Enoxaparin Sodium 40 mg DAILY SC 06/18/25 10:00 06/19/25 09:08 40 MG Acetaminophen 650 mg Q6HP PRN PO 06/17/25 19:30 Sodium Chloride 1,000 ml @ 75 mls/hr [id number] IV 06/17/25 19:30 06/19/25 11:30 75 MLS/HR Pantoprazole Sodium 40 mg BID IV 06/17/25 22:00 06/19/25 09:01 40 MG Nitroglycerin 0.4 mg Q5MINP PRN SL 06/17/25 19:30 Morphine Sulfate 2 mg Q30M PRN IV 06/17/25 19:30 06/19/25 01:24 2 MG Sucralfate 1 gm QID@0600,1130,1700,2200 GT 06/18/25 17:30 06/19/25 14:05 1 GM Ferrous Sulfate 325 mg TIDWMEALS PO 06/18/25 18:00 06/19/25 14:05 325 MG Levothyroxine Sodium 25 mcg QAM PO 06/19/25 07:00 06/19/25 06:45 25 MCG Mirtazapine 30 mg DAILY PO 06/19/25 10:00 06/19/25 09:01 30 MG Laboratory Results Laboratory Tests 06/18/25 06:21 06/19/25 13:25 Chemistry Test 06/19/25 13:25 Calcium Level 8.7 mg/dL (8.7-10.4) Urinalysis Test 06/19/25 01:44 Urine Color Yellow (Yellow) Urine Clarity Clear (Clear) Urine pH 6.5 (5.0-9.0) Urine Specific [place] 1.014 (1.001-1.035) Urine Protein Negative (Negative) Urine Ketones 1+ (Negative) H Urine Blood Negative /uL (Negative) Urine Nitrite Negative (Negative) Urine Bilirubin Negative (Negative) Urine Urobilinogen 2 mg/dL (Negative) H Urine Leukocyte Esterase Negative /uL (Negative) Urine RBC None seen /hpf (0 - 4) Urine Microscopic WBC 1 /HPF (0-5) Urine Squamous Epithelial Cells Few /hpf (<5) Urine Bacteria None seen /hpf (None Seen) Urine Mucus Few (None Seen) Urine Glucose Normal mg/dL (Normal) Microbiology Microbiology Date/Time Source Procedure Growth Status 06/18/25 23:25 Nose MRSA Screen - Final Complete Assessment/Plan Assessment/Plan Intractable nausea and vomiting Monitor, prn antiemetics, GI consult, carafate Gastritis and esophagitis Monitor, GI consult Carafate and PPI Advance diet Hypokalemia replaced today Hypothyroid Monitor, restart synthroid GERD Monitor, small meals, PPI Hypogastric bypass surgery 1983 Monitor, GI consult Plan discussed with: Patient My Orders Orders - NASIMA AVILA MD Procedure Category Date Status Time Potassium Chloride PHA 06/19/25 In Process (Potassium Chloride). 15:30 Date of Service: Jun 19, 2025 Billing Provider: NASIMA AVILA MD Common Visit Codes: [id number] INP/OBS CARE(HIGH) NASIMA AVILA MD Jun 19, 2025 17:19
[2025-06-19] MEDS: POTASSIUM CHLORIDE 60 MEQ, LIDOCAINE 1% (LOCAL ANESTH.) 6 ML in SODIUM CHL 0.9% 500 ML IV ONE (17:50)
[2025-06-20] VITALS (7 sets, daily range): BP systolic 113–140; BP diastolic 61–92; PULSE 54–67; RESP 16–17; TEMP 97.9–99.1; O2SAT 94–96
[2025-06-20 09:58] LABS: Sodium 144 mmol/L (136-145)
[2025-06-20 09:59] LABS: Anion Gap 11 (5-15); Carbon Dioxide 24 mmol/L (20-31); Chloride 109 mmol/L (98-107); Potassium 3.4 mmol/L (3.5-5.1)
[2025-06-20 10:00] LABS: Calcium 8.4 mg/dL (8.7-10.4)
[2025-06-20 10:04] LABS: Glucose 101 mg/dL (74-106)
[2025-06-20 10:06] LABS: BUN/Creatinine Ratio 6.0 (10.0-20.0); Blood Urea Nitrogen < 5 mg/dL (9-23)
--- NOTE | 2025-06-20 11:13 | DVHPN2 ---
Progress Note Date Seen: Jun 20, 2025 Resident Creating Document: JON VIDES RESIDENT Medical Necessity Reason Pt with a Central, PICC or Fol: No Subjective Patient reports: No new complaints, Feels better Objective vital signs Vital Sign Date Time Temp Pulse Resp B/P (MAP) Pulse Ox O2 Delivery O2 Flow Rate FiO2 06/20/25 10:09 98.7 64 17 94 06/20/25 08:31 138/85 (102) 06/20/25 07:30 Room Air* 0 21 Total Intake and Output 06/19/25 06/19/25 06/20/25 15:00 23:00 07:00 Intake Total 600 ml 210 ml Output Total 1000 ml Balance -400 ml 210 ml medications Current Medications Medications Dose Ordered Sig/Chela Route Start Time Stop Time Status Last Admin Dose Admin Acetaminophen/ Hydrocodone Bitart 1 tab Q4HP PRN PO 06/17/25 19:30 06/20/25 04:30 1 TAB Ondansetron HCl 4 mg Q4HP PRN IV 06/17/25 19:30 06/19/25 14:10 4 MG Enoxaparin Sodium 40 mg DAILY SC 06/18/25 10:00 06/20/25 08:59 40 MG Acetaminophen 650 mg Q6HP PRN PO 06/17/25 19:30 Sodium Chloride 1,000 ml @ 75 mls/hr [id number] IV 06/17/25 19:30 06/20/25 00:50 75 MLS/HR Pantoprazole Sodium 40 mg BID IV 06/17/25 22:00 06/20/25 08:59 40 MG Nitroglycerin 0.4 mg Q5MINP PRN SL 06/17/25 19:30 Morphine Sulfate 2 mg Q30M PRN IV 06/17/25 19:30 06/19/25 01:24 2 MG Sucralfate 1 gm QID@0600,1130,1700,2200 GT 06/18/25 17:30 06/20/25 06:20 1 GM Ferrous Sulfate 325 mg TIDWMEALS PO 06/18/25 18:00 06/20/25 08:59 325 MG Levothyroxine Sodium 25 mcg QAM PO 06/19/25 07:00 06/20/25 06:21 25 MCG Mirtazapine 30 mg DAILY PO 06/19/25 10:00 06/20/25 09:00 30 MG Examination Patient lying in bed, in no acute distress General: Well-built, afebrile, palor, mucosae are moist Cardiovascular: Regular S1 and S2. No murmurs, gallops or rubs. No JVD elevation. No pedal edema Respiratory: Normal B/L air entry on room air. Clear lung sounds on auscultation Abdomen: Soft, diffuse tenderness, nondistended, hypoactive bowel sounds, no rebound tenderness, no organomegaly, no masses Genitourinary: Deferred MSK/skin: Mobilizes 4 limbs. Skin is dry and warm Neurological: No motor, no sensitive deficits, normal speech. Pupils are isocoric and reactive. Psych/Mental Status: A/Ox3 laboratory and microbiology Laboratory Tests 06/20/25 09:24 06/18/25 06:21 Test 06/20/25 09:24 Range/Units Serum Glucose 101 74-106 mg/dL Microbiology Date/Time Source Procedure Growth Status 06/18/25 23:25 Nose MRSA Screen - Final Complete Labs and/or images reviewed: Labs reviewed by me, Image(s) reviewed by me Problem List/Assessment/Plan Problem List/Assessment/Plan Intractable nausea and vomiting severe grade B to C linear erosive esophagitis with distal esophageal ulcers 2-3 cm sliding-type hiatal hernia Acute kidney injury vasomotor mediated ? CKD History of gastric bypass surgery/gastric sleeve Hypernatremia Hypokalemia History of gastritis and gastric polyps POSTOPERATIVE DIAGNOSES: 06/02/2025 1. 2-3 cm sliding-type hiatal hernia with severe grade B to C linear erosive esophagitis with distal esophageal ulcers from which biopsies were obtained 2. Patient had midbody gastric narrowing likely due to gastric stapling 3. Mild to moderate linear antral gastritis and mild duodenitis 4. Otherwise normal examination up to the 2nd and 3rd part of the duodenum Plan: Recommendation: Dr. King Patient reports feeling better, stable to be discharged Patient recently underwent upper EGD which showed hiatal hernia, erosive esophagitis with distal esophageal ulcers. Follow up with GI as outpatient for biopsy results and further management. Patient would benefit from outpatient GI follow up and elective colonoscopy has the last colonoscopy was around 10 years back Continue Protonix 40 mg and discharge Continue lactulose daily Replenish electrolytes Correct underlying electrolyte abnormalities Plan discussed with patient in which all questions have been answered Case discussed with Dr. King Plan discussed with: Patient JON VIDES RESIDENT Jun 20, 2025 11:13
[2025-06-20] MEDS ORDERED: HYDR-4902 PO (11:55)
--- NOTE | 2025-06-20 13:14 | DVHDS2 ---
Discharge Summary Date of Admission Jun 17, 2025 at 19:27 Date of Discharge: Jun 20, 2025 Labs/Diagnostic Data: Laboratory Results Test 06/20/25 09:24 06/19/25 01:44 06/18/25 21:27 06/18/25 06:21 Sodium Level 144 mmol/L (136-145) Potassium Level 3.4 mmol/L (3.5-5.1) Chloride Level 109 mmol/L (98-107) Carbon Dioxide Level 24 mmol/L (20-31) Anion Gap 11 (5-15) Blood Urea Nitrogen < 5 mg/dL (9-23) Creatinine 0.84 mg/dL (0.550-1.02) Glomerular Filtration Rate Calc 74 mL/min (>90) BUN/Creatinine Ratio 6.0 (10.0-20.0) Serum Glucose 101 mg/dL (74-106) Calcium Level 8.4 mg/dL (8.7-10.4) Urine Color Yellow (Yellow) Urine Clarity Clear (Clear) Urine pH 6.5 (5.0-9.0) Urine Specific [place] 1.014 (1.001-1.035) Urine Protein Negative (Negative) Urine Ketones 1+ (Negative) Urine Blood Negative /uL (Negative) Urine Nitrite Negative (Negative) Urine Bilirubin Negative (Negative) Urine Urobilinogen 2 mg/dL (Negative) Urine Leukocyte Esterase Negative /uL (Negative) Urine RBC None seen /hpf (0 - 4) Urine Microscopic WBC 1 /HPF (0-5) Urine Squamous Epithelial Cells Few /hpf (<5) Urine Bacteria None seen /hpf (None Seen) Urine Mucus Few (None Seen) Urine Glucose Normal mg/dL (Normal) Urine Opiates Screen Pos (NEGATIVE) Urine Fentanyl Screen Neg (NEGATIVE) Urine Barbiturates Screen Neg (NEGATIVE) Urine Phencyclidine Screen Neg (NEGATIVE) Urine Amphetamines Screen Neg (NEGATIVE) Urine Benzodiazepines Screen Neg (NEGATIVE) Urine Cocaine Screen Neg (NEGATIVE) Urine Cannabinoids Screen Pos (NEGATIVE) POC Glucose 108 mg/dl (70-106) White Blood Count 4.3 10^3/uL (4.4-10.8) Red Blood Count 4.25 10^6/uL (4.0-5.20) Hemoglobin 11.6 g/dL (12.2-16.2) Hematocrit 36.4 % (36.0-46.0) Mean Corpuscular Volume 85.7 fL (80.0-100.0) Mean Corpuscular Hemoglobin 27.3 pg (28.0-32.0) Mean Corpuscular Hemoglobin Concent 31.9 g/dL (32.0-36.0) Red Cell Distribution Width 15.5 % (11.8-14.3) Platelet Count 304 10^3/uL (140-450) Mean Platelet Volume 7.7 fL (6.9-10.8) Neutrophils (%) (Auto) 62.1 % (37.0-80.0) Lymphocytes (%) (Auto) 26.7 % (10.0-50.0) Monocytes (%) (Auto) 10.7 % (0.0-12.0) Eosinophils (%) (Auto) 0.2 % (0.0-7.0) Basophils (%) (Auto) 0.3 % (0.0-2.0) Neutrophils # (Auto) 2.7 10 ^3/uL (1.6-8.6) Lymphocytes # (Auto) 1.1 10 ^3/uL (0.4-5.4) Monocytes # (Auto) 0.5 10 ^3/uL (0-1.3) Eosinophils # (Auto) 0 10 ^3/uL (0-0.8) Basophils # (Auto) 0 10 ^3/uL (0-0.2) Nucleated Red Blood Cells 0.2 % Total Bilirubin 0.4 mg/dL (0.2-1.0) Aspartate Amino Transferase (AST) 18 U/L (13-40) Alanine Aminotransferase (ALT) 14 U/L (7-40) Alkaline Phosphatase 79 U/L (46-116) Total Protein 7.0 g/dL (5.7-8.2) Albumin 3.7 g/dL (3.2-4.8) Test 06/17/25 16:23 Lipase 24 U/L (12-53) Other Laboratory Tests 06/20/25 09:24 06/18/25 06:21 Brief Hx & Hospital Course: 70 yo female with hx of HTN, HLD, Thyroid disease, peptic ulcer, and pancreatitis c/o diffuse abdominal pain x 5 days. Patient was admitted on 06/04 for peptic ulcer and states that her pain is now worse. Seen by GI and recommended outpatient colonoscopy pain got better Condition at Discharge: Good Final Diagnosis/Problems List Hypokalemia. Nausea and vomiting due to peptic ulcer disease. Discharge Disposition: Home Discharge Instruct/Medications Diet: Regular Activity: No Restrictions, As Tolerated Follow Up/Referral: PCP in 7 days Medications: PPI, carafate Scheduled Ferrous Sulfate (Ferrous Sulfate), 325 MG PO TIDWMEALS Hydrocodone-Acetaminophen (Hydrocodone Bitartrate/AC 5-325 mg), 1 TAB PO TID Levothyroxine Sodium (Levothyroxine Sodium), 1 TAB PO DAILY, (Reported) Levothyroxine Sodium (Levothyroxine Sodium), 1 TAB PO QAM, (Reported) Pantoprazole Sodium Sesquihydr (Protonix), 40 MG PO BID Pantoprazole Sodium Sesquihydr (Pantoprazole Sodium Dr), 40 MG PO BID Potassium Chloride (Potassium Chloride ER), 20 MEQ PO DAILY Sucralfate (Carafate Susp), 1 GM PO QID@0600,1130,1700,2200 Sulfamethoxazole W/Trimethopri (Bactrim Ds Tablet), 1 TAB PO BID Scheduled PRN Docusate Sodium (Colace), 100 MG PO DAILY PRN Eszopiclone (Lunesta), 1 TAB PO QHSP PRN for INSOMNIA, (Reported) Ondansetron Odt 4MG Tab (Zofran Po), 4 MG PO TID PRN Discontinued Medications Mirtazapine (Remeron), 1 TAB PO, (Reported) Olanzapine (Zyprexa), 1 TAB PO, (Reported) Pregabalin (Pregabalin), 1 CAP PO TID, (Reported) Discharge Statement: "Patient was advised to return to the ER or call 911 if any headaches, dizziness, shortness of breath, chest pain, abdominal pain, bleeding, fevers, or worsening of medical condition. Patient was counseled about treatment plan, medications, possible side effects, patientverbalized understanding. All questions were answered to the best of my ability. This discharge took greater then 30 minutes in planning, reviewing documentation, counseling the patient, and discussing with other team members." ASSESSMENT ASSESSMENT Assessment Hypokalemia. Nausea and vomiting due to peptic ulcer disease. Date of Service: Jun 20, 2025 Billing Provider: NASIMA AVILA MD Common Visit Codes: 22104-FFU/OBS DISCH DAY >30min NASIMA AVILA MD Jun 20, 2025 13:14
--- NOTE | 2025-06-21 09:41 | ECG ---
[facility] Test Date: 2025-06-20 Test Time: 04:58:45 Pat Name: ROBERT COLES Department: Room: 0235T A Gender: F [employer] Underwriter: ACACIA : 1955 Requested By: JON VIDES Order Number: [id number] Reading MD: Naif Sibley Measurements Intervals [place] Rate: 51 P: 31 WA: 103 QRS: 11 QRSD: 82 T: 49 QT: 456 QTc: 420 Interpretive Statements Sinus rhythm Short [place] interval Low voltage, extremity and precordial leads Electronically Signed On 06-25-2025 8:16:47 PST by Naif Sibley Please click the below link to view image of tracing.
== END 2025-06-20 12:00 | disposition home or self-care (01) | DRG 384 ==
LOC: ER 15:24 → OVERFLOW 19:27 → TELE-EAST 06-18 18:45
PROVIDERS: ADMIT Hospitalist; ATTEND Hospitalist
DX: K27.9 Peptic ulcer, site unspecified, unspecified as acute or chronic, without hemorrhage or perforation (principal); K22.10 Ulcer of esophagus without bleeding; E03.9 Hypothyroidism, unspecified; E11.9 Type 2 diabetes mellitus without complications; I10 Essential (primary) hypertension; F31.9 Bipolar disorder, unspecified; E87.6 Hypokalemia; K29.70 Gastritis, unspecified, without bleeding; K21.00 Gastro-esophageal reflux disease with esophagitis, without bleeding; E78.5 Hyperlipidemia, unspecified; G47.00 Insomnia, unspecified; Z98.84 Bariatric surgery status; Z90.710 Acquired absence of both cervix and uterus; Z87.11 Personal history of peptic ulcer disease; Z86.73 Personal history of transient ischemic attack (TIA), and cerebral infarction without residual deficits
CPT/HCPCS: 36415; 74176; 80048; 80053; 80307; 81001; 82962; 83690; 85025; 87081; 93005; G0378; J2003; J2405; J2470; J3480